=== PATIENT | female | born 1960 | race Caucasian/White ===

== ENCOUNTER → 2018-09-29 08:55 | Outpatient (CLI) | payer BC, SELFPAY ==
[2018-09-29 10:28] LABS: C-Reactive Protein 1.7 mg/L (0.0-0.9); Uric Acid 4.8 mg/dL (2.6-7.2)
[2018-09-30 12:38] LABS: RA Latex Turbid. 10.1 IU/mL (0.0-13.9)
[2018-09-30 15:46] LABS: Erythrocyte Sedimentation Rate 11 mm/hr (0-30)
[2018-10-03 13:07] LABS: Anti-Cyclic Citrullinated Pept 9 units (0-19)
[2018-10-05 08:06] LABS: Antinuclear Antibodies, IFA Positive (.)
== END ==
PROVIDERS: Visit Provider Orthopaedic Surgery Hand Surgery
DX: M06.049 Rheumatoid arthritis without rheumatoid factor, unspecified hand (principal)
CPT/HCPCS: 36415; 84550; 85651; 86038; 86140; 86200; 86431

== ENCOUNTER → 2019-02-09 09:21 | Outpatient (CLI) | payer BC, SELFPAY ==
--- NOTE | 2019-02-09 09:22 | XR_ITS ---
XR DEXA axial skeleton HISTORY: ITS.REASON: screen ORDERING PHYSICIAN: Benton Wheatley MD PATIENT AGE: 58 years COMPARISON: 05/21/2016 FINDINGS: The BMD measured at the Right femoral neck is 0.888 g/cm squared with a T score of -1.1. This is considered Osteopenic according to the World Health Organization criteria. Fracture risk is Moderate. Treatment is advised. The L1 L4 density has a T score 0.9 unchanged. The density is also unchanged IMPRESSION: Osteopenia with moderate fracture risk. Suggest follow-up exam January 2021
--- NOTE | 2019-02-09 09:22 | MM_ITS ---
MM Dig screening mamm BI w/CAD CAD Screening COMPARISON: Digital mammograms with CAD 05/26/2016 INDICATION: There is no personal or family history of breast cancer TECHNIQUE: Standard CC and MLO images were obtained. R2 CAD reviewed. FINDINGS: Scattered fibroglandular densities are seen throughout both breasts. There are stable tiny nodular density outer quadrant left breast. There is a mole marker left breast. There is no suspicious lesion and no suspicious microcalcifications. IMPRESSION: Fibrofatty parenchyma no suspicious lesion seen BI-RADS Category: 2 Benign Finding(s) RECOMMENDED FOLLOW-UP: 1YR - 1 YEAR FOLLOW-UP (A letter has been sent to the patient regarding results of the study.)
== END ==
PROVIDERS: PCP Internal Medicine Adolescent Medicine; Visit Provider Obstetrics & Gynecology
DX: Z78.0 Asymptomatic menopausal state (principal); Z12.31 Encounter for screening mammogram for malignant neoplasm of breast
CPT/HCPCS: 77067; 77080

== ENCOUNTER → 2019-03-02 09:41 | Outpatient (CLI) | payer BC, SELFPAY ==
[2019-03-02 11:52] LABS: Basophils % 0.4 % (0.1-2.0); Eosinophils # 0.1 K/mm3 (0.0-0.4); Eosinophils % 1.1 % (0.1-12.0); Hematocrit 46.1 % (37.0-47.0); Hemoglobin 14.8 g/dL (12.2-16.2); Lymphocytes # 2.2 K/mm3 (0.7-4.5); Lymphocytes % 29.6 % (10-50); Mean Corpuscular HGB Conc 32.1 g/dL (31.8-35.4); Mean Corpuscular Hemoglobin 29.5 pg (27.0-31.2); Mean Corpuscular Volume 91.8 fl (81-99); Mean Platelet Volume 7.9 fl (7.4-10.4); Monocytes # 0.3 K/mm3 (0.1-1.0); Monocytes % 3.6 % (1.7-9.3); Neutrophils # 4.9 K/mm3 (1.8-7.8); Neutrophils % 65.1 % (37.0-80.0); Platelet Count 358 K/mm3 (142-424); Red Blood Count 5.02 M/mm3 (4.20-5.40); Red Cell Distribution Width 12.9 % (11.5-17.5); White Blood Count 7.5 K/mm3 (4.8-10.8)
[2019-03-02 12:10] LABS: Alanine Aminotransferase 28 U/L (12-78); Albumin Level 3.5 gm/dL (3.4-5.0); Alkaline Phosphatase 79 U/L (46-116); Anion Gap 11.9 mEq/L (5-15); Aspartate Amino Transferase 19 U/L (15-37); Bilirubin,Total 0.6 mg/dL (0.2-1.0); Blood Urea Nitrogen 12 mg/dL (7-18); Carbon Dioxide 31 mmol/L (21.0-32.0); Chloride 101 mmol/L (98-107); Cholesterol 252 mg/dL (140-200); Creatinine,Serum 0.76 mg/dL (0.55-1.02); Estimated Glomerular Filt Rate 79 ml/min (>60); GFR (African American) 95 ML/MIN (>60); Globulin 3.6 gm/dl (1.3-3.2); Glucose 101 mg/dL (74-106); HDL Cholesterol 36 mg/dL (29-89); LDL Cholesterol 161 mg/dL (0-130); Potassium 3.9 mmoL/L (3.5-5.1); Sodium 140 mmol/L (136-145); Total Protein,Serum 7.1 gm/dL (6.4-8.2); Triglycerides 273 mg/dL (30-200); VLDL Cholesterol 55 mg/dL (0-40)
== END ==
PROVIDERS: Visit Provider Internal Medicine Adolescent Medicine
DX: R06.02 Shortness of breath (principal); I10 Essential (primary) hypertension
CPT/HCPCS: 36415; 80053; 80061; 85025

== ENCOUNTER → 2019-05-11 07:53 | Outpatient (CLI) | payer BC, SELFPAY ==
--- NOTE | 2019-05-11 07:59 | XR_ITS ---
PROCEDURE: XR SHOULDER RT MIN 2V CLINICAL INDICATION: Right shoulder pain COMPARISON: No exams were available for comparison FINDINGS: No fracture, dislocation, lytic change, or blastic change evident. No significant degenerative change IMPRESSION: No acute findings. Dictated by: Cy Banks MD 05/11/2019 18:20 Electronically signed by Cy Banks MD in [place] 05/11/2019 18:20
== END ==
PROVIDERS: PCP Internal Medicine Adolescent Medicine; Visit Provider Orthopaedic Surgery
DX: M25.511 Pain in right shoulder (principal)
CPT/HCPCS: 73030

== ENCOUNTER 2019-05-11 09:38 | Outpatient (RCR) | payer BC, SELFPAY | END 2019-05-11 09:50 | disposition home or self-care (01) | LOC: OT 09:38 | PROVIDERS: Visit Provider Orthopaedic Surgery | DX: M25.531 Pain in right wrist (principal) | CPT/HCPCS: 97763 ==

== ENCOUNTER → 2019-05-23 15:19 | Outpatient (CLI) | payer BC, SELFPAY ==
--- NOTE | 2019-05-23 15:20 | MR_ITS ---
PROCEDURE: MR SHOULDER RT WO CON CLINICAL INDICATION: shoulder pain Right shoulder pain since August, injury with pain with limited range of motion COMPARISON: XR SHOULDER RT MIN 2V from 05/11/2019 TECHNIQUE: Routine multiplanar multi echo sequences are performed without gadolinium enhancement. FINDINGS: There are hypertrophic changes of the acromioclavicular joint with downsloping acromion and mild subacromial stenosis. There is mild impingement upon the musculotendinous junction of the supraspinatus muscle and tendon. There is mild thickening of the supraspinatus tendon with slight increase in T2 signal consistent with tendinopathy/tendinosis. There is also mild thickening of the infraspinatus tendon with increased T2 signal. There is some discontinuity involving the distal fibers superiorly of the supraspinatus tendon consistent with a partial tear. No evidence of complete or full-thickness tear. The subscapularis and teres minor tendons are intact. There does appear to be a SLAP tear of the anterior glenoid labrum. No fracture or dislocation is evident. Bicipital tendon is in place.. Mild osteoarthritic changes of the glenohumeral joint IMPRESSION: 1. Acromioclavicular arthropathy with subacromial stenosis and tendinopathy/tendinosis of the supraspinatus and infraspinatus tendon with suspected partial tear distally of the supraspinatus tendon 2. Irregular increased T2 signal of the anterior glenoid labrum consistent with a SLAP tear of the anterior glenoid labrum. Dictated by: Cy Banks MD 05/24/2019 07:38 Electronically signed by Cy Banks MD in [place] 05/26/2019 05:16
== END ==
PROVIDERS: PCP Internal Medicine Adolescent Medicine; Visit Provider Orthopaedic Surgery
DX: M75.00 Adhesive capsulitis of unspecified shoulder (principal)
CPT/HCPCS: 73221

== ENCOUNTER → 2019-06-22 11:35 | Outpatient (CLI) | payer BC, SELFPAY ==
[2019-06-22 12:18] LABS: Basophils # 0.1 K/mm3 (0-0.2); Basophils % 0.5 % (0.1-2.0); Eosinophils # 0.1 K/mm3 (0.0-0.4); Hematocrit 45.4 % (37.0-47.0); Hemoglobin 14.7 g/dL (12.2-16.2); Lymphocytes # 2.8 K/mm3 (0.7-4.5); Lymphocytes % 28.3 % (10-50); Mean Corpuscular HGB Conc 32.4 g/dL (31.8-35.4); Mean Corpuscular Hemoglobin 29.9 pg (27.0-31.2); Mean Corpuscular Volume 92.2 fl (81-99); Mean Platelet Volume 7.6 fl (7.4-10.4); Monocytes # 0.5 K/mm3 (0.1-1.0); Monocytes % 4.7 % (1.7-9.3); Neutrophils # 6.4 K/mm3 (1.8-7.8); Neutrophils % 65.5 % (37.0-80.0); Platelet Count 331 K/mm3 (142-424); Red Blood Count 4.92 M/mm3 (4.20-5.40); Red Cell Distribution Width 14.3 % (11.5-17.5); White Blood Count 9.8 K/mm3 (4.8-10.8)
[2019-06-22 13:32] LABS: Anion Gap 11.5 mEq/L (5-15); Blood Urea Nitrogen 16 mg/dL (7-18); Calcium 9.9 mg/dL (8.5-10.1); Carbon Dioxide 28 mmol/L (21.0-32.0); Chloride 100 mmol/L (98-107); Creatinine,Serum 0.79 mg/dL (0.55-1.02); Estimated Glomerular Filt Rate 75 ml/min (>60); GFR (African American) 91 ML/MIN (>60); Glucose 90 mg/dL (74-106); Potassium 3.5 mmoL/L (3.5-5.1); Sodium 136 mmol/L (136-145)
== END ==
PROVIDERS: Visit Provider Orthopaedic Surgery
DX: Z01.818 Encounter for other preprocedural examination (principal); M25.511 Pain in right shoulder
CPT/HCPCS: 36415; 80048; 85025

== ENCOUNTER 2019-06-27 09:30 | Outpatient (RCR) | payer BC, SELFPAY ==
--- NOTE | 2019-05-16 11:46 | HMH.OTOPEV ---
OT Inpatient Evaluation Rehab OT Outpatient Eval Start: 05/16/19 10:53 Freq: Status: Active Protocol: Document 05/16/19 10:53 TFRY (Rec: 05/16/19 11:46 TFRY [id number]) Electronically Signed By Alina Snell OT 05/16/19 10:53 Outpatient Therapy Subjective History Subjective History This is a 58 year old right handed female referred to occupational therapy services. Patient was referred to occupational therapy for right shoulder adhesive capsulitis. The problem started in August after the patient injuried her right wrist at work. Chief Complaint Pain,Stiff Symptom Type Ache,Throb,Dull Symptoms Relieved By Rest/Positioning Symptoms Aggravated By Physical Activity Prior Functional Limitations None Current Functional Limitations Reaching,Lifting,Housework, Sleeping Symptom Description Activity Dependent Level of pain today (0-10) 0 Pain scale - at its best (0-10) 0 Pain scale - at its worst (0-10) 8 Shoulder/Elbow Eval Shoulder Objective Measurements Shoulder ROM Right Shoulder Abduction Active Range of 85 Motion (degrees) Shoulder Abduction Passive Range of 90 Motion (degrees) Shoulder Flexion Active Range of Motion 110 (degrees) Query Text: Shoulder Flexion Passive Range of Motion 133 (degrees) Shoulder External Rotation Active Range 20 of Motion (degrees) Shoulder External Rotation Passive Range 25 of Motion (degrees) Shoulder Internal Rotation Active Range 35 of Motion (degrees) Shoulder Internal Rotation Passive Range 54 of Motion (degrees) Shoulder Extension Active Range of 25 Motion (degrees) pain with active ROM shoulder exam right standard pain with passive ROM shoulder exam right standard decreased ROM shoulder exam standard right Shoulder MMT Shoulder Abduction Strength Grade 3+ Fair+ Shoulder Extension Strength Grade 3+ Fair+ Shoulder Flexion Strength Grade 3+ Fair+ Shoulder Horizontal Abduction Strength 3+ Fair+ Grade Shoulder Horizontal Adduction Strength 3+ Fair+ Grade Shoulder External Rotation Strength 3+ Fair+ Grade Shoulder Internal Rotation Strength 3+ Fair+ Grade Shoulder Strength Patient Testing Sitting Position
--- NOTE | 2019-06-13 11:27 | HMH.RHREAS ---
Rehab Reassessment Rehab OP Re-assessment Start: 06/13/19 11:15 Freq: Status: Active Protocol: Document 06/13/19 11:15 TFRY (Rec: 06/13/19 11:27 TFRY [id number]) Electronically Signed By Alina Snell OT 06/13/19 11:15 Rehab Re-assessment Subjective Subjective I think it's about 40% better . Objective Objective Notes Patient seen this date for skilled occupational therapy services. See exercise flow sheet for exercises. Right shoulder PROM - Flexion - 150; abduction - 115; ext. rot. - 55; int. rot. - 30. Strength - 3+/4-/5 throughout. Assessment Progress Assessment Progressing as Expected Assessment Notes ROM improving gradually as well as strength Patient goals met Met HEP goal and pain decreasing with activities per patient report. Goals Not Met ROM/strength Plan Plan Continue working on improving strength and ROM Frequency of Therapy 2x per week Duration of therapy 4 weeks Time and Billing Re-Eval Time 5 Re-Eval Billing Units 0 PHYSICIAN CERTIFICATION: I certify the specified therapy services for Tracey Jacobs are required, authorized, and reviewed every 30 days.
== END 2019-06-27 09:35 | disposition home or self-care (01) ==
LOC: OT 09:30
PROVIDERS: PCP Internal Medicine Adolescent Medicine; Visit Provider Orthopaedic Surgery
DX: M75.01 Adhesive capsulitis of right shoulder (principal); M75.111 Incomplete rotator cuff tear or rupture of right shoulder, not specified as traumatic; S43.431D Superior glenoid labrum lesion of right shoulder, subsequent encounter
CPT/HCPCS: 97014; 97110; 97140; 97164; 97165; G0283

== ENCOUNTER → 2019-09-04 13:37 | Outpatient (CLI) | payer BC, SELFPAY ==
--- NOTE | 2019-09-04 13:41 | XR_ITS ---
PROCEDURE: XR SHOULDER RT MIN 2V CLINICAL INDICATION: shoulder pain Limited range of motion COMPARISON: XR SHOULDER RT MIN 2V from 05/11/2019 MR SHOULDER RT WO CON from 05/23/2019 FINDINGS: There appears to have been osteotomy at distal aspect of clavicle compared to 05/11/2019. Also appears to be a fracture the superior the distal clavicle. Please correlate with surgical procedure. IMPRESSION: Postsurgical changes distal clavicle with a fracture of the distal clavicle superiorly Dictated by: Cy Banks MD 09/04/2019 14:49 Electronically signed by Cy Banks MD in [place] 09/04/2019 14:49
== END ==
PROVIDERS: PCP Internal Medicine Adolescent Medicine; Visit Provider Orthopaedic Surgery
DX: S43.431A Superior glenoid labrum lesion of right shoulder, initial encounter (principal)
CPT/HCPCS: 73030

== ENCOUNTER → 2019-10-03 13:26 | Outpatient (POV) | payer BC, SELFPAY | PROVIDERS: PCP Dermatology; Visit Provider Dermatology | DX: Z00.00 Encounter for general adult medical examination without abnormal findings (principal) ==

== ENCOUNTER → 2019-11-07 13:26 | Outpatient (CLI) | payer BC, SELFPAY ==
[2019-11-07 15:25] LABS: Hemoglobin A1C 5.5 % (4.0-6.0)
== END ==
PROVIDERS: Visit Provider Orthopaedic Surgery
DX: M75.00 Adhesive capsulitis of unspecified shoulder (principal)
CPT/HCPCS: 36415; 83036

== ENCOUNTER 2019-12-01 10:30 | Outpatient (RCR) | payer BC, SELFPAY ==
--- NOTE | 2019-07-06 10:18 | HMH.OTOPEV ---
OT Inpatient Evaluation Rehab OT Outpatient Eval Start: 07/06/19 09:26 Freq: Status: Active Protocol: Document 07/06/19 09:27 TFRY (Rec: 07/06/19 10:10 TFRY [id number]) Electronically Signed By Alina Snell OT 07/06/19 09:27 Outpatient Therapy Subjective History Subjective History This is a 58 year old right hand female referred to occupational as patient is status post right shoulder arthroscopy, biceps tenotomy, capsular release, subacrominal decompression with acromioplasty, and distal clavicle excision. Chief Complaint Pain Symptom Type Ache,Throb,Sharp,Dull Symptoms Relieved By Rest/Positioning,Prescription Meds Symptoms Aggravated By Physical Activity Prior Functional Limitations None Current Functional Limitations Reaching,Lifting,Housework, Dressing,Driving,Sleeping Symptom Description Constant but Variable Level of pain today (0-10) 9 Pain scale - at its best (0-10) 5 Pain scale - at its worst (0-10) 9 Shoulder/Elbow Eval Shoulder Objective Measurements Palpation Tenderness tenderness shoulder exam standard right Shoulder Palpation Findings Tenderness swelling shoulder exam standard right Shoulder ROM Right Shoulder Abduction Passive Range of 70 Motion (degrees) Shoulder Flexion Passive Range of Motion 135 (degrees) Shoulder External Rotation Passive Range 25 of Motion (degrees) Shoulder Internal Rotation Passive Range 30 of Motion (degrees) pain with passive ROM shoulder exam right standard decreased ROM shoulder exam standard right Shoulder MMT Shoulder Strength Reason Not Measured Orthopedic Precautions Elbow Objective Measurements OT Outpatient Assessment Impairments Problems/Impairments Palpation Tenderness,Impaired Range of Motion,Impaired Strength,Impaired Lifting, Impaired Dressing,Impaired Shower/Bathing,Impaired Household Care,Subjective C/O Pain Prognosis Rehab Potential Good Clinical Impression Consistent with Diagnosis Yes Short Term Goals Number of Weeks 4 Increase Range of Motion Yes: PROM right shoulder - WFL Improve Ability to Dress Self Yes: Patient report increased independence Improve Ability to Shower/Bathe Self Yes: Patient repor
--- NOTE | 2019-07-06 10:46 | HMH.RHREAS ---
Rehab Reassessment Rehab OP Re-assessment Start: 07/06/19 10:33 Freq: Status: Active Protocol: Document 07/06/19 10:34 TFRY (Rec: 07/06/19 10:46 TFRY [id number]) Electronically Signed By Alina Snell OT 07/06/19 10:34 Rehab Re-assessment Subjective Subjective It is at least 75% better from when we started. Objective Objective Notes Patient seen this date for skilled occupational therapy services. See exercise flow sheet for exercises. Reassessment of left shoulder AROM: flexion - 165; abduction - 135; int. rot. - WFL; ext. rot. - WFL. Left shoulder strength - flexion - 3+/5; abduction - 3/ 3+/5; int. rot. - 3+/5; ext. rot. - 3+/5. Reports that she has increased indpendence at home. Assessment Progress Assessment Progressing as Expected Assessment Notes AROM and strength are both improving. Patient goals met STG's - 6/7 LTG's- 11/08 Goals Not Met strength Plan Plan Continue OT working on unmet goals. Frequency of Therapy 2x per week Duration of therapy 5 weeks Time and Billing Re-Eval Time 5 Re-Eval Billing Units 0 PHYSICIAN CERTIFICATION: I certify the specified therapy services for Tracey Jacobs are required, authorized, and reviewed every 30 days.
--- NOTE | 2019-08-10 13:41 | HMH.RHREAS ---
Rehab Reassessment Rehab OP Re-assessment Start: 07/06/19 10:33 Freq: Status: Active Protocol: Document 08/10/19 10:57 MIRZA (Rec: 08/10/19 13:41 MIRZA [id number]) Electronically Signed By Alcides Patel OT 08/10/19 10:57 Rehab Re-assessment Subjective Subjective It is still giving me fits. Objective Objective Notes Pt continues to be seen twice a week in order to address left shoulder deficits. Pt engages in AROM/AAROM/ strengthening exercises. Pt also receives PROM manual stretching to left shoulder in all planes. Pt also receives modalities in order to decrease pain/inflammation. Assessment Progress Assessment Slower Than Expected Assessment Notes Pt continues to have significant decline in AROM and strength at left shoulder. Reassessment of left shoulder Current L shoulde rAROM: flexion - 125; abduction - 110 ; int. rot. - 50; ext. rot. - 50. PROM Current L shoulder Flex: 154 degrees Abd: 125 degrees ER: 58 degrees IR: 48 degrees Left shoulder strength - flexion - 3/5; abduction - 3/5 ; int. rot. - 3/5; ext. rot. - 3/5. 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 Plan Plan Continue OT working on unmet goals. Frequency of Therapy 2x per week Duration of therapy 5 weeks Time and Billing Re-Eval Time 15 Re-Eval Billing Units 1 PHYSICIAN CERTIFICATION: I certify the specified therapy services for Tracey Jacobs are required, authorized, and reviewed every 30 days.
--- NOTE | 2019-08-10 13:48 | HMH.RHREAS ---
Rehab Reassessment Rehab OP Re-assessment Start: 07/06/19 10:33 Freq: Status: Active Protocol: Document 08/10/19 10:57 MIRZA (Rec: 08/10/19 13:41 HANKL [id number]) Electronically Signed By Alcides Patel OT 08/10/19 10:57 Rehab Re-assessment Subjective Subjective It is still giving me fits. Objective Objective Notes Pt continues to be seen twice a week in order to address right shoulder deficits. Pt engages in AROM/AAROM/ strengthening exercises. Pt also receives PROM manual stretching to right shoulder in all planes. Pt also receives modalities in order to decrease pain/inflammation. Assessment Progress Assessment Slower Than Expected Assessment Notes Pt continues to have significant decline in AROM and strength at right shoulder . Reassessment of Right shoulder Current R shoulder AROM: flexion - 125; abduction - 110 ; int. rot. - 50; ext. rot. - 50. PROM Current R shoulder Flex: 154 degrees Abd: 125 degrees ER: 58 degrees IR: 48 degrees Right shoulder strength - flexion - 3/5; abduction - 3/5 ; int. rot. - 3/5; ext. rot. - 3/5. 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 Plan Plan Continue OT working on unmet goals. Frequency of Therapy 2x per week Duration of therapy 5 weeks Time and Billing Re-Eval Time 15 Re-Eval Billing Units 1 PHYSICIAN CERTIFICATION: I certify the specified therapy services for Tracey Jacobs are required, authorized, and reviewed every 30 days.
--- NOTE | 2019-09-13 14:58 | HMH.RHREAS ---
Rehab Reassessment Rehab OP Re-assessment Start: 07/06/19 10:33 Freq: Status: Active Protocol: Document 09/13/19 13:54 RMARSHALL (Rec: 09/13/19 14:58 RMARSHALL [id number]) Electronically Signed By Alcides Patel OT 09/13/19 13:54 Rehab Re-assessment Subjective Subjective I just don't feel like I am getting better. Objective Objective Notes Pt continues to be seen twice a week in order to address right shoulder deficits. Pt engages in AROM/AAROM/ strengthening exercises. Pt also receives PROM manual stretching to right shoulder in all planes. Pt also receives modalities in order to decrease pain/inflammation. Assessment Progress Assessment Slower Than Expected Assessment Notes Pt continues to have significant decline in AROM and strength at right shoulder . Pt reports pain at a 7/10 during use every day. Pt demonstrates minimal improvement in AROM in both flexion and external rotation. Reassessment of Right shoulder Current R shoulder AROM: flexion - 130; abduction - 110 ; int. rot. - 60; ext. rot. - 50. PROM Current R shoulder Flex: 154 degrees Abd: 125 degrees ER: 58 degrees IR: 48 degrees Right shoulder strength - flexion - 3/5; abduction - 3/5 ; int. rot. - 3/5; ext. rot. - 3/5. 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 Plan Plan Continue OT working on unmet goals. Frequency of Therapy 2x per week Duration of therapy 5 weeks Time and Billing Re-Eval Time 15 Re-Eval Billing Units
--- NOTE | 2019-10-10 15:51 | HMH.RHREAS ---
Rehab Reassessment Rehab OP Re-assessment Start: 07/06/19 10:33 Freq: Status: Active Protocol: Document 10/10/19 15:45 RMARSHALL (Rec: 10/10/19 15:51 RMARSHALL [id number]) Electronically Signed By Alcides Patel OT 10/10/19 15:45 Rehab Re-assessment Objective Objective Notes Pt continues to be seen twice a week in order to address right shoulder deficits. Pt engages in AROM/AAROM/ strengthening exercises. Pt also receives PROM manual stretching to right shoulder in all planes. Pt also receives modalities in order to decrease pain/inflammation. Assessment Progress Assessment Slower Than Expected Assessment Notes Pt continues to have significant decline in AROM and strength at right shoulder . Pt was recently given a steroid injection by surgeon this previous wednesday. Pt informed therapist at this time she does not feel the injection has helped. Pt reports pain at a 8/10 at worse. Pt demonstrates minimal improvement in AROM in both flexion and external rotation. Reassessment of Right shoulder Current R shoulder AROM: flexion - 112; abduction - 100 ; int. rot. - 70; ext. rot. - 50. PROM Current R shoulder Flex: 160 degrees Abd: 140 degrees ER: 75 degrees IR: 60 degrees Right shoulder strength - flexion - 3/5; abduction - 3/5 ; int. rot. - 3/5; ext. rot. - 3/5. Pt appears to have delcined since last re-assessment with AROM. However, pt has improved with PROM. 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 Plan
--- NOTE | 2019-11-15 13:54 | HMH.RHREAS ---
Rehab Reassessment Rehab OP Re-assessment Start: 07/06/19 10:33 Freq: Status: Active Protocol: Document 11/15/19 13:03 RMARSHALL (Rec: 11/15/19 13:53 RMARSHALL [id number]) Electronically Signed By Alcides Patel OT 11/15/19 13:03 Rehab Re-assessment Subjective Subjective I still have a lot of pain. Objective Objective Notes Pt continues to be seen twice a week in order to address right shoulder deficits. Pt engages in AROM/AAROM/ strengthening exercises. Pt also receives PROM manual stretching to right shoulder in all planes. Pt also receives modalities in order to decrease pain/inflammation. Assessment Progress Assessment Slower Than Expected Assessment Notes Pt continues to have a decline in AROM at right shoulder. Pt claims she still has severe pain often at right shoulder ~ 8/10 at worst. Pt is still having difficulty with sleeping due to pain. Pt demonstrates minimal improvement in AROM in both flexion and external rotation. Reassessment of Right shoulder Current R shoulder AROM: flexion - 132; abduction - 110 ; int. rot. - 80; ext. rot. - 50. PROM Current R shoulder Flex: 160 degrees Abd: 160 degrees ER: 90 degrees IR: 80 degrees Right shoulder strength - flexion - 4/5; abduction - /5; int. rot. - 3/5; ext. rot. - 4/5. Pt appears to have delcined since last re-assessment with AROM. However, pt has improved with PROM. Patient goals met n/a Goals Not Met short term goals Revised Goals Continue progressing towards goals written on initial evaluation. Plan Plan Continue OT working on unmet goals. Frequenc
== END 2019-12-01 10:35 | disposition home or self-care (01) ==
LOC: OT 10:30
PROVIDERS: PCP Internal Medicine Adolescent Medicine; Visit Provider Orthopaedic Surgery
DX: M75.01 Adhesive capsulitis of right shoulder (principal); M75.111 Incomplete rotator cuff tear or rupture of right shoulder, not specified as traumatic; S43.431D Superior glenoid labrum lesion of right shoulder, subsequent encounter
CPT/HCPCS: 97014; 97110; 97140; 97164; 97165; G0283

== ENCOUNTER 2019-12-01 11:00 | Outpatient (RCR) | payer BC, SELFPAY | END 2019-12-01 11:05 | disposition home or self-care (01) | LOC: OT 11:00 | PROVIDERS: PCP Internal Medicine Adolescent Medicine; Visit Provider Orthopaedic Surgery | DX: G56.01 Carpal tunnel syndrome, right upper limb (principal) | CPT/HCPCS: 97014; 97033; 97110; 97140; 97164; 97165; G0283 ==

== ENCOUNTER → 2019-12-15 08:25 | Outpatient (CLI) | payer BC, SELFPAY ==
--- NOTE | 2019-12-15 08:25 | MR_ITS ---
PROCEDURE: MR SHOULDER RT WO CON CLINICAL INDICATION: rt shoulder pain Right shoulder pain with limited range of motion, previous surgery COMPARISON: XR SHOULDER RT MIN 2V from 05/11/2019 MR SHOULDER RT WO CON from 05/23/2019 XR SHOULDER RT MIN 2V from 09/04/2019 TECHNIQUE: Routine multiplanar multi echo sequences are performed without gadolinium enhancement. FINDINGS: Artifact is present from the previous surgery. The supraspinatus and infraspinatus tendons appear intact. There is some increased T2 signal within the supraspinatus tendon distally suggesting tendinopathy/tendinosis. No evidence of full-thickness or complete tear. Osteotomy changes noted of the distal clavicle. There is some thinning with slight increased signal of the bicipital tendon of the long head of the biceps. There is questionable defect in the inferior aspect of the glenoid labrum slightly posterior. There is some artifact present at this region. This could represent a surgical defect. Please correlate with surgical history. IMPRESSION: 1. Status post osteotomy of the AC joint. Artifact is present from the previous surgery 2. No evidence of full-thickness tear of the supraspinatus or infraspinatus tendons. Suspect tendinopathy/tendinosis of the supraspinatus and infraspinatus tendons 3. There is a questionable small defect in the inferior glenoid labrum posteriorly with some artifact in this region possibly due to postsurgical changes. Dictated by: Cy Banks MD 12/20/2019 09:28 Electronically signed by Cy Banks MD in [place] 12/20/2019 09:28
== END ==
PROVIDERS: PCP Internal Medicine Adolescent Medicine; Visit Provider Orthopaedic Surgery
DX: S43.431D Superior glenoid labrum lesion of right shoulder, subsequent encounter (principal)
CPT/HCPCS: 73221

== ENCOUNTER → 2019-12-21 10:12 | Outpatient (CLI) | payer BC, SELFPAY ==
[2019-12-21 11:08] LABS: Basophils # 0.1 K/mm3 (0-0.2); Basophils % 0.9 % (0.1-2.0); Eosinophils # 0.4 K/mm3 (0.0-0.4); Eosinophils % 4.1 % (0.1-12.0); Hematocrit 45.1 % (37.0-47.0); Hemoglobin 14.6 g/dL (12.2-16.2); Mean Corpuscular HGB Conc 32.4 g/dL (31.8-35.4); Mean Corpuscular Hemoglobin 28.8 pg (27.0-31.2); Mean Platelet Volume 7.5 fl (7.4-10.4); Monocytes # 0.5 K/mm3 (0.1-1.0); Monocytes % 4.7 % (1.7-9.3); Neutrophils # 6.7 K/mm3 (1.8-7.8); Neutrophils % 69.3 % (37.0-80.0); Platelet Count 404 K/mm3 (142-424); Red Blood Count 5.06 M/mm3 (4.20-5.40); Red Cell Distribution Width 14.5 % (11.5-17.5); White Blood Count 9.7 K/mm3 (4.8-10.8)
[2019-12-21 11:41] LABS: Chloride 96 mmol/L (98-107); Potassium 3.6 mmoL/L (3.5-5.1); Sodium 135 mmol/L (136-145)
[2019-12-21 11:43] LABS: Alanine Aminotransferase 29 U/L (12-78); Aspartate Amino Transferase 34 U/L (14-36); Blood Urea Nitrogen 11 mg/dl (7-17); Estimated Glomerular Filt Rate 86 ml/min (>60); GFR (African American) 104 ML/MIN (>60)
[2019-12-21 11:44] LABS: Albumin Level 4.6 g/dl (3.5-5.0); Albumin/Globulin Ratio 1.4 (1.1-1.8); Alkaline Phosphatase 90 U/L (38-126); Anion Gap 12.6 mEq/L (5-15); Bilirubin,Total 0.7 mg/dl (0.2-1.3); Calcium 10.8 mg/dl (8.4-10.2); Carbon Dioxide 30 mmol/L (22.0-30.0); Globulin 3.3 g/dL (1.3-3.2); Glucose 107 mg/dl (74-100); Total Protein,Serum 7.9 g/dl (6.3-8.2)
== END ==
PROVIDERS: Visit Provider Orthopaedic Surgery
DX: Z01.818 Encounter for other preprocedural examination (principal)
CPT/HCPCS: 36415; 80053; 84443; 85025

== ENCOUNTER 2020-03-08 15:00 | Outpatient (RCR) | payer BC, SELFPAY | END 2020-03-08 16:00 | disposition home or self-care (01) | LOC: OT 15:00 | PROVIDERS: PCP Internal Medicine Adolescent Medicine; Visit Provider Orthopaedic Surgery | DX: M25.531 Pain in right wrist; R20.0 Anesthesia of skin | CPT/HCPCS: 97110; 97140; 97165 ==

== ENCOUNTER 2020-03-08 15:30 | Outpatient (RCR) | payer BC, SELFPAY | END 2020-03-08 16:20 | disposition home or self-care (01) | LOC: OT 15:30 | PROVIDERS: PCP Internal Medicine Adolescent Medicine; Visit Provider Orthopaedic Surgery | DX: M75.01 Adhesive capsulitis of right shoulder (principal) | CPT/HCPCS: 97014; 97110; 97140; 97166; G0283 ==

== ENCOUNTER → 2020-05-20 12:22 | Outpatient (CLI) | payer BC, SELFPAY ==
[2020-05-20 13:01] LABS: Chloride 101 mmol/L (98-107)
[2020-05-20 13:02] LABS: Potassium 4.1 mmoL/L (3.5-5.1); Sodium 139 mmol/L (136-145)
[2020-05-20 13:04] LABS: Alanine Aminotransferase 37 U/L (12-78); Alkaline Phosphatase 70 U/L (38-126); Anion Gap 13.1 mEq/L (5-15); Aspartate Amino Transferase 36 U/L (14-36); Bilirubin,Total 0.5 mg/dl (0.2-1.3); Blood Urea Nitrogen 15 mg/dl (7-17); Carbon Dioxide 29 mmol/L (22.0-30.0); Estimated Glomerular Filt Rate 74 ml/min (>60); GFR (African American) 89 ML/MIN (>60)
[2020-05-20 13:05] LABS: Albumin Level 4.5 g/dl (3.5-5.0); Albumin/Globulin Ratio 1.7 (1.1-1.8); Calcium 10.6 mg/dl (8.4-10.2); Chol/HDL Ratio 8.4 (1-3.5); Cholesterol 227 mg/dl (140-200); Globulin 2.6 g/dL (1.3-3.2); Glucose 99 mg/dl (74-100); HDL Cholesterol 27 mg/dl (40-60); Total Protein,Serum 7.1 g/dl (6.3-8.2)
[2020-05-20 13:08] LABS: Basophils % 0.4 % (0.1-2.0); Eosinophils # 0.1 K/mm3 (0.0-0.4); Hematocrit 44.5 % (37.0-47.0); Hemoglobin 14.8 g/dL (12.2-16.2); Lymphocytes # 2.2 K/mm3 (0.7-4.5); Mean Corpuscular HGB Conc 33.2 g/dL (31.8-35.4); Mean Corpuscular Hemoglobin 28.6 pg (27.0-31.2); Mean Corpuscular Volume 86.1 fl (81-99); Mean Platelet Volume 7.7 fl (7.4-10.4); Monocytes # 0.5 K/mm3 (0.1-1.0); Monocytes % 6.6 % (1.7-9.3); Neutrophils # 4.3 K/mm3 (1.8-7.8); Neutrophils % 60.9 % (37.0-80.0); Platelet Count 356 K/mm3 (142-424); Red Blood Count 5.16 M/mm3 (4.20-5.40); Triglycerides 455 mg/dl (30-150); White Blood Count 7.1 K/mm3 (4.8-10.8)
[2020-05-20 13:16] LABS: Direct LDL Cholesterol 105.98 mg/dL (100-129)
== END ==
PROVIDERS: Visit Provider Internal Medicine Adolescent Medicine
DX: E78.5 Hyperlipidemia, unspecified (principal); I10 Essential (primary) hypertension
CPT/HCPCS: 36415; 80053; 80061; 85025

== ENCOUNTER → 2021-01-20 11:33 | Outpatient (CLI) | payer BC, SELFPAY ==
[2021-01-20 11:57] LABS: Basophils # 0.1 K/mm3 (0-0.2); Eosinophils # 0.2 K/mm3 (0.0-0.4); Eosinophils % 2.8 % (0.1-12.0); Hematocrit 42.9 % (37.0-47.0); Hemoglobin 14.6 g/dL (12.2-16.2); Lymphocytes # 1.7 K/mm3 (0.7-4.5); Lymphocytes % 27.7 % (10-50); Mean Corpuscular HGB Conc 34.1 g/dL (31.8-35.4); Mean Corpuscular Hemoglobin 28.8 pg (27.0-31.2); Mean Corpuscular Volume 84.7 fl (81-99); Mean Platelet Volume 7.8 fl (7.4-10.4); Monocytes # 0.4 K/mm3 (0.1-1.0); Monocytes % 5.7 % (1.7-9.3); Neutrophils % 62.8 % (37.0-80.0); Platelet Count 362 K/mm3 (142-424); Red Blood Count 5.07 M/mm3 (4.20-5.40); Red Cell Distribution Width 13.9 % (11.5-17.5); White Blood Count 6.3 K/mm3 (4.8-10.8)
[2021-01-20 12:20] LABS: Alanine Aminotransferase 41 U/L (12-78); Albumin Level 4.9 g/dl (3.5-5.0); Albumin/Globulin Ratio 1.7 (1.1-1.8); Alkaline Phosphatase 68 U/L (38-126); Anion Gap 13.1 mEq/L (5-15); Aspartate Amino Transferase 33 U/L (14-36); Bilirubin,Total 0.5 mg/dl (0.2-1.3); Blood Urea Nitrogen 18 mg/dl (7-17); Calcium 10.9 mg/dl (8.4-10.2); Carbon Dioxide 30 mmol/L (22.0-30.0); Chloride 103 mmol/L (98-107); Chol/HDL Ratio 5.7 (1-3.5); Cholesterol 211 mg/dl (140-200); Estimated Glomerular Filt Rate 64 ml/min (>60); GFR (African American) 78 ML/MIN (>60); Globulin 2.9 g/dL (1.3-3.2); Glucose 104 mg/dl (74-100); HDL Cholesterol 37 mg/dl (40-60); Potassium 5.1 mmoL/L (3.5-5.1); Sodium 141 mmol/L (136-145); Total Protein,Serum 7.8 g/dl (6.3-8.2); Triglycerides 170 mg/dl (30-150); VLDL Cholesterol 34 mg/dL (0-40)
[2021-01-20 12:31] LABS: Direct LDL Cholesterol 136.89 mg/dL (100-129)
[2021-01-20 12:51] LABS: Thyroid Stimulating Hormone 0.84 uIU/mL (0.465-4.68)
[2021-01-20 13:09] LABS: Vitamin B12 627 pg/mL (239-931)
== END ==
PROVIDERS: Visit Provider Internal Medicine Adolescent Medicine
DX: E78.5 Hyperlipidemia, unspecified (principal); F51.01 Primary insomnia
CPT/HCPCS: 36415; 80053; 80061; 82607; 84443; 85025

== ENCOUNTER → 2021-10-02 13:56 | Outpatient (CLI) | payer MEDICARE, SELFPAY ==
--- NOTE | 2021-10-02 14:00 | MR_ITS ---
FINAL REPORT CLINICAL HISTORY: ANTERIOR SHOULDER PAIN, ROTATOR CUFF SYNDROME OF LT SHOULDER. SHOULDER PAIN UNABLE TO SLEEP AT NIGHT. PAIN WHEN RAISING ARM ABOVE HEAD. SYMPTOMS [id number]. NO INJURY OR TRAUMA. FINDINGS: Multiplanar MR imaging of the left shoulder was performed without contrast. There is supraspinatus and infraspinatus tendinosis. There is a small intrasubstance tear of the distal supraspinatus tendon of less than 50%. There is no full-thickness tendon tear. There is moderate acromioclavicular joint degenerative change. A small amount of fluid is seen in the subacromial/subdeltoid bursa. The glenoid labrum is intact. The long head of the biceps tendon is intact. A small glenohumeral joint effusion is seen. There is no evidence of fracture or dislocation. There is a small subchondral cyst in the superior humeral head. The musculature is intact. There is no evidence of soft tissue mass. IMPRESSION: 1. Supraspinatus and infraspinatus tendinosis. 2. Small intrasubstance tear of the distal supraspinatus tendon of less than 50%. No full-thickness tendon tear. 3. Other findings as above. Reviewed, Interpreted and Dictated by Tuan Chow III, MD Transcribed by LOYDA Rodriguez Authenticated by Tuan Chow III, MD on 10/02/2021 04:18:30 PM [facility]
== END ==
PROVIDERS: PCP Internal Medicine Adolescent Medicine; Visit Provider Internal Medicine Adolescent Medicine
DX: M25.512 Pain in left shoulder (principal); M75.102 Unspecified rotator cuff tear or rupture of left shoulder, not specified as traumatic
CPT/HCPCS: 73221

== ENCOUNTER → 2021-11-17 12:05 | Outpatient (CLI) | payer MEDICARE, SELFPAY | PROVIDERS: PCP Internal Medicine Adolescent Medicine; Visit Provider Surgery | DX: Z01.812 Encounter for preprocedural laboratory examination (principal) | CPT/HCPCS: C9803; U0003; U0005 ==

== ENCOUNTER 2021-11-19 06:19 | Day surgery (SDC) | payer MEDICARE, SELFPAY ==
[2021-11-17 13:42] VITALS: BMI 29.6
[2021-11-19 06:36] VITALS: BP 153/76; PULSE 84; RESP 18; TEMP 36.8; O2SAT 94
--- NOTE | 2021-11-19 07:21 | HMH.ANESCL ---
[facility] Anesthesia Checklist - Structural Data Admitted From: Home Planned Operative Procedure/s: flex sig Consent for Planned Operative Procedure(s) Verified: Yes - Additional verifications Anesthesia Reactions: No Hx Blood Transfusions: No Blood Transfusion Reaction: No - Airway Assessment C-Spine Mobility Assessed: Yes TMJ Mobility Assessed: Yes Dentition: Dentures-good fit - Neurological Assessment Level of Consciousness: Awake, Alert, Appropriate - Anesthesia Plan Anesthesia Risk discussed: Yes Anesthesia Plan: Verified ASA Class: II Anesthesia Type: MAC [facility] History I have reviewed the patient's past medical history: Yes Medical History: Reports:: Hypertension, Osteoporosis Denies:: Cancer, Diabetes Mellitus Type 1, Diabetes Mellitus Type 2, Internal Pacemaker, Lung Disease, MRSA, Seizures *Have you ever received a pneumonia vaccine?: No *Have you received a flu vaccine this season?: No Other Medical History: Reports: Osteoporosis. Denies: Blood Transfusion Reaction Anesthesia experience/problems:: none Laterality Cases: Right: Arthroscopy Shoulder, Bilateral: Tonsillectomy Other Surgeries: Yes: Colonoscopy, Hysterectomy-Total, Other. No: Pacemaker Amputation: No Fractures: No - *Social History Last grade of school completed: High school graduate Smoking Status: Former smoker Tobacco Type: cigarettes # Packs/Day (cigarettes): 1 Alcohol Intake: never Substance Use Type: denies use *Occupational Status:: retired Housing: house Household Members: spouse *Travel in the last 8 weeks: None Family Hx:: No significant family history
[2021-11-19 07:28] VITALS: O2SAT 94
--- NOTE | 2021-11-19 07:49 | HMH.SCOPE ---
- Procedure: Date: 11/19/21 Patient Date of :: 1960 Procedure Performed:: Anoscopy Flexible sigmoidoscopy with biopsy Indications:: Diarrhea Bright red blood per rectum Performing Provider:: Ayden Vazquez MD Referring Provider:: Dr. Giles Sedation:: Monitored anesthesia care Procedure:: After informed consent was obtained the patient was taken to the endoscopy suite. Sedation ensued after the patient was transferred to the left lateral decubitus position. Pulse, blood pressure, and oxygen saturation were monitored throughout the procedure. Digital rectal exam revealed minimal mucosal thickening. The anoscope was placed in position. Inflammatory changes and mucosal erosion noted. The endoscope was then placed in position. The rectum and distal sigmoid were evaluated. The endoscope was carefully removed and the patient was transferred to recovery in stable condition. Please see findings and specimens below for detail. Findings:: Fairly severe inflammatory changes with mucosal thickening and patchy erosion throughout distal sigmoid, rectum, and anal canal Specimens:: Fluid for diarrhea panel Rectosigmoid biopsies for culture and pathology Recommendations:: Follow-up diarrhea panel, cultures, and pathology Complications:: No immediate Estimated blood obtained (mL): 1
[2021-11-19 07:50] VITALS: BP 107/53; PULSE 78; RESP 18; TEMP 36.7; O2SAT 95
[2021-11-19 07:58] VITALS: BP 106/68; PULSE 75; RESP 18; O2SAT 94
[2021-11-19 08:06] VITALS: BP 108/69; PULSE 74; RESP 18; O2SAT 96
[2021-11-19 08:15] VITALS: BP 111/67; PULSE 74; RESP 18; O2SAT 96
[2021-11-19 08:33] LABS: Adenovirus F 40/41, stool Not Detected (NotDetected); Astrovirus Not Detected (NotDetected); Campylobacter Not Detected (NotDetected); Clostridium Difficile A/B, PCR Not Detected (NotDetected); Cryptosporidium Not Detected (NotDetected); Cyclospora Cayetanesis Not Detected (NotDetected); Entamoeba histolytica Not Detected (NotDetected); Enteroaggregative E coli Not Detected (NotDetected); Enteropathogenic E coli Not Detected (NotDetected); Enterotoxigenic E coli Not Detected (NotDetected); Giardia lamblia Not Detected (NotDetected); Norovirus Not Detected (NotDetected); Plesimonas Shigalloides, PCR Not Detected (NotDetected); Rotavirus A Not Detected (NotDetected); Salmonella, PCR Not Detected (NotDetected); Sapovirus Not Detected (NotDetected); Shiga-like toxin E coli Not Detected (NotDetected); Shigella Enterovasive E coli Not Detected (NotDetected); Vibrio Cholerae Not Detected (NotDetected); Vibrio, PCR Not Detected (NotDetected); Yersinia Entercolitica, PCR Not Detected (NotDetected)
== END 2021-11-19 08:15 | disposition home or self-care (01) ==
LOC: OUTP 06:21
PROVIDERS: PCP Internal Medicine Adolescent Medicine; Visit Provider Surgery
PROC: 0DJD8ZZ Inspection of Lower Intestinal Tract, Via Natural or Artificial Opening Endoscopic (ICD-10-PCS; CPT 45330; principal; 2021-11-19 07:30)
DX: K63.9 Disease of intestine, unspecified (principal); K62.9 Disease of anus and rectum, unspecified; R19.7 Diarrhea, unspecified; I10 Essential (primary) hypertension; M81.0 Age-related osteoporosis without current pathological fracture; Z88.0 Allergy status to penicillin; Z88.8 Allergy status to other drugs, medicaments and biological substances
CPT/HCPCS: 45331; 87070; 87205; 87507

== ENCOUNTER → 2021-11-24 16:40 | Outpatient (CLI) | payer MEDICARE, SELFPAY ==
[2021-11-24 16:59] LABS: Basophils # 0.2 K/mm3 (0-0.2); Basophils % 1.3 % (0.1-2.0); Eosinophils # 0.5 K/mm3 (0.0-0.4); Eosinophils % 3.9 % (0.1-12.0); Hematocrit 38.2 % (37.0-47.0); Hemoglobin 12.7 g/dL (12.2-16.2); Lymphocytes # 1.4 K/mm3 (0.7-4.5); Lymphocytes % 10.7 % (10-50); Mean Corpuscular HGB Conc 33.2 g/dL (31.8-35.4); Mean Corpuscular Hemoglobin 29.7 pg (27.0-31.2); Mean Corpuscular Volume 89.6 fl (81-99); Mean Platelet Volume 7.2 fl (7.4-10.4); Monocytes # 0.6 K/mm3 (0.1-1.0); Monocytes % 4.7 % (1.7-9.3); Neutrophils # 10.7 K/mm3 (1.8-7.8); Neutrophils % 79.4 % (37.0-80.0); Platelet Count 686 K/mm3 (142-424); Red Blood Count 4.27 M/mm3 (4.20-5.40); Red Cell Distribution Width 13.3 % (11.5-17.5); White Blood Count 13.5 K/mm3 (4.8-10.8)
[2021-11-24 17:35] LABS: Chloride 99 mmol/L (98-107); Potassium 3.1 mmoL/L (3.5-5.1); Sodium 135 mmol/L (136-145)
[2021-11-24 17:38] LABS: Alanine Aminotransferase 33 U/L (12-78); Albumin Level 3.5 g/dl (3.5-5.0); Albumin/Globulin Ratio 1.3 (1.1-1.8); Alkaline Phosphatase 101 U/L (38-126); Anion Gap 8.1 mEq/L (5-15); Aspartate Amino Transferase 28 U/L (14-36); Bilirubin,Total 0.6 mg/dl (0.2-1.3); Blood Urea Nitrogen 11 mg/dl (7-17); Calcium 10.1 mg/dl (8.4-10.2); Carbon Dioxide 31 mmol/L (22.0-30.0); Estimated Glomerular Filt Rate 73 ml/min (>60); GFR (African American) 89 ML/MIN (>60); Globulin 2.7 g/dL (1.3-3.2); Glucose 113 mg/dl (74-100); Total Protein,Serum 6.2 g/dl (6.3-8.2)
== END ==
PROVIDERS: Visit Provider Nurse Practitioner Family
DX: K52.9 Noninfective gastroenteritis and colitis, unspecified (principal)
CPT/HCPCS: 36415; 80053; 85025

== ENCOUNTER → 2022-01-08 13:22 | Outpatient (CLI) | payer MEDICARE, SELFPAY ==
--- NOTE | 2022-01-08 | ECG_ITS ---
APPROVED REPORT Exam: Resting ECG HR:82 bpm ECG Measurements Heart Rate 82 AXES MT 131 P 63 QRSd 91 QRS 40 QT 357 T 9 QTc 395 Conclusion SINUS RHYTHM LOW QRS VOLTAGE IN PRECORDIAL LEADS [QRS DEFLECTION < 1.0 mV IN CHEST LEADS] BORDERLINE ECG UNCONFIRMED REPORT Electronically signed by : Evans Giles MD 01/08/2022 21:16:54
[2022-01-08 14:00] LABS: Basophils # 0.2 K/mm3 (0-0.2); Basophils % 1.7 % (0.1-2.0); Eosinophils % 0.2 % (0.1-12.0); Hematocrit 39.6 % (37.0-47.0); Hemoglobin 12.5 g/dL (12.2-16.2); Lymphocytes # 0.8 K/mm3 (0.7-4.5); Lymphocytes % 6.3 % (10-50); Mean Corpuscular HGB Conc 31.6 g/dL (31.8-35.4); Mean Corpuscular Hemoglobin 28.7 pg (27.0-31.2); Mean Corpuscular Volume 90.8 fl (81-99); Mean Platelet Volume 7.1 fl (7.4-10.4); Monocytes # 0.4 K/mm3 (0.1-1.0); Monocytes % 2.7 % (1.7-9.3); Neutrophils # 11.5 K/mm3 (1.8-7.8); Neutrophils % 89.2 % (37.0-80.0); Platelet Count 553 K/mm3 (142-424); Red Blood Count 4.36 M/mm3 (4.20-5.40); Red Cell Distribution Width 15.5 % (11.5-17.5); White Blood Count 12.9 K/mm3 (4.8-10.8)
[2022-01-08 14:08] LABS: MANUAL DIFFERENTIAL MANUAL DIFFERENTIAL (MANUAL DIFF)
[2022-01-08 14:15] LABS: Anion Gap 10.8 mEq/L (5-15); Blood Urea Nitrogen 18 mg/dl (7-17); Calcium 11.1 mg/dl (8.4-10.2); Carbon Dioxide 31 mmol/L (22.0-30.0); Chloride 101 mmol/L (98-107); Estimated Glomerular Filt Rate 73 ml/min (>60); GFR (African American) 89 ML/MIN (>60); Glucose 115 mg/dl (74-100); Potassium 4.8 mmoL/L (3.5-5.1); Sodium 138 mmol/L (136-145)
[2022-01-08 17:41] LABS: Hypochromasia 2+; Lymphocytes % 9 % (10-50); Monocytes % 2 % (2-9); Neutrophils % 89 % (42-76); Platelet Estimate Normal; Total Cells Counted 100
== END ==
PROVIDERS: PCP Internal Medicine Adolescent Medicine; Visit Provider Colon & Rectal Surgery
DX: K51.20 Ulcerative (chronic) proctitis without complications (principal)
CPT/HCPCS: 36415; 80048; 85007; 85025; 93005

== ENCOUNTER → 2022-11-16 10:58 | Outpatient (POV) | payer MEDICARE, SELFPAY | PROVIDERS: Visit Provider Nurse Practitioner | DX: Z00.00 Encounter for general adult medical examination without abnormal findings (principal) ==

== ENCOUNTER → 2022-11-26 09:57 | Outpatient (CLI) | payer MEDICARE, SELFPAY ==
[2022-11-26 11:12] LABS: Albumin Level 4.2 g/dl (3.5-5.0); Anion Gap 13.1 mEq/L (5-15); Blood Urea Nitrogen 15 mg/dl (7-17); Calcium 9.9 mg/dl (8.4-10.2); Carbon Dioxide 23 mmol/L (22.0-30.0); Chloride 109 mmol/L (98-107); Estimated Glomerular Filt Rate 73 ml/min (>60); GFR (African American) 89 ML/MIN (>60); Glucose 92 mg/dl (74-100); Phosphorous 3.3 mg/dl (2.5-4.5); Potassium 4.1 mmoL/L (3.5-5.1); Sodium 141 mmol/L (136-145)
[2022-11-26 11:21] LABS: Intact Parathyroid Hormone 47.6 pg/mL (7.5-53.5)
[2022-11-27 12:25] LABS: Calcium, Ionized 5.4 mg/dL (4.5-5.6)
[2022-12-06 18:38] LABS: 1,25 Dihydroxy Vitamin D 34 pg/mL (.); 1,25-Dihydroxy, Vitamin D-2 <10 pg/mL (.); 1,25-Dihydroxy, Vitamin D-3 29 pg/mL (.)
== END ==
PROVIDERS: PCP Internal Medicine Adolescent Medicine; Visit Provider Nurse Practitioner
DX: E83.52 Hypercalcemia (principal)
CPT/HCPCS: 36415; 80069; 82330; 82652; 83970

== ENCOUNTER → 2022-11-30 13:03 | Outpatient (POV) | payer MEDICARE, SELFPAY | PROVIDERS: Visit Provider Nurse Practitioner | DX: Z00.00 Encounter for general adult medical examination without abnormal findings (principal) ==

== ENCOUNTER → 2022-12-03 10:59 | Outpatient (CLI) | payer MEDICARE, SELFPAY ==
[2022-12-11 21:23] LABS: PTH Related Peptide < 2.0
== END ==
PROVIDERS: PCP Internal Medicine Adolescent Medicine; Visit Provider Nurse Practitioner
DX: E83.52 Hypercalcemia (principal)
CPT/HCPCS: 82397

== ENCOUNTER 2024-04-26 08:22 | Outpatient (CLI) | payer MEDICARE, SELFPAY ==
--- NOTE | 2024-04-26 08:30 | MM_ITS ---
PROCEDURE INFORMATION: Exam: MG Bilateral Screening 3D Mammography Exam date and time: 04/26/2024 8:39 AM Age: 63 years old Clinical indication: Screening mammogram TECHNIQUE: Imaging protocol: Bilateral Screening tomosynthesis and 2D mammography including computer-aided detection (CAD) when performed. COMPARISON: 1. MG DIG MAMM-SCREEN MADHURI 02/09/2019 10:09 AM 2. MG DMSB DIG MAMM-SCREEN MADHURI 05/26/2016 3:47 PM 3. MG DMSB DIG MAMM-SCREEN MADHURI 03/12/2014 4:50 PM 4. MG DIGMAMMS MAMMOGRAM SCREEN-TECHNOLOGY STRATEGIST N/C 10/08/2006 4:42 PM FINDINGS: MAMMOGRAPHY: Breast composition: There are scattered areas of fibroglandular density. Mass: None. Architectural distortion: No new or suspicious architectural distortion. Calcifications: No new or suspicious calcifications are present Asymmetric density: No new or suspicious asymmetric density is present Skin thickening: None. Axillary adenopathy: None. IMPRESSION: No mammographic evidence of malignancy. Recommend annual screening mammography unless otherwise clinically indicated. ASSESSMENT: BI-RADS category 1: Negative.
--- NOTE | 2024-04-26 08:35 | XR_ITS ---
FINAL REPORT TECHNIQUE: Bone densitometry calculations of the lumbar spine and left hip were obtained. CLINICAL HISTORY: SCR COMPARISON: None FINDINGS: Using L1-4, the bone mineral density of the spine is 1.039 g/cm2, corresponding to T-score of -0.1. Using the left hip, the bone mineral density of the femoral neck is 0.776 g/cm2, corresponding to a T-score of -1.4. NOTE: T-score: Standard deviation compared with peak bone mass of young adult mean. *Following the recommendations of the International Society of Bone densitometry, classification of hip BMD is based on the lower of two T-scores; total hip or femoral neck. IMPRESSION: Diminished bone mineral density of the left hip consistent with osteopenia. Normal bone mineral density of the lumbar spine Reviewed, Interpreted and Dictated by Johann Puga MD Transcribed by Macy Owen Authenticated and [facility]
== END 2024-04-26 23:59 | disposition home or self-care (01) ==
LOC: RAD 08:23
PROVIDERS: PCP Internal Medicine Adolescent Medicine; Visit Provider Internal Medicine Adolescent Medicine
DX: Z12.31 Encounter for screening mammogram for malignant neoplasm of breast (principal); M81.0 Age-related osteoporosis without current pathological fracture; Z00.00 Encounter for general adult medical examination without abnormal findings
CPT/HCPCS: 77063; 77067; 77080

== ENCOUNTER 2024-09-06 15:17 | Outpatient (CLI) | payer MEDICARE, SELFPAY ==
--- NOTE | 2024-09-06 15:20 | CT_ITS ---
FINAL REPORT TECHNIQUE: Thin section axial images were obtained from the lung apices to the upper abdomen by computed tomography. Reformatted images were obtained and reviewed. This study was performed with techniques to keep radiation doses al low as reasonably achievable (ALARA). Individualized dose reduction techniques using automated exposure control or adjustment of mA and/or kV according to the patient's size were employed. CLINICAL HISTORY: SCREENING smoker 30 years 1/2 ppd hx of skin cancer COMPARISON: None FINDINGS: CHEST CT LOW DOSE 63-year-old female, [id number] history, current smoker. CTDI vol (mGy): 2.9 DLP (mGy-cm): 96.38 There is no axillary adenopathy. There is no mediastinal or hilar mass or adenopathy. The heart is normal in size. There is no pericardial or pleural effusion. There is mild emphysema and mild pulmonary scarring. Lung window images demonstrate no suspicious infiltrate or nodule. A few small calcified granulomas are incidentally noted. Limited images of the upper abdomen are unremarkable. IMPRESSION: Lung-RADS category 1. Recommend 12 month follow up low dose chest CT. Reviewed, Interpreted and Dictated by Tom Hall MD Transcribed by Macy Owen Authenticated and [facility]
== END 2024-09-06 23:59 | disposition home or self-care (01) ==
LOC: RAD 15:18
PROVIDERS: PCP Internal Medicine Adolescent Medicine; Visit Provider Internal Medicine Adolescent Medicine
DX: Z87.891 Personal history of nicotine dependence (principal)
CPT/HCPCS: 71271

== ENCOUNTER 2024-12-14 17:21 | Inpatient (IN) | payer MEDICARE, SELFPAY ==
[2024-12-14 17:32] VITALS: BP 129/72; PULSE 92; RESP 13; TEMP 36.9; O2SAT 93; BMI 32.9
--- NOTE | 2024-12-14 17:54 | CT_ITS ---
PROCEDURE INFORMATION: Exam: CT Abdomen And Pelvis With Contrast Exam date and time: 12/14/2024 7:37 PM Age: 64 years old Clinical indication: Abdominal pain; Localized; Right lower quadrant (rlq); Additional info: Rlq pain TECHNIQUE: Imaging protocol: Computed tomography of the abdomen and pelvis with contrast. Radiation optimization: All CT scans at this facility use at least one of these dose optimization techniques: automated exposure control; mA and/or kV adjustment per patient size (includes targeted exams where dose is matched to clinical indication); or iterative reconstruction. Contrast material: ISOVUE; Contrast volume: 75 ml; Contrast route: IV; COMPARISON: CT LUNG SCREENING 09/06/2024 3:27 PM FINDINGS: Lungs: Evidence for calcified lung granuloma in the right chest. Bilateral pulmonary linear interstitial opacities identified within posterior and lower lungs. Coronary arteries: Mild coronary artery calcification. Diaphragm: Questionable hiatal hernia identified. Liver: Liver appears heterogeneous. Possible hepatic parenchymal disease. Consider correlation with liver function tests. Gallbladder and biliary ducts: Unremarkable. No calcified stones. No ductal dilation. Pancreas: Unremarkable. Spleen: Unremarkable. No splenomegaly. Adrenal glands: Right adrenal adenoma is demonstrated measuring 1.8 cm. This was previously hypodense measuring -10 Hounsfield units with noncontrast CT chest imaging dated 09/06/2024. The left adrenal gland appears unremarkable. Kidneys and ureters: Bilateral simple appearing incidental renal cysts are demonstrated. Largest corticomedullary cyst within the posterolateral mid to lower right kidney measures 6 Hounsfield units and 2.6 cm on axial image 51. The visualized kidneys appear otherwise unremarkable. No visualized renal hydronephrosis. No visible renal calculi. Stomach and bowel: Generalized colonic diverticulosis is demonstrated. The bowel appears otherwise unremarkable. Appendix: The appendix appears abnormal, compatible with acute appendicitis. Adjacent edema. No evidence for free air or well defined abscess. Proximal appendix appears normal without distension. The distal appendix is distended measuring up to 10 mm diameter. Wall thickening and enhancement of the distal appendix with minimal adjacent edema. Intraperitoneal space: See Appendix finding. Vasculature: Calcifications in the pelvis, most compatible with phleboliths. Mild atherosclerotic calcification demonstrated within the aorta. Mild atherosclerotic arterial vascular wall calcifications are demonstrated. Lymph nodes: Calcified right hilar and right mediastinal lymph nodes. Urinary bladder: Urinary bladder appears small in size, limiting further assessment. Reproductive: The uterus is not present. Bones/joints: Diffusely decreased bone density. Generalized bony degenerative changes. Soft tissues: Fat containing periumbilical ventral wall hernia is demonstrated. Other findings: Ventral wall postsurgical changes within the pelvis. IMPRESSION: 1. Acute mild distal appendicitis, as described above. Recommend surgical consultation. 2. Pulmonary atelectasis or acute infiltrates within posterior and lower chest bilaterally. 3. Bilateral renal cysts. 4. Benign right adrenal adenoma. 5. Colonic diverticulosis. COMMENTS: Consistent with the [employer]'s Incidental Findings Committee white paper (J Am Marcy Radiol 2018): Any incidental renal lesion less than 1 cm or classified as too small to characterize, or any incidental cystic renal lesion characterized as simple-appearing, is likely benign. No follow-up imaging is recommended for these lesions per consensus recommendations based on imaging criteria.
[2024-12-14 17:57] LABS: Coronavirus 19, PCR Not Detected (NotDetected); Influenza A, PCR Not Detected (NotDetected); Influenza B, PCR Not Detected (NotDetected)
[2024-12-14] MEDS: KETOROLAC 30MG/ML VIAL 15 MG IV (18:27)
[2024-12-14] MEDS: ONDANSETRON 4MG/2ML VIAL 4 MG IV (18:28)
[2024-12-14] MEDS: ACETAMINOPHEN 1,000MG/100ML VIAL 1000 MG IV (18:28)
[2024-12-14] MEDS: LACTATED RINGERS 1000ML 1,000 ML 999 ML IV (18:28)
[2024-12-14 18:31] LABS: Microscopic, Urine URINE MICROSCOPIC (MICROSCOPIC)
[2024-12-14 18:33] LABS: Appearance,Urine CLOUDY (Clear); Blood, Urine 2+ (Negative); Color,Urine YELLOW (Yellow); Glucose,Urine (UA) Negative (Negative); Ketones,Urine Negative (Negative); Leukocyte Esterase,Urine 1+ (Negative); Nitrate,Urine Negative (Negative); PH,Urine 7.5 (5.0-8.5); Protein,Urine 1+ (Negative); Specific Gravity, Urine 1.015 (1.005-1.030)
[2024-12-14 18:33] LABS: Albumin Level 4.5 g/dl (3.5-5.0); Chloride 107 mmol/L (98-107); Sodium 136 mmol/L (136-145)
[2024-12-14 18:36] LABS: Basophils % 0.2 % (0.1-2.0); Eosinophils % 0.3 % (0.1-12.0); Hematocrit 42.2 % (37.0-47.0); Hemoglobin 14.2 g/dL (12.2-16.2); Immature Granulocytes # 0.12 10^3uL; Immature Granulocytes % 0.9 %; Lymphocytes # 0.3 K/mm3 (0.7-4.5); Lymphocytes % 1.8 % (10-50); Mean Corpuscular HGB Conc 33.6 g/dL (31.8-35.4); Mean Corpuscular Hemoglobin 30.3 pg (27.0-31.2); Mean Platelet Volume 9.6 fl (7.4-10.4); Monocytes # 0.7 K/mm3 (0.1-1.0); Monocytes % 4.7 % (1.7-9.3); Neutrophils # 12.9 K/mm3 (1.8-7.8); Neutrophils % 92.1 % (37.0-80.0); Nucleated Red Blood Cells # 0 10^3/uL; Nucleated Red Blood Cells % 0 %; Platelet Count 346 K/mm3 (142-424); Red Blood Count 4.69 M/mm3 (4.20-5.40); Red Cell Distribution Width 13.6 % (11.5-17.5); Red Cell Distribution Width-SD 44.1 fL
[2024-12-14 18:36] LABS: Alanine Aminotransferase 42 U/L (12-78); Albumin/Globulin Ratio 1.6 (1.1-1.8); Alkaline Phosphatase 91 U/L (38-126); Aspartate Amino Transferase 47 U/L (14-36); Blood Urea Nitrogen 14 mg/dl (7-17); Carbon Dioxide 21 mmol/L (22.0-30.0); Creatinine Clearance Estimated 75 mL/min (50-200); Estimated Glomerular Filt Rate 63 ml/min (>60); GFR (African American) 77 ML/MIN (>60); Globulin 2.8 g/dL (1.3-3.2); Glucose 117 mg/dl (74-100); Lipase 51 U/L (23-300); Total Protein,Serum 7.3 g/dl (6.3-8.2)
[2024-12-14 18:45] LABS: Bilirubin,Urine 2+ (Negative)
--- NOTE | 2024-12-14 18:49 | HMH.EDGENADL ---
Discharge Plan Disposition Patient Disposition: Admitted Condition: Good Clinical Impressions Clinical Impression: Acute appendicitis, UTI (urinary tract infection) Discharge ED Provider: Arleen Goodson General Adult HPI General Chief complaint: Fever Stated complaint: vomiting,fever,chills,body aches,headache Time Seen by Provider: 12/14/24 17:44 Mode of Arrival: Ambulatory Source of Information: Patient Description of Symptoms (Recalled from ER Triage Doc. by RN): Pt states she has had chills, nausea, bodyaches. Temp at home was 102.7, took tylenol at 2pm. Pt states she was diagnosed with UTI yesterday History of Present Illness HPI narrative: This patient is a 64-year-old female with a history of hypertension and ulcerative colitis on maintenance medication presented to the emergency department for evaluation with concern for fever, chills, body aches, nausea, and right lower quadrant abdominal pain. Patient notes that she was evaluated yesterday by her PCP for health maintenance and on urinalysis was told she had UTI. She was started on Macrobid, and she is only taken 1 dose before getting much worse today. She took her temp at home and it was 102.7 ?F. She took Tylenol at 2 PM. She denies any chest pain, shortness of breath, cough, congestion, vomiting, changes in bowel movements, or notable urinary symptoms. She does still have her appendix Related Data Home Medications ?Medication ?Instructions ?Recorded ?Confirmed cholecalciferol (vitamin D3) 125 125 mcg PO DAILY Supplement 11/14/21 12/14/24 mcg (5,000 unit) capsule fenofibrate nanocrystallized 145 145 mg PO DAILY . 11/14/21 12/14/24 mg tablet metoprolol succinate 25 mg 25 mg PO DAILY 12/14/24 12/14/24 tablet,extended release 24 hr nitrofurantoin 100 mg PO BID 12/14/24 12/14/24 monohydrate/macrocrystals 100 mg capsule ozanimod 0.92 mg capsule (Zeposia) 0.92 mg PO DAILY 12/14/24 12/14/24 pantoprazole 20 mg tablet,delayed 20 mg PO DAILY 12/14/24 12/14/24 release Allergies Allergy/AdvReac Type Severity Reaction Status Date / Time hydrochlorothiazide Allergy Mild Other Verified 12/14/24 23:32 lisinopril Allergy Mild Facial Verified 11/26/21 13:50 Swelling Penicillins (PENICILLINS) Allergy Mild Hives Verified 12/14/24 23:32 rosuvastatin (From Crestor) AdvReac Mild Headache Verified 12/14/24 23:32 PFSH [facility] Disclaimer: The information contained in this section may have been updated after the patient was seen, as this information can be updated by other users. Social History Smoking Status: Never smoker alcohol intake: never substance use type: denies use current occupational status: retired Travel in the last 8 weeks?: None household members: spouse housing: house caffeine: No Have you lived/traveled outside [place] in past 30 days?: No Contact w/someone who lives/traveled outside US past 30 days?: No Exposure to someone with infectious disease in past 14 days?: No Do you have a fever (greater than 100.4 F or 38 C)?: No Have you tested positive for COVID-19?: No Exposed to someone with COVID-19 in past 14 days?: No Do you have a sore throat?: No Do you have a cough?: No Do you have any weakness?: Yes Do you have any diarrhea?: No Are you experiencing any unusual bleeding?: No Do you have any muscle aches/pain?: No Do you have any abdominal pain?: No Are you experiencing loss of taste or smell?: No Other Medical History Have you received the Flu Vaccine for this season: No Have you received the Pneumonia Vaccine: No ROS Obtained: Yes All systems reviewed & no additional complaints except as documented Physical Exam General General appearance: alert and in no apparent distress Head Head exam: atraumatic and normocephalic Eye Eye exam: Present normal appearance, PERRL and EOMI ENT ENT exam: Present normal exam, normal oropharynx, mucous membranes moist and normal external ear exam Neck Neck exam: Present normal inspection, full ROM and trachea midline; Absent tenderness Chest Chest inspection: Present normal inspection and symmetric chest wall rise; Absent tenderness Respiratory Respiratory exam: Present normal lung sounds bilaterally; Absent respiratory distress, wheezes, stridor or accessory muscle use Cardiovascular Cardiovascular exam: Present regular rate and normal rhythm Abdominal Exam Abdominal exam: Present soft and tenderness (RLQ); Absent distention or guarding Extremities Exam Extremities exam: Present normal inspection, full ROM and normal capillary refill; Absent tenderness or edema Back Exam Back exam: Present normal inspection and full ROM; Absent tenderness Neurological Exam Neurological exam: Present alert, oriented X3, CN II-XII intact and normal gait; Absent motor sensory deficit Psychiatric Psychiatric exam: Present normal affect and normal mood Skin Skin exam: Present warm and dry Medical Decision Making Medical Records Medical records reviewed: Yes I reviewed the patient's medical records. Screening: Per USPSTF and CDC recommendations, given the prevalence of disease in our region, it is our hospital?s policy to screen for HIV and viral Hepatitis for all patients aged 18 and over and those with ongoing risk factors. [place] Inquiry Pt receiving controlled substance: No Vital Signs: 12/14/24 17:32 12/14/24 22:34 12/14/24 22:37 Temperature 98.5 F 98.3 F Temperature Source Temporal Artery Scan Oral Oral Pulse Rate 79 Pulse Rate [Right] 92 H Respiratory Rate 13 16 Blood Pressure 121/78 Blood Pressure [Right Arm] 129/72 Blood Pressure Mean [Right Arm] 91 Blood Pressure Source Blood Pressure Source [Right Arm] Automatic Cuff Blood Pressure Position Blood Pressure Position [Right Arm] Sitting 02 Sat by Pulse Oximetry 93 L Oxygen Delivery Method Room Air 12/14/24 22:39 Temperature 98.5 F Temperature Source Temporal Artery Scan Pulse Rate 72 Pulse Rate [Right] Respiratory Rate 18 Blood Pressure 125/74 Blood Pressure [Right Arm] Blood Pressure Mean [Right Arm] Blood Pressure Source Automatic Cuff Blood Pressure Source [Right Arm] Blood Pressure Position Sitting Blood Pressure Position [Right Arm] 02 Sat by Pulse Oximetry Oxygen Delivery Method Room Air Lab Data Lab results reviewed: Yes I reviewed the patient's lab results. Lab Results 12/14/24 17:36: SARS-CoV-2 (PCR) Not detected, Influenza A Untype (PCR) Not detected, Influenza Type B (PCR) Not detected 12/14/24 17:52: Sodium 136, Potassium 4.0, Chloride 107, Carbon Dioxide 21 L, Anion Gap 12.0, BUN 14, Creatinine 0.90, Estimated Creat Clear 75, Estimated GFR 63, Est GFR ( Amer) 77, Glucose 117 H, Calcium 10.0, Total Bilirubin 2.0 H, AST 47 H, ALT 42, Alkaline Phosphatase 91, Total Protein 7.3, Albumin 4.5, Globulin 2.8, Albumin/Globulin Ratio 1.6, Lipase 51 12/14/24 18:12: WBC 14.0 H, RBC 4.69, Hgb 14.2, Hct 42.2, MCV 90.0, MCH 30.3, MCHC 33.6, RDW 13.6, Plt Count 346, MPV 9.6, Neut % (Auto) 92.1 H, Lymph % (Auto) 1.8 L, [place] % (Auto) 4.7, Eos % (Auto) 0.3, Baso % (Auto) 0.2, Neut # (Auto) 12.9 H, Lymph # (Auto) 0.3 L, [place] # (Auto) 0.7, Eos # (Auto) 0.0, Baso # (Auto) 0.0, Total Counted 100, Neutrophils % (Manual) 95 H, Lymphocytes % (Manual) 4 L, Monocytes % (Manual) 1 L, Platelet Estimate Normal, Stomatocytes 1+ 12/14/24 18:24: Urine Color Yellow, Urine Appearance Cloudy, Urine pH 7.5, Ur Specific [place] 1.015, Urine Protein 1+ A, Urine Glucose (UA) Negative, Urine Ketones Negative, Urine Blood 2+ A, Urine Nitrate Negative, Urine Bilirubin 2+ A, Urine Urobilinogen 1.0, Ur Leukocyte Esterase 1+ A, Urine RBC 20-50, Urine WBC Tntc, Ur Squamous Epith Cells 20-50, Urine Bacteria 2+ 12/14/24 21:50: Lactate 0.9 12/14/24 18:12 12/14/24 17:52 Orders (Tests/Meds): ED MEDICATIONS Generic Name Dose Route Start Last Admin Trade Name Freq PRN Reason Stop Dose Admin Hydromorphone HCl 0.5 mg 12/14/24 23:06 12/14/24 23:24 Hydromorphone 2mg/Ml Syringe IV 01/13/25 23:05 0.5 mg Q3HP PRN Administration Severe Pain (7-10) Levofloxacin/Dextrose 750 mg in 150 mls @ 100 mls/hr 12/14/24 20:30 12/14/24 20:39 Levofloxacin 750mg/150ml Premix IV 12/24/24 20:29 100 mls/hr Q24H TIFFANI Administration Sodium Chloride 1,000 mls @ 100 mls/hr 12/14/24 23:15 12/15/24 01:20 Sod Chlor 0.9% 1000ml Bag IV 01/13/25 23:14 100 mls/hr .Q10H TIFFANI Administration Metronidazole 500 mg in 100 mls @ 100 mls/hr 12/15/24 10:00 Flagyl 500mg/100ml Ivpb IV 12/25/24 09:59 Q12H TIFFANI Ondansetron HCl 4 mg 12/14/24 23:06 Ondansetron 4mg/2ml Vial IV 01/13/25 23:05 Q6HP PRN Nausea Sodium Chloride 10 ml 12/14/24 23:06 Sodium Chloride 0.9% 10ml Flush Syringe IV 01/13/25 23:05 NEEDED PRN Maintain IV Site Discontinued Medications Generic Name Dose Route Start Last Admin Trade Name Freq PRN Reason Stop Dose Admin Acetaminophen 1,000 mg 12/14/24 17:53 12/14/24 18:28 Acetaminophen 1,000mg/100ml Vial IV 12/14/24 17:54 1,000 mg ONCE ONE Administration Lactated Ringer's 1,000 mls @ 999 mls/hr 12/14/24 17:53 12/14/24 18:28 Lactated Ringer's 1000 Ml Bag IV 12/14/24 18:53 999 mls/hr .Q1H1M ONE Administration Lactated Ringer's 1,500 mls @ 750 mls/hr 12/14/24 19:04 Lactated Ringer's 1000 Ml Bag 30 ml/kg infuse over 2 hr (1500 ml) 12/14/24 21:03 IV .Q2H ONE Metronidazole 500 mg in 100 mls @ 100 mls/hr 12/14/24 20:27 12/14/24 20:39 Flagyl 500mg/100ml Ivpb IV 12/14/24 21:26 100 mls/hr ONCE ONE Administration Iopamidol 75 ml 12/14/24 19:37 12/14/24 19:39 Iopamidol-370 (76%);100ml Bottle IV 12/14/24 19:38 75 ml ONCE ONE Administration Ketorolac Tromethamine 15 mg 12/14/24 17:53 12/14/24 18:27 Ketorolac 30mg/Ml Vial IV 12/14/24 17:54 15 mg ONCE ONE Administration Ondansetron HCl 4 mg 12/14/24 17:53 12/14/24 18:28 Ondansetron 4mg/2ml Vial IV 12/14/24 17:54 4 mg ONCE ONE Administration Sodium Chloride 10 ml 12/14/24 19:37 12/14/24 19:39 Sodium Chloride 0.9% 10ml Syr (Rad Only) IV 12/14/24 19:38 10 ml ONCE ONE Administration ORDERS Category Date Time Status CT abdomen pelvis w con Stat Cat Scan 12/14/24 17:54 Completed General Surgery Consult [Consult to General Surgery] [ Cons 12/14/24 20:29 Ordered CONS] Stat CBC w/Auto Diff [Complete Blood Count Auto Diff] Stat Lab 12/14/24 18:12 Completed CMP [Comprehensive Metabolic Panel] Stat Lab 12/14/24 17:52 Completed Lactic Acid Stat Lab 12/14/24 21:50 Completed Lipase Stat Lab 12/14/24 17:52 Completed Rapid PCR Covid and Flu A/B Stat Lab 12/14/24 17:36 Completed UA [Urinalysis and Microscopic] Stat Lab 12/14/24 18:24 Completed Blood Culture Stat Micro 12/14/24 19:25 Received Urine Culture Stat Micro 12/14/24 17:52 Received Medical Decision Narrative: In summary, this patient is a 64-year-old presenting to the Emergency Department for evaluation of right lower quadrant abdominal pain, fevers, nausea, body aches. She was diagnosed with UTI yesterday at PCPs office and started on Macrobid. Differential diagnoses considered include but are not limited to cystitis, pyelonephritis, ureterolithiasis, colitis, appendicitis, sepsis. Ruling out the most morbid conditions drove assessment. It should be noted patient's history includes hypertension, ulcerative colitis which may or may not be at goal therapy. This complicates all aspects of care by increasing patient's risk for morbidity. On exam, the patient is lying in bed in no acute distress and is nontoxic-appearing. She is currently afebrile with reassuring vitals on cardiac telemetry. She has some right lower quadrant tenderness but no rebound, guarding, or rigidity. Workup included CBC, CMP, lipase, lactic acid, urinalysis, urine culture, blood cultures, CT abdomen pelvis with IV contrast. She was given a bolus of IV fluids as well as IV Toradol, acetaminophen, and Zofran for symptomatic improvement. I independently interpreted CT scan prior to the radiologist read and noted concerns for possible appendicitis. Please see their read for final interpretation. Labs were obtained that demonstrated leukocytosis. Her urine is concerning for infection.. Given her fever, leukocytosis, source of infection of concern for possible sepsis, so she was given a sepsis bolus of IV fluids with improved perfusion on reassessment. I started her on IV Levaquin and Flagyl given penicillin allergy and intra-abdominal infection. I had an interactive discussion with Dr. Leon for appendicitis who advised that he is worried about her UC history and recommended talking to her colorectal team who she follows with for management of this. She sees Dr. Beard in [place], so I called and had an interactive discussion with Dr. Baird who is on-call for his group. He advised that he feels it is likely simple acute pending status because her UC has been very well-controlled and she had a recent colonoscopy within the last half of a year that was reassuring with no inflammation or acute issues. He advised that they would be happy to except the patient for transfer to [facility] if we got in for a laparoscopic surgery and things ended up being more complicated. He does not feel this is likely related to UC but is happy to be involved in care if deemed appropriate. I then talked with Dr. Leon again who recommended admission to the hospitalist on IV antibiotics for evaluation in the morning. I had an interactive discussion with the hospitalist who admitted the patient in stable condition. Critical Care Critical Care Time Critical Care Time: No
[2024-12-14 18:59] LABS: MANUAL DIFFERENTIAL MANUAL DIFFERENTIAL (MANUAL DIFF)
[2024-12-14 19:34] LABS: RBC,Urine 20-50 #/hpf (0-3); WBC,Urine TNTC #/hpf (0-3)
[2024-12-14 19:35] LABS: Bacteria,Urine 2+ /lpf; Squamous Epithelial Cell,Urine 20-50 #/hpf (0-5)
[2024-12-14] MEDS: IOPAMIDOL-370 (76%);100ML BOTTLE 75 ML IV (19:39)
[2024-12-14] MEDS: SODIUM CHLORIDE 0.9% 10ML SYR (RAD ONLY) 10 ML IV (19:39)
[2024-12-14 20:31] LABS: Lymphocytes % 4 % (10-50); Monocytes % 1 % (2-9); Neutrophils % 95 % (42-76); Platelet Estimate Normal; Stomatocytes 1+; Total Cells Counted 100
[2024-12-14] MEDS: LEVOFLOXACIN/D5W 750 MG/150 ML 750 MG/150 ML PIGGYBACK 100 MG IV (20:39)
[2024-12-14] MEDS: METRONIDAZ/SOD CHL 500 MG/100 ML PIGGYBACK 100 MG IV (20:39)
--- NOTE | 2024-12-14 20:42 | PC.NURSE ---
patient's colorectal surgeon paged at [phone] Goodson
[2024-12-14 22:09] LABS: Lactic Acid 0.9 mmol/L (0.7-2.1)
--- NOTE | 2024-12-14 22:13 | PC.NURSE ---
care handoff report called to receiving RN
--- NOTE | 2024-12-14 22:33 | PC.NURSE ---
Room assignment changed to 280, care handoff report called.
[2024-12-14 22:37] VITALS: BP 121/78; PULSE 79; RESP 16; TEMP 36.8; O2SAT 93
[2024-12-14 22:39] VITALS: BP 125/74; PULSE 72; RESP 18; TEMP 36.9; O2SAT 98
--- NOTE | 2024-12-14 22:40 | P.HP_ITS ---
<Statement entered by Anoop Robles MD - 12/15/24 09:39> Rounded on patient after nurse practitioner. Personally examined and interviewed patient. Agree with exam findings and care plan as documented. History of Present Illness *Admission Date: 12/14/24 *Reason for visit:: Abdominal pain *History of present illness: This is a 64-year-old female with a past medical history of hypertension and ulcerative colitis on maintenance medication who presents emergency department today with complaints of fever, chills, body aches and nausea. She also reports right lower quadrant pain. States that she was seen by her PCP yesterday for health maintenance and on urinalysis she was told she a UTI. She was started on Macrobid at that time and had only taken 1 dose before she got worse. She took her temp at home and it was 102.7. She denies any chest pain or shortness of breath. Denies any diarrhea. States that her ulcerative colitis has been doing very well since her starting her biologic. She does endorse nausea but denies vomiting. Denies diarrhea. Emergency department workup notable for mild leukocytosis with a white blood cell count of 14, lactic acid of 0.9, urinalysis positive for leuk esterase, too numerous to count white blood cells and +[address] imaging with acute mild distal appendicitis. Dr. Leon was consulted for acute appendicitis. Prior to this ER provider did speak with patient's colorectal surgeon at [facility] who stated that her UC has been very well-controlled with recent colonoscopy showing no signs of inflammation or acute issues. Will be happy to take patient at but also feels that patient can be taken care of locally After confirmation with colorectal surgeon, Dr. Leon supportive of patient's admission here. Will initiate antibiotics IV fluids and narcotic pain medicines overnight and he will see patient in AM. She is admitted to the hospital service at this time. [facility] Disclaimer: The information contained in this section may have been updated after the patient was seen, as this information can be updated by other users. Social History Smoking Status: Never smoker alcohol intake: never substance use type: denies use current occupational status: retired Travel in the last 8 weeks?: None household members: spouse housing: house caffeine: No Have you lived/traveled outside US in past 30 days?: No Contact w/someone who lives/traveled outside US past 30 days?: No Exposure to someone with infectious disease in past 14 days?: No Do you have a fever (greater than 100.4 F or 38 C)?: No Have you tested positive for COVID-19?: No Exposed to someone with COVID-19 in past 14 days?: No Do you have a sore throat?: No Do you have a cough?: No Do you have any weakness?: Yes Do you have any diarrhea?: No Are you experiencing any unusual bleeding?: No Do you have any muscle aches/pain?: No Do you have any abdominal pain?: No Are you experiencing loss of taste or smell?: No Other Medical History Have you received the Flu Vaccine for this season: Yes Have you received the Pneumonia Vaccine: No Review of Systems Review of Systems Review of systems:: pertinent systems reviewed and negative unless documented below Review of systems (narrative): Negative except for HPI Meds Home Medications and Allergies Home Medications ?Medication ?Instructions ?Recorded ?Confirmed ?Type cholecalciferol (vitamin D3) 125 125 mcg PO DAILY Supplement 11/14/21 12/14/24 History mcg (5,000 unit) capsule fenofibrate nanocrystallized 145 145 mg PO DAILY . 11/14/21 12/14/24 History mg tablet metoprolol succinate 25 mg 25 mg PO DAILY 12/14/24 12/14/24 History tablet,extended release 24 hr nitrofurantoin 100 mg PO BID 12/14/24 12/14/24 History monohydrate/macrocrystals 100 mg capsule ozanimod 0.92 mg capsule (Zeposia) 0.92 mg PO DAILY 12/14/24 12/14/24 History pantoprazole 20 mg tablet,delayed 20 mg PO DAILY 12/14/24 12/14/24 History release New Prescriptions to Start Prescriptions: Allergies Allergy/AdvReac Type Severity Reaction Status Date / Time hydrochlorothiazide Allergy Mild Other Verified 12/14/24 23:32 lisinopril Allergy Mild Facial Verified 11/26/21 13:50 Swelling Penicillins (PENICILLINS) Allergy Mild Hives Verified 12/14/24 23:32 rosuvastatin (From Crestor) AdvReac Mild Headache Verified 12/14/24 23:32 Exam Data for Last 24 hours Vital signs and Labs for Last 24 Hours: Temp Pulse Resp BP Pulse Ox O2 Del Method 98.4 F 92 H 18 110/62 94 L Room Air 12/14/24 22:50 12/14/24 22:50 12/14/24 22:50 12/14/24 22:50 12/14/24 23:25 12/14/24 23:25 Laboratory Results - last 24 hr 12/14/24 17:36: SARS-CoV-2 (PCR) Not detected, Influenza A Untype (PCR) Not detected, Influenza Type B (PCR) Not detected 12/14/24 17:52: Sodium 136, Potassium 4.0, Chloride 107, Carbon Dioxide 21 L, Anion Gap 12.0, BUN 14, Creatinine 0.90, Estimated Creat Clear 75, Estimated GFR 63, Est GFR ( Amer) 77, Glucose 117 H, Calcium 10.0, Total Bilirubin 2.0 H, AST 47 H, ALT 42, Alkaline Phosphatase 91, Total Protein 7.3, Albumin 4.5, Globulin 2.8, Albumin/Globulin Ratio 1.6, Lipase 51 12/14/24 18:12: WBC 14.0 H, RBC 4.69, Hgb 14.2, Hct 42.2, MCV 90.0, MCH 30.3, MCHC 33.6, RDW 13.6, Plt Count 346, MPV 9.6, Neut % (Auto) 92.1 H, Lymph % (Auto) 1.8 L, [place] % (Auto) 4.7, Eos % (Auto) 0.3, Baso % (Auto) 0.2, Neut # (Auto) 12.9 H, Lymph # (Auto) 0.3 L, [place] # (Auto) 0.7, Eos # (Auto) 0.0, Baso # (Auto) 0.0, Total Counted 100, Neutrophils % (Manual) 95 H, Lymphocytes % (Manual) 4 L, Monocytes % (Manual) 1 L, Platelet Estimate Normal, Stomatocytes 1+ 12/14/24 18:24: Urine Color Yellow, Urine Appearance Cloudy, Urine pH 7.5, Ur Specific [place] 1.015, Urine Protein 1+ A, Urine Glucose (UA) Negative, Urine Ketones Negative, Urine Blood 2+ A, Urine Nitrate Negative, Urine Bilirubin 2+ A , Urine Urobilinogen 1.0, Ur Leukocyte Esterase 1+ A, Urine RBC 20-50, Urine WBC Tntc, Ur Squamous Epith Cells 20-50, Urine Bacteria 2+ 12/14/24 21:50: Lactate 0.9 I & O for Last 24 hours: Intake & Output 12/12/24 12/13/24 12/14/24 12/15/24 23:59 23:59 23:59 23:59 Weight 81.647 kg Constitutional Constitutional: no acute distress *Routine HEENT Exam Head: Present normocephalic Eye: Present EOMI and PERRL ENT: Present mucous membranes moist *Routine Neck Exam Neck: Present supple; Absent lymphadenopathy *Routine Respiratory Exam Respiratory: Present CTA bilaterally *Routine Cardiovascular Exam Cardiovascular: Present RRR *Routine Abdominal Exam Abdominal: Present soft, normoactive bowel sounds and tenderness (Right lower quadrant) *Routine Rectal Exam Rectal:: deferred *Routine Genitalia Exam Genitalia:: deferred *Routine Extremities Exam Extremities: Absent cyanosis, clubbing or edema *Routine Skin Exam Skin: Present warm; Absent rash *Routine Neurological Exam Neurological: Present alert and oriented X3 Assessment and Plan *Assessment and plan (1) Acute appendicitis: Status: Acute Qualifiers: Acute appendicitis type: other Qualified Code(s): K35.890 - Other acute appendicitis without perforation or gangrene Category: Medical Code(s): K35.80 - Unspecified acute appendicitis (2) Sepsis: Status: Acute Qualifiers: Sepsis acute organ dysfunction status: without acute organ dysfunction Sepsis type: sepsis due to unspecified organism Qualified Code(s): A41.9 - Sepsis, unspecified organism Category: Medical Code(s): A41.9 - Sepsis, unspecified organism (3) UTI (urinary tract infection): Status: Acute Qualifiers: Urinary tract infection type: acute pyelonephritis Qualified Code(s): N10 - Acute pyelonephritis Category: Medical Code(s): N39.0 - Urinary tract infection, site not specified (4) Ulcerative colitis without complications: Status: Acute Category: Medical Code(s): K51.90 - Ulcerative colitis, unspecified, without complications Plan Admit to medicine #Sepsis Meets criteria for fever and leukocytosis with positive appendicitis and positive urinary tract infection Continue Levaquin and Flagyl (penicillin allergy precludes Zosyn usage) Blood cultures obtained prior to antibiotic administration Received 30 mg/kg fluid bolus Lactic acid #Acute appendicitis Continue antibiotics as above. Dr. Leon consulted, will see patient in a.m. Continue IV fluids, pain medications and n.p.o. #Acute cystitis Urinalysis cloudy with TNTC white cells, bacteria and leuk esterase Continue antibiotics as above #Ulcerative colitis Stable, no flares recently per patient #Pain management with parenteral controlled substances multimodal pain medication
--- NOTE | 2024-12-14 22:40 | PC.NURSE ---
Patient arrived to unit via WC from ER with RN and Jak.
[2024-12-14 22:50] VITALS: BP 110/62; PULSE 92; RESP 18; TEMP 36.9; O2SAT 92
--- NOTE | 2024-12-14 22:50 | PC.NURSE ---
[facility] Hospitalist present and assessing pt.
[2024-12-14 22:57] VITALS: O2SAT 92
[2024-12-14] MEDS: HYDROMORPHONE 2MG/ML SYRINGE 0.5 MG IV (23:24)
[2024-12-14 23:25] VITALS: O2SAT 94
[2024-12-15] VITALS (27 sets, daily range): BP systolic 86–126; BP diastolic 47–78; PULSE 73–86; RESP 14–18; TEMP 36.4–38.3; O2SAT 89–97
[2024-12-15] MEDS: 0.9 % SODIUM CHLORIDE 1000ML 1,000 ML 100 ML IV ×3 (01:20→19:58)
--- NOTE | 2024-12-15 01:25 | PC.NURSE ---
Joslyn Hawkins hospitalist aware of pt's temp = 101. orders given for tylenol.
[2024-12-15] MEDS: HYDROMORPHONE 2MG/ML SYRINGE 1 MG IM (01:33)
[2024-12-15] MEDS: ACETAMINOPHEN 1,000MG/100ML VIAL 1000 MG IV (01:39)
[2024-12-15] MEDS: ONDANSETRON 4MG/2ML VIAL 4 MG IV ×2 (01:51→11:19)
--- NOTE | 2024-12-15 02:05 | EXP.SEPSISRE ---
[facility] Tissue Perfusion Eval Sepsis Re-Evaluation Performed: Yes Date Performed: 12/15/24 Time Performed: 02:05
--- NOTE | 2024-12-15 03:06 | PC.NURSE ---
Patient resting comfortably, pain reolved at present. Call light within reach. respirations WNL, Nausea resolved at present
--- NOTE | 2024-12-15 05:00 | PC.NURSE ---
Patient feeling nauseated and zofran not due. call made to [facility], order recieved for Phenergan 12.5mg, see emar for admin info
[2024-12-15] MEDS: PROMETHAZINE HCL 25MG/ML 1ML VIAL 12.5 MG IV ×2 (05:06→19:59)
--- NOTE | 2024-12-15 05:29 | PC.NURSE ---
lab in room with patient for morning labs
--- NOTE | 2024-12-15 05:30 | PC.NURSE ---
patient nausea improving.
--- NOTE | 2024-12-15 05:50 | P.CONS_ITS ---
History of Present Illness *Admission Date: 12/14/24 *Reason for visit:: Abdominal pain, appendicitis *History of present illness: Patient is a 64-year-old female who with history of ulcerative colitis diagnosed 3 years ago. Her colorectal surgeon is Dr. Vicente Beard. She presented to the emergency department in the evening of 12/14/2024 with complaints of fever, chills, aches, nausea, and right lower quadrant pain. She had seen her primary care provider the day before and urinalysis revealed findings consistent with urinary tract infection and she was started on Macrobid. She had a fever to 102.7. Evaluation in the emergency department revealed a mild leukocytosis. Urinalysis revealed positive leukocyte esterase, too numerous to count white blood cells, 2+ bacteria. CT scan was suggestive of acute mild uncomplicated distal appendicitis. Surgery was contacted. 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 Case was discussed and prior colonoscopy history was reviewed. It was felt it may be reasonable to treat this as a mild appendicitis. However, it was suggested if findings consistent with ulcerative colitis exacerbation were noted intraoperatively that patient could be transferred to [facility]. After this discussion with her colorectal surgeon plan was made for admission for management of presumed uncomplicated appendicitis. Patient has never required surgery for her ulcerative colitis as of yet. Her only prior abdominal surgery is on 03/15/2014 she underwent total vaginal hysterectomy by Dr. Wheatley for dysfunctional uterine bleeding. She developed pelvic hematoma for which she underwent transvaginal drainage by Dr. Wheatley with placement of CAHCORRO drain 2 weeks later on 03/29/2014. However, she had developed refractory infected hematoma with pelvic abscess for which Dr. Hill did exploratory laparotomy for surgical washout and drainage. [facility] Disclaimer: The information contained in this section may have been updated after the patient was seen, as this information can be updated by other users. Social History Smoking Status: Never smoker alcohol intake: never substance use type: denies use current occupational status: retired Travel in the last 8 weeks?: None household members: spouse housing: house caffeine: No Have you lived/traveled outside [place] in past 30 days?: No Contact w/someone who lives/traveled outside US past 30 days?: No Exposure to someone with infectious disease in past 14 days?: No Do you have a fever (greater than 100.4 F or 38 C)?: No Have you tested positive for COVID-19?: No Exposed to someone with COVID-19 in past 14 days?: No Do you have a sore throat?: No Do you have a cough?: No Do you have any weakness?: Yes Do you have any diarrhea?: No Are you experiencing any unusual bleeding?: No Do you have any muscle aches/pain?: No Do you have any abdominal pain?: No Are you experiencing loss of taste or smell?: No Meds Home Medications and Allergies Home Medications ?Medication ?Instructions ?Recorded ?Confirmed ?Type cholecalciferol (vitamin D3) 125 125 mcg PO DAILY Supplement 11/14/21 12/14/24 History mcg (5,000 unit) capsule fenofibrate nanocrystallized 145 145 mg PO DAILY . 11/14/21 12/14/24 History mg tablet metoprolol succinate 25 mg 25 mg PO DAILY 12/14/24 12/14/24 History tablet,extended release 24 hr nitrofurantoin 100 mg PO BID 12/14/24 12/14/24 History monohydrate/macrocrystals 100 mg capsule ozanimod 0.92 mg capsule (Zeposia) 0.92 mg PO DAILY 12/14/24 12/14/24 History pantoprazole 20 mg tablet,delayed 20 mg PO DAILY 12/14/24 12/14/24 History release New Prescriptions to Start Prescriptions: Allergies Allergy/AdvReac Type Severity Reaction Status Date / Time hydrochlorothiazide Allergy Mild Other Verified 12/14/24 23:32 lisinopril Allergy Mild Facial Verified 11/26/21 13:50 Swelling Penicillins (PENICILLINS) Allergy Mild Hives Verified 12/14/24 23:32 rosuvastatin (From Crestor) AdvReac Mild Headache Verified 12/14/24 23:32 Exam (Inpt) Vital signs and Labs for Last 24 Hours: Temp Pulse Resp BP Pulse Ox O2 Del Method O2 Flow Rate 98.4 F 77 18 126/72 94 L Room Air 2 12/15/24 05:18 12/15/24 05:18 12/15/24 05:18 12/15/24 05:18 12/15/24 05:24 12/15/24 05:24 12/15/24 04:34 Laboratory Results - last 24 hr 12/14/24 17:36: SARS-CoV-2 (PCR) Not detected, Influenza A Untype (PCR) Not detected, Influenza Type B (PCR) Not detected 12/14/24 17:52: Sodium 136, Potassium 4.0, Chloride 107, Carbon Dioxide 21 L, Anion Gap 12.0, BUN 14, Creatinine 0.90, Estimated Creat Clear 75, Estimated GFR 63, Est GFR ( Amer) 77, Glucose 117 H, Calcium 10.0, Total Bilirubin 2.0 H, AST 47 H, ALT 42, Alkaline Phosphatase 91, Total Protein 7.3, Albumin 4.5, Globulin 2.8, Albumin/Globulin Ratio 1.6, Lipase 51 12/14/24 18:12: WBC 14.0 H, RBC 4.69, Hgb 14.2, Hct 42.2, MCV 90.0, MCH 30.3, MCHC 33.6, RDW 13.6, Plt Count 346, MPV 9.6, Neut % (Auto) 92.1 H, Lymph % (Auto) 1.8 L, [place] % (Auto) 4.7, Eos % (Auto) 0.3, Baso % (Auto) 0.2, Neut # (Auto) 12.9 H, Lymph # (Auto) 0.3 L, [place] # (Auto) 0.7, Eos # (Auto) 0.0, Baso # (Auto) 0.0, Total Counted 100, Neutrophils % (Manual) 95 H, Lymphocytes % (Manual) 4 L, Monocytes % (Manual) 1 L, Platelet Estimate Normal, Stomatocytes 1+ 12/14/24 18:24: Urine Color Yellow, Urine Appearance Cloudy, Urine pH 7.5, Ur Specific [place] 1.015, Urine Protein 1+ A, Urine Glucose (UA) Negative, Urine Ketones Negative, Urine Blood 2+ A, Urine Nitrate Negative, Urine Bilirubin 2+ A , Urine Urobilinogen 1.0, Ur Leukocyte Esterase 1+ A, Urine RBC 20-50, Urine WBC Tntc, Ur Squamous Epith Cells 20-50, Urine Bacteria 2+ 12/14/24 21:50: Lactate 0.9 I & O for Labs for Last 24 Hours: Intake & Output 12/12/24 12/13/24 12/14/24 12/15/24 11:59 11:59 11:59 11:59 Intake Total 510 / 510 Output Total 450 / 450 Balance 60 / 60 Weight 180 lb Constitutional: no acute distress Head: Present normocephalic Respiratory: Present CTA bilaterally Cardiac: Present Reg Rate and Rhythm GI: Present soft Comments:: Mild tenderness in the right pelvis. Rectal (female): Present deferred (female): Present deferred Results Labs 12/15/24 05:26 12/14/24 17:52 Labs: Laboratory Results - last 24 hr 12/14/24 17:36: SARS-CoV-2 (PCR) Not detected, Influenza A Untype (PCR) Not detected, Influenza Type B (PCR) Not detected 12/14/24 17:52: Sodium 136, Potassium 4.0, Chloride 107, Carbon Dioxide 21 L, Anion Gap 12.0, BUN 14, Creatinine 0.90, Estimated Creat Clear 75, Estimated GFR 63, Est GFR ( Amer) 77, Glucose 117 H, Calcium 10.0, Total Bilirubin 2.0 H, AST 47 H, ALT 42, Alkaline Phosphatase 91, Total Protein 7.3, Albumin 4.5, Globulin 2.8, Albumin/Globulin Ratio 1.6, Lipase 51 12/14/24 18:12: WBC 14.0 H, RBC 4.69, Hgb 14.2, Hct 42.2, MCV 90.0, MCH 30.3, MCHC 33.6, RDW 13.6, Plt Count 346, MPV 9.6, Neut % (Auto) 92.1 H, Lymph % (Auto) 1.8 L, [place] % (Auto) 4.7, Eos % (Auto) 0.3, Baso % (Auto) 0.2, Neut # (Auto) 12.9 H, Lymph # (Auto) 0.3 L, [place] # (Auto) 0.7, Eos # (Auto) 0.0, Baso # (Auto) 0.0, Total Counted 100, Neutrophils % (Manual) 95 H, Lymphocytes % (Manual) 4 L, Monocytes % (Manual) 1 L, Platelet Estimate Normal, Stomatocytes 1+ 12/14/24 18:24: Urine Color Yellow, Urine Appearance Cloudy, Urine pH 7.5, Ur Specific [place] 1.015, Urine Protein 1+ A, Urine Glucose (UA) Negative, Urine Ketones Negative, Urine Blood 2+ A, Urine Nitrate Negative, Urine Bilirubin 2+ A , Urine Urobilinogen 1.0, Ur Leukocyte Esterase 1+ A, Urine RBC 20-50, Urine WBC Tntc, Ur Squamous Epith Cells 20-50, Urine Bacteria 2+ 12/14/24 21:50: Lactate 0.9 Assessment and Plan *Assessment and plan (1) Acute appendicitis: Status: Acute Qualifiers: Acute appendicitis type: other Qualified Code(s): K35.890 - Other acute appendicitis without perforation or gangrene Category: Medical Code(s): K35.80 - Unspecified acute appendicitis Plan Plan to proceed with laparoscopic possibly open appendectomy. Nature and details of the proposed procedure along with associated risks and expected outcome were explained to the patient. She understands and agrees to proceed.
[2024-12-15 06:25] LABS: Basophils % 0.1 % (0.1-2.0); Eosinophils # 0.2 Kmm3 (0.0-0.4); Eosinophils % 1.6 % (0.1-12.0); Hematocrit 39.2 % (37.0-47.0); Immature Granulocytes # 0.13 10^3uL; Immature Granulocytes % 0.9 %; Lymphocytes # 0.4 K/mm3 (0.7-4.5); Mean Corpuscular HGB Conc 31.9 g/dL (31.8-35.4); Mean Corpuscular Hemoglobin 29.4 pg (27.0-31.2); Mean Corpuscular Volume 92.2 fl (81-99); Mean Platelet Volume 9.9 fl (7.4-10.4); Monocytes # 0.9 K/mm3 (0.1-1.0); Monocytes % 6.4 % (1.7-9.3); Neutrophils # 12.1 K/mm3 (1.8-7.8); Nucleated Red Blood Cells # 0 10^3/uL; Nucleated Red Blood Cells % 0 %; Platelet Count 303 K/mm3 (142-424); Red Blood Count 4.25 M/mm3 (4.20-5.40); Red Cell Distribution Width 13.9 % (11.5-17.5); Red Cell Distribution Width-SD 47.1 fL; White Blood Count 13.8 K/mm3 (4.8-10.8)
[2024-12-15 06:28] LABS: MANUAL DIFFERENTIAL MANUAL DIFFERENTIAL (MANUAL DIFF)
[2024-12-15 06:34] LABS: Blood Urea Nitrogen 15 mg/dl (7-17); Calcium 9.5 mg/dl (8.4-10.2); Carbon Dioxide 21 mmol/L (22.0-30.0); Chloride 108 mmol/L (98-107); Creatinine Clearance Estimated 75 mL/min (50-200); Estimated Glomerular Filt Rate 63 ml/min (>60); GFR (African American) 77 ML/MIN (>60); Glucose 125 mg/dl (74-100); Magnesium 1.9 mg/dl (1.6-2.3); Phosphorous 2.3 mg/dl (2.5-4.5); Sodium 138 mmol/L (136-145)
--- NOTE | 2024-12-15 07:01 | PC.NURSE ---
report given to Morales Constantino RN
--- NOTE | 2024-12-15 07:03 | PC.NURSE ---
Patient to OR.
--- NOTE | 2024-12-15 07:18 | P.PNANES_ITS ---
[facility] Disclaimer: The information contained in this section may have been updated after the patient was seen, as this information can be updated by other users. Social History Smoking Status: Never smoker alcohol intake: never substance use type: denies use current occupational status: retired Travel in the last 8 weeks?: None household members: spouse housing: house caffeine: No Have you lived/traveled outside [place] in past 30 days?: No Contact w/someone who lives/traveled outside US past 30 days?: No Exposure to someone with infectious disease in past 14 days?: No Do you have a fever (greater than 100.4 F or 38 C)?: No Have you tested positive for COVID-19?: No Exposed to someone with COVID-19 in past 14 days?: No Do you have a sore throat?: No Do you have a cough?: No Do you have any weakness?: Yes Do you have any diarrhea?: No Are you experiencing any unusual bleeding?: No Do you have any muscle aches/pain?: No Do you have any abdominal pain?: No Are you experiencing loss of taste or smell?: No [facility] Anesthesia Checklist Patient Identification Patient Identification: Arm Band Structural Data Admitted From: Inpatient Planned Operative Procedure/s: Laparoscopic Appendectomy Consent for Planned Operative Procedure(s) Verified: Yes Verified Documents: Surgical Consent and History and Physical NPO Status Verified Time NPO: 00:00 Additional verifications Anesthesia Reactions: No Hx Blood Transfusions: No Blood Transfusion Reaction: No Airway Assessment Mallampati Score:: Class II C-Spine Mobility Assessed: Yes TMJ Mobility Assessed: Yes Dentition: Good Dentition (upper partial removed) Neurological Assessment Level of Consciousness: Awake, Alert and Appropriate Anesthesia Plan Anesthesia Risk discussed: Yes Anesthesia Plan: Verified ASA Class: II Anesthesia Type: General
[2024-12-15] MEDS: AZTREONAM 2 GM in 0.9 % SODIUM CHLORIDE 100 ML IV (07:30)
[2024-12-15 08:00] LABS: Lymphocytes % 6 % (10-50); Monocytes % 2 % (2-9); Neutrophils % 92 % (42-76); Platelet Estimate Normal; RBC Morphology Normal; Total Cells Counted 100
[2024-12-15 08:04] LABS: Hemoglobin 12.5 g/dL (12.2-16.2)
[2024-12-15] MEDS: LIDOCAINE 1% 20ML MDV 20 ML (08:48)
[2024-12-15] MEDS: ROPIVACAINE 0.5% 30ML VIAL 150 MG (08:48)
--- NOTE | 2024-12-15 08:49 | SUR.OPER ---
0805- VO given by Dr Leon to call family and have consent updated for possible bowel resection. VO repeated and correct. Called the number on the chart (alysha Mendoza) to explain the need for updated consent and for the husbands phone number to get consent from. Husbands phone number is [phone]. Ilir Jacobs () called at this time to go over what needed to be added to the consent. He verbalized understanding and gave consent over the phone. Janet Fraser RN witnessed verbal consent over the phone along with this RN. Consent updated and placed in chart.
--- NOTE | 2024-12-15 09:18 | [facility].PHAINT1 ---
Pharmacy Intervention Comments: MEDICATION RECONCILIATION COMPLETED ON PATIENT USING EXTERNAL FILL HISTORY FROM PHARMACY. -JUDY YEPEZ, LYDIAD
--- NOTE | 2024-12-15 10:02 | EXP.OP.NOTE ---
Date of procedure: 12/15/24 Pre-op Diagnosis:: Appendicitis Post-op Diagnosis:: Same Procedure performed:: Diagnostic laparoscopy Laparoscopic appendectomy Laparotomy, small bowel resection Surgeon:: Tuan Leon MD Anesthesia: GETBon Estimated blood loss (mL): 30 Clinical Note:: Patient is a 64-year-old female who with history of ulcerative colitis diagnosed 3 years ago. Her colorectal surgeon is Dr. Vicente Beard. She presented to the emergency department in the evening of 12/14/2024 with complaints of fever, chills, aches, nausea, and right lower quadrant pain. She had seen her primary care provider the day before and urinalysis revealed findings consistent with urinary tract infection and she was started on Macrobid. She had a fever to 102.7. Evaluation in the emergency department revealed a mild leukocytosis. Urinalysis revealed positive leukocyte esterase, too numerous to count white blood cells, 2+ bacteria. CT scan was suggestive of acute mild uncomplicated distal appendicitis. Surgery was contacted. Suggestion was made to discuss the case with her colorectal surgeon utilization management manager. Case was discussed and prior colonoscopy history was reviewed. It was felt it may be reasonable to treat this as a mild appendicitis. However, it was suggested if findings consistent with ulcerative colitis exacerbation were noted intraoperatively that patient could be transferred to [facility]. After this discussion with her colorectal surgeon plan was made for admission for management of presumed uncomplicated appendicitis. Patient has never required surgery for her ulcerative colitis as of yet. Her only prior abdominal surgery is on 03/15/2014 she underwent total vaginal hysterectomy by Dr. Wheatley for dysfunctional uterine bleeding. She developed pelvic hematoma for which she underwent transvaginal drainage by Dr. Wheatley with placement of CACHORRO drain 2 weeks later on 03/29/2014. However, she had developed refractory infected hematoma with pelvic abscess for which Dr. Hill did exploratory laparotomy for surgical washout and drainage at which time she had small bowel serosal tears repaired. . Operative findings:: She had adhesions in the periumbilical location and right abdomen. There were densely adherent loops of bowel in the right lower quadrant with no clearly definable plane between the bowel serosa and peritoneum. This ultimately required segmental small bowel resection. Appendix was somewhat edematous and mildly indurated consistent with mild noncomplicated early appendicitis. . Operative note:: Consent was obtained and patient was taken to the operating room. She was given preoperative intravenous antibiotics. In the operating room she was placed in a supine position. General anesthesia was induced. Indwelling urinary catheter was placed. Abdomen was prepped and draped in the standard surgical fashion. Due to her previous low midline laparotomy 5 mm trocar was inserted in the left subcostal area under laparoscopic visualization. CO2 pneumoperitoneum was achieved to 15 mmHg. Laparoscopic surveillance was carried out. She was noted to have some omental adhesions in the mid abdomen from prior surgery. 5 mm trocar was inserted in the right upper abdomen. Adhesions were taken down using a's ultrasonic harmonic dakota. However there is noted to be densely adherent loop of small bowel in the right lateral abdomen. This obscured visualization of the right lower quadrant and thus the appendix. Ultimately a 12 mm subumbilical incision was made in her previous laparotomy scar. Attempt was made to take down the small bowel adhesions from the anterior abdominal wall. There was no discernible plane between the abdominal wall and the adhesions. Meticulous dissection was carried down and appeared as though there were some unavoidable serosal tears. There was no full-thickness enterotomy however. Decision was made to proceed with possible laparoscopic appendectomy. Ultimately she required an additional 5 mm trocar in the right lower quadrant for retraction. Cecum was identified. Visualization of the appendix was somewhat difficult. Ultimately the appendix was identified and found to be essentially retrocecal. Lateral peritoneal attachments were incised lateral to the cecum mobilizing the cecum somewhat and ultimately freeing the appendix such that its tip could be delivered anteriorly. Remaining attachments were incised with laparoscopic Metzenbaum dissection freeing the appendix on the its mesoappendix. Cecum appeared normal. Mesoappendix was carefully divided with a's ultrasonic harmonic dakota with dissection carried down to the base of the appendix which was uninflamed. The appendix was divided at its base with an endoscopic REYNA linear cutting stapling device. Staple line was inspected for hemostasis and integrity which was assured. Limited irrigation was performed. There appeared to be good hemostasis. The previously mentioned loop of small bowel was grasped with an endoscopic Keith. Some omental adhesions to this were incised to allow for delivery of the small bowel through midline incision. 12 mm trocar was removed and mini laparotomy incision was made inferior to the umbilicus. Subcutaneous tissues were incised. Fascia was incised. Retractors were placed. Loop of small bowel was brought through the incision. It was inspected. There were several serosal tears. It was noted that this was previous loop of bowel which had been repaired during her laparotomy in 2014 as there were visible sutures in the subserosa. It was felt that this would not be amenable to safe repair but plan was made to proceed with a segmental resection. The short segment of bowel was divided proximal and distal to the serosal tears with REYNA linear cutting stapling device. Mesentery was scored. Small bowel mesentery was divided with the Enseal device. Small bowel sent off as specimen. [id number] anastomosis was created with REYNA 75 linear cutting stapling device. The common enterotomy was closed with a TX 60B stapling device. A couple of 3-0 Surgilon seromuscular sutures were placed at the staple line angle. Radiant of staple lines at the anastomosis was closed with 3-0 Surgilon seromuscular sutures. Several additional seromuscular sutures were used to invert and oversew the staple line. The small mesenteric defect was closed with a running 2-0 Vicryl. Anastomosis was patent and hemostatic. Small bowel was returned to the peritoneal cavity. Retractors were removed. Peritoneum was closed with running 0 Vicryl. Fascia was closed with running #1 PDS. At this time completion laparoscopy was performed. There appeared to be good hemostasis. She had somewhat of a fatty liver and visualization of the stomach was difficult. However it was decompressed after anesthesia had placed nasogastric tube. Therefore trocars were removed the CO2 pneumoperitoneum was evacuated. Skin incisions and all incisions including the mini laparotomy incision were closed with skin jesse. Clean dry sterile dressings were applied. . Condition: stable Disposition: PACU Complications:: None immediately apparent
--- NOTE | 2024-12-15 10:13 | XR_ITS ---
FINAL REPORT CLINICAL HISTORY: NG placement FINDINGS: A portable view of the chest is obtained. No prior exam for comparison. NG tube is present with the tip in the stomach. The heart is normal in size. The lung volumes are low. Bibasilar opacities left greater than right, probable atelectasis versus pneumonia. There is likely a small pleural effusion. No pneumothorax. IMPRESSION: Left greater than right atelectasis versus pneumonia with likely small pleural effusion Reviewed, Interpreted and Dictated by Eileen Martínez MD Transcribed by Tahira Lyle Authenticated and [facility]
--- NOTE | 2024-12-15 10:13 | EXP.ANES.I ---
[facility] Anesthesia Record Part I Anesthesia Record I Intake, IV Amount: 2,000 Hydration: Adequate Estimated blood loss (mL): 10 Urine output (mL): 100 Blood Pressure: 96/48 SaO2: 94 Pulse Rate: 81 Airway Patency: Patent Respiratory Rate: 18 Temperature: 98 F Patient is:: Awake Stable to PACU at:: 10:20
[2024-12-15] MEDS: KETOROLAC 30MG/ML VIAL 30 MG IV (10:36)
--- NOTE | 2024-12-15 10:49 | PC.NURSE ---
Patient on unit from OR.
--- NOTE | 2024-12-15 11:05 | EXP.ANES.II ---
[facility] Anesthesia Record Part II Anesthesia Record Part II Discharge Time: 10:40 Destination: Medical Surgical Department PACU nurse assessment reviewed?: Yes Patient Condition:: Good Anesthesia Complications:: None Swallowing reflex intact?: Yes Airway Patency: Patent Cyanosis?: No Blood Pressure: 116/72 SaO2: 95 Respiratory Rate: 18 Pulse Rate: 77 Temperature: 98 F Mental Status: Alert & Oriented Pain level:: 0 Nausea and/or vomitting:: None Intake, IV Amount: 0 Hydration: Adequate
[2024-12-15] MEDS: HYDROMORPHONE 2MG/ML SYRINGE 0.5 MG IV (11:14)
[2024-12-15] MEDS: METRONIDAZ/SOD CHL 500 MG/100 ML PIGGYBACK 100 MG IV ×2 (11:21→22:37)
--- NOTE | 2024-12-15 11:28 | SUR.PHASEI ---
Report called to MARY Fajardo per MARY Deshpande. Patient vital signs stable. Slight abdominal pain reported as tenderness on incision site. 30mg toradol given IV. Patient resting with eyes closed and transported to OB.
[2024-12-15] MEDS: HYDROMORPHONE 2MG/ML SYRINGE 1 MG IV ×2 (11:52→20:04)
[2024-12-15 15:01] LABS: Microscopic,Cath URINE MICROSCOPIC (MICROSCOPIC)
[2024-12-15 15:02] LABS: Appearance,Urine/Cath CLEAR (Clear); Blood, Urine/Cath 2+ (Negative); Color,Urine/Cath YELLOW (Yellow); Glucose,Urine/Cath (UA) Negative (Negative); Ketones,Urine/Cath Negative (Negative); Leukocyte Esterase,Cath Negative (Negative); Nitrate,Cath Negative (Negative); PH,Urine/Cath 5.5 (5.0-8.5); Protein,Urine/Cath 1+ (Negative); Specific Gravity, Urine/Cath >= 1.030 (1.005-1.030)
[2024-12-15 15:09] LABS: Bilirubin,Cath 1+ (Negative)
[2024-12-15 15:30] LABS: Bacteria,Urine/Cath 1+ /lpf; Squamous Epithelial Ur./Cath Occasional #/hpf (0-5); WBC,Urine/Cath 20-50 #/hpf (0-3)
[2024-12-15 15:31] LABS: Hyaline Casts,Urine/Cath OCC #/lpf (0)
--- NOTE | 2024-12-15 16:53 | PC.NURSE ---
Patient is alert and oriented. Bowel sounds remain hypoactive. Lung sound are clear but diminished in bases. Surgical sites are clean, dry and intact with gauze and tegaderm. No drainage noted on dressings. Hernandez catheter is draining dark yellow, cloudy urine by gravity at bedside. SCUDS in place. NG tube to right nare hooked to continuous low wall suction.
--- NOTE | 2024-12-15 19:30 | PC.NURSE ---
Pt talking on Phone requesting nausea and pain meds with assessment, RN to review careplans and MAR. Call light within reach of patient
[2024-12-15] MEDS: LEVOFLOXACIN/D5W 750 MG/150 ML 750 MG/150 ML PIGGYBACK 100 MG IV (19:57)
[2024-12-15] MEDS: PANTOPRAZOLE 40MG VIAL 40 MG IV (19:59)
[2024-12-15] MEDS: SODIUM CHLORIDE 0.9% 25ML BAG 25 ML IV (20:00)
--- NOTE | 2024-12-15 21:30 | PC.NURSE ---
Patient laying on left side, reports she is able to pass gas and pain in improved. Patient is going to attempt to sleep. call light within reach
[2024-12-15] MEDS: diphenhydrAMINE 50MG/ML VIAL 25 MG IV (22:32)
--- NOTE | 2024-12-15 22:52 | P.PN_ITS ---
Subjective *Date: 12/15/24 *Time: 22:52 Interval history: Taken for surgery this morning. Returned with NG due to partial resection of small bowel. Blood pressure soft with MAP greater than 60. Afebrile. Pain stable with hydromorphone. Afebrile. Medical Exam Vital signs and Labs for Last 24 Hours: Vital Signs Temp Pulse Pulse Resp BP BP Pulse Ox 12/15/24 22:30 12/15/24 20:00 98.3 F 86 17 119/64 93 L 12/15/24 17:28 98.0 F 85 16 103/55 L 93 L 12/15/24 17:28 12/15/24 16:38 97.9 F 80 16 95/55 L 94 L 12/15/24 15:49 12/15/24 15:38 98.2 F 85 15 96/47 L 94 L 12/15/24 14:32 98.0 F 73 15 88/47 L 95 12/15/24 13:38 98.7 F 85 15 86/53 L 95 12/15/24 13:12 12/15/24 13:08 97.9 F 83 15 101/67 L 94 L 12/15/24 12:38 97.9 F 81 16 107/63 L 90 L 12/15/24 12:08 97.9 F 79 15 114/72 94 L 12/15/24 11:38 81 15 109/72 L 94 L 12/15/24 11:23 97.9 F 78 15 114/66 95 12/15/24 11:14 95 12/15/24 11:08 82 14 115/72 96 12/15/24 11:06 18 12/15/24 11:00 12/15/24 10:53 97.6 F 80 14 107/70 L 89 L 12/15/24 10:40 98.0 F 77 18 116/72 95 12/15/24 10:30 98.0 F 75 18 110/72 97 12/15/24 10:20 98.0 F 76 18 105/53 L 96 12/15/24 10:15 98 F 81 18 96/48 L 12/15/24 10:10 98.0 F 81 18 96/48 L 93 L 12/15/24 06:55 98.0 F 78 18 126/72 94 L 12/15/24 06:44 12/15/24 05:30 12/15/24 05:24 94 L 12/15/24 05:18 98.4 F 77 18 126/72 92 L 12/15/24 04:34 12/15/24 03:04 12/15/24 02:30 12/15/24 02:00 99.0 F 18 96 12/15/24 01:20 12/15/24 01:20 101.0 F H 79 16 94 L 12/14/24 23:25 94 L 12/14/24 22:57 92 L O2 Del Method O2 Flow Rate 12/15/24 22:30 Room Air 12/15/24 20:00 Room Air 12/15/24 17:28 Nasal Cannula 2 12/15/24 17:28 Nasal Cannula 2 12/15/24 16:38 Nasal Cannula 2 12/15/24 15:49 Nasal Cannula 2 12/15/24 15:38 Nasal Cannula 2 12/15/24 14:32 Nasal Cannula 2 12/15/24 13:38 Nasal Cannula 2 12/15/24 13:12 Nasal Cannula 2 12/15/24 13:08 Nasal Cannula 2 12/15/24 12:38 Nasal Cannula 2 12/15/24 12:08 Nasal Cannula 2 12/15/24 11:38 Nasal Cannula 2 12/15/24 11:23 Nasal Cannula 2 12/15/24 11:14 Nasal Cannula 2 12/15/24 11:08 Nasal Cannula 2 12/15/24 11:06 12/15/24 11:00 Nasal Cannula 2 12/15/24 10:53 Nasal Cannula 2 12/15/24 10:40 Room Air 12/15/24 10:30 Simple Mask 5 12/15/24 10:20 Simple Mask 10 12/15/24 10:15 12/15/24 10:10 Simple Mask 15 12/15/24 06:55 12/15/24 06:44 Room Air 12/15/24 05:30 Room Air 12/15/24 05:24 Room Air 12/15/24 05:18 Room Air 12/15/24 04:34 Nasal Cannula 2 12/15/24 03:04 Nasal Cannula 2 12/15/24 02:30 Nasal Cannula 2 12/15/24 02:00 Nasal Cannula 2 12/15/24 01:20 Nasal Cannula 2 12/15/24 01:20 Nasal Cannula 2 12/14/24 23:25 Room Air 12/14/24 22:57 Room Air Intake and Output 12/15/24 12/15/24 12/15/24 07:59 15:59 23:59 Intake Total 510 / 2510 1999 Output Total 450 / 450 Balance 2059 Intake: Intake, Total IV Amount 510 / 2510 1999 0.9 % Sodium Chloride 1000ML 1, 510 / 510 000 ml @ 100 mls/hr IV .Q10H [facility] Rx#:[id number] Output: Output, Urine Amount 450 / 450 Other: Number of Unmeasured Voids 1 Laboratory Results - last 24 hr 12/15/24 05:26: WBC 13.8 H, RBC 4.25, Hgb 12.5 D, Hct 39.2, MCV 92.2, MCH 29.4, MCHC 31.9, RDW 13.9, Plt Count 303, MPV 9.9, Neut % (Auto) 88.0 H, Lymph % (Auto) 3.0 L, [place] % (Auto) 6.4, Eos % (Auto) 1.6, Baso % (Auto) 0.1, Neut # (Auto) 12.1 H, Lymph # (Auto) 0.4 L, [place] # (Auto) 0.9, Eos # (Auto) 0.2, Baso # (Auto) 0.0, Total Counted 100, Neutrophils % (Manual) 92 H, Lymphocytes % (Manual) 6 L, Monocytes % (Manual) 2, Platelet Estimate Normal, RBC Morphology Normal, Sodium 138, Potassium 4.0, Chloride 108 H, Carbon Dioxide 21 L, Anion Gap 13.0, BUN 15, Creatinine 0.90, Estimated Creat Clear 75, Estimated GFR 63, Est GFR ( Amer) 77, Glucose 125 H, Calcium 9.5, Phosphorus 2.3 L, Magnesium 1.9 12/15/24 07:25: Urine Color Yellow, Urine Appearance Clear, Urine pH 5.5, Ur Specific [place] >= 1.030, Urine Protein 1+, Urine Glucose (UA) Negative, Urine Ketones Negative, Urine Blood 2+, Urine Nitrate Negative, Urine Bilirubin 1+ A, Urine Urobilinogen 1.0, Ur Leukocyte Esterase Negative, Urine RBC 3-5, Urine WBC 20-50 A, Ur Squamous Epith Cells Occasional, Urine Bacteria 1+, Hyaline Casts Occ I & O for Labs for Last 24 Hours: Intake & Output 12/12/24 12/13/24 12/14/24 12/15/24 23:59 23:59 23:59 23:59 Intake Total 2510 / 2510 Output Total 450 / 450 Balance 2059 / 2059 Weight 81.647 kg Microbiology Reports for the Last 24 Hours: Microbiology 12/14/24 19:25 Blood Blood Culture - Preliminary NO GROWTH AFTER 24 HOURS 12/14/24 18:19 Blood Blood Culture - Preliminary NO GROWTH AFTER 24 HOURS Constitutional: Present mild distress, obese and cooperative Head: Present atraumatic and normocephalic ENT: Present normal exam Comment:: NG in right nare with clear output Respiratory: Present normal respiratory effort; Absent rhonchi, wheezes or crackles Cardiac: Present Reg Rate and Rhythm GI: Present soft, tenderness (Worsen right lower abdomen) and diminished bowel sounds; Absent distention Extremities: Present normal inspection and full ROM Skin: Present intact; Absent erythema Neuro: Present Grossly Intact, alert, awake, oriented x 3 and moves all extremities Assessment and Plan *Assessment and plan (1) Acute appendicitis: Status: Acute Qualifiers: Acute appendicitis type: other Qualified Code(s): K35.890 - Other acute appendicitis without perforation or gangrene Category: Medical Code(s): K35.80 - Unspecified acute appendicitis (2) Sepsis: Status: Acute Qualifiers: Sepsis type: sepsis due to unspecified organism Sepsis acute organ dysfunction status: without acute organ dysfunction Qualified Code(s): A41.9 - Sepsis, unspecified organism Category: Medical Code(s): A41.9 - Sepsis, unspecified organism (3) UTI (urinary tract infection): Status: Acute Qualifiers: Urinary tract infection type: acute pyelonephritis Qualified Code(s): N10 - Acute pyelonephritis Category: Medical Code(s): N39.0 - Urinary tract infection, site not specified (4) Ulcerative colitis without complications: Status: Acute Category: Medical Code(s): K51.90 - Ulcerative colitis, unspecified, without complications Plan Status post appendectomy. Prolonged surgery necessitating partial removal of small bowel due to adhesions and significance of appendicitis. NG in place. Continues to require inpatient management. N.p.o. at this time pending improvement/resumption of bowel function. Problems addressed as follows: #Sepsis Appendicitis Meets criteria for fever and leukocytosis with positive appendicitis and positive urinary tract infection Continue Levaquin and Flagyl (penicillin allergy precludes Zosyn usage) Blood cultures obtained prior to antibiotic administration Continue maintenance fluids with NS at 100 cc an hour #Acute appendicitis Discussed case with surgery, procedure complex due to adhesions. Removed a few inches of small bowel as well as appendix. Patient tolerated procedure well. Bowel rest with NG in place. N.p.o. pending resumption of bowel function. Continue IV antibiotics and IV pain medication. Monitor for toxicity with hydromorphone IV. #Acute cystitis Urinalysis cloudy with TNTC white cells, bacteria and leuk esterase Continue antibiotics as above Urine culture pending #Ulcerative colitis Stable, no flares recently per patient #Pain management with parenteral controlled substances multimodal pain medication White count 13.8. Kidney function normal with BUN 15, creatinine 0.9. Potassium 4.8 with magnesium 1.9. Repeat CBC, CMP, magnesium ordered for the morning. Full code N.p.o.
--- NOTE | 2024-12-15 23:15 | PC.NURSE ---
pt resting with eyes closed. no distress noted. call light within reach
--- NOTE | 2024-12-16 01:10 | PC.NURSE ---
patient wakes to nurse doing hourly round, requests pain medication at this time. See Mar. Call light within reach
[2024-12-16] MEDS: HYDROMORPHONE 2MG/ML SYRINGE 1 MG IV ×4 (01:12→22:27)
--- NOTE | 2024-12-16 03:25 | PC.NURSE ---
patient sleeping, respirations WNL. Call light within reach
[2024-12-16 04:15] VITALS: BP 114/64; PULSE 75; RESP 17; TEMP 36.9; O2SAT 94
--- NOTE | 2024-12-16 04:15 | PC.NURSE ---
Patient slept at interval, RN assisting patient with use of flutter valve and incentive spiromneter. Rn encouraged patient to use pillow against abbdomen for coughing and deep breathing, Patient demonstrated understanding. Patient A/OX4, BS present X4 quads, Vitals WNL. Patient remains NPO. NG at wall suction with small amount of light brown fluid noted in cannister. Dressings remain intact without drainage. Lungs clear X4. No distress noted. Call light within reach
[2024-12-16 04:20] VITALS: BMI 34.0
--- NOTE | 2024-12-16 05:16 | PC.NURSE ---
Patient sleeping at this time. No signs of discomfort or distress. call light within reach
[2024-12-16 07:31] LABS: Basophils % 0.1 % (0.1-2.0); Eosinophils # 0.2 Kmm3 (0.0-0.4); Eosinophils % 1.7 % (0.1-12.0); Hematocrit 30.6 % (37.0-47.0); Hemoglobin 10.1 g/dL (12.2-16.2); Immature Granulocytes % 1.2 %; Lymphocytes # 0.3 K/mm3 (0.7-4.5); Mean Corpuscular Hemoglobin 30.5 pg (27.0-31.2); Mean Corpuscular Volume 92.4 fl (81-99); Mean Platelet Volume 9.8 fl (7.4-10.4); Monocytes # 0.7 K/mm3 (0.1-1.0); Neutrophils # 7.5 K/mm3 (1.8-7.8); Nucleated Red Blood Cells # 0 10^3/uL; Nucleated Red Blood Cells % 0 %; Platelet Count 268 K/mm3 (142-424); Red Blood Count 3.31 M/mm3 (4.20-5.40); Red Cell Distribution Width 13.7 % (11.5-17.5); Red Cell Distribution Width-SD 46.4 fL; White Blood Count 8.7 K/mm3 (4.8-10.8)
[2024-12-16 07:35] LABS: MANUAL DIFFERENTIAL MANUAL DIFFERENTIAL (MANUAL DIFF)
[2024-12-16 07:49] LABS: Chloride 113 mmol/L (98-107)
[2024-12-16 07:50] LABS: Albumin Level 2.9 g/dl (3.5-5.0); Potassium 3.8 mmoL/L (3.5-5.1); Sodium 139 mmol/L (136-145)
[2024-12-16 07:52] LABS: Blood Urea Nitrogen 17 mg/dl (7-17); Creatinine Clearance Estimated 77 mL/min (50-200); Estimated Glomerular Filt Rate 73 ml/min (>60); GFR (African American) 88 ML/MIN (>60)
[2024-12-16 07:53] LABS: Alanine Aminotransferase 21 U/L (12-78); Albumin/Globulin Ratio 1.2 (1.1-1.8); Alkaline Phosphatase 60 U/L (38-126); Anion Gap 7.8 mEq/L (5-15); Aspartate Amino Transferase 26 U/L (14-36); Bilirubin,Total 0.4 mg/dl (0.2-1.3); Calcium 8.3 mg/dl (8.4-10.2); Carbon Dioxide 22 mmol/L (22.0-30.0); Globulin 2.4 g/dL (1.3-3.2); Glucose 95 mg/dl (74-100); Magnesium 1.7 mg/dl (1.6-2.3); Total Protein,Serum 5.3 g/dl (6.3-8.2)
[2024-12-16] MEDS: PROMETHAZINE HCL 25MG/ML 1ML VIAL 12.5 MG IV ×3 (07:53→22:27)
[2024-12-16] MEDS: SODIUM CHLORIDE 0.9% 25ML BAG 25 ML IV ×2 (08:06→16:27)
[2024-12-16] MEDS: 0.9 % SODIUM CHLORIDE 1000ML 1,000 ML 100 ML IV (08:09)
[2024-12-16 08:16] VITALS: BP 120/70; PULSE 73; RESP 16; TEMP 37.1; O2SAT 91
[2024-12-16 09:36] LABS: Anisocytosis 1+; Eosinophils % 1 % (0-3); Hypochromasia 1+; Lymphocytes % 2 % (10-50); Monocytes % 9 % (2-9); Neutrophils % 88 % (42-76); Platelet Estimate Normal; Total Cells Counted 100
[2024-12-16] MEDS: METRONIDAZ/SOD CHL 500 MG/100 ML PIGGYBACK 100 MG IV ×2 (10:20→22:42)
[2024-12-16 12:34] VITALS: BP 129/62; PULSE 80; RESP 18; TEMP 36.8; O2SAT 96
--- NOTE | 2024-12-16 14:33 | P.PN_ITS ---
Subjective *Date: 12/16/24 *Time: 14:33 Interval history: Status post abdominal surgery yesterday with appendectomy. Pain stable on current regimen. Had small amount of flatus overnight. No significant output from NG. Afebrile. Medical Exam Vital signs and Labs for Last 24 Hours: Vital Signs Temp Pulse Resp BP Pulse Ox O2 Del Method O2 Flow Rate 12/16/24 13:25 Nasal Cannula 2 12/16/24 12:34 98.3 F 80 18 129/62 96 Room Air 12/16/24 12:34 Nasal Cannula 2 12/16/24 11:17 Nasal Cannula 2 12/16/24 10:36 Nasal Cannula 2 12/16/24 09:13 Nasal Cannula 2 12/16/24 08:16 98.8 F 73 16 120/70 91 L Nasal Cannula 2 12/16/24 08:16 91 L Nasal Cannula 2 12/16/24 08:16 Nasal Cannula 2 12/16/24 07:30 Nasal Cannula 2 12/16/24 06:04 Nasal Cannula 2 12/16/24 04:15 98.5 F 75 17 114/64 94 L Room Air 12/16/24 00:05 Nasal Cannula 2 12/15/24 23:57 98.3 F 77 18 126/78 94 L Nasal Cannula 2 12/15/24 22:30 Room Air 12/15/24 20:00 98.3 F 86 17 119/64 93 L Room Air 12/15/24 17:28 98.0 F 85 16 103/55 L 93 L Nasal Cannula 2 12/15/24 17:28 Nasal Cannula 2 12/15/24 16:38 97.9 F 80 16 95/55 L 94 L Nasal Cannula 2 12/15/24 15:49 Nasal Cannula 2 12/15/24 15:38 98.2 F 85 15 96/47 L 94 L Nasal Cannula 2 Intake and Output 12/15/24 12/16/24 12/16/24 23:59 07:59 15:59 Intake Total 683 / 683 Output Total 450 / 450 Balance 233 / 233 Intake: Intake, Oral Amount 0 / 0 Intake, Total IV Amount 683 / 683 0.9 % Sodium Chloride 1000ML 1, 683 / 683 000 ml @ 100 mls/hr IV .Q10H [facility] Rx#:[id number] Output: Output, Urine Amount 450 / 450 Other: Number of Unmeasured Voids 0 Weight 83.915 kg Patient Weight 12/16/24 23:59 Weight 83.915 kg Laboratory Results - last 24 hr 12/15/24 07:25: Urine Color Yellow, Urine Appearance Clear, Urine pH 5.5, Ur Specific [place] >= 1.030, Urine Protein 1+, Urine Glucose (UA) Negative, Urine Ketones Negative, Urine Blood 2+, Urine Nitrate Negative, Urine Bilirubin 1+ A, Urine Urobilinogen 1.0, Ur Leukocyte Esterase Negative, Urine RBC 3-5, Urine WBC 20-50 A, Ur Squamous Epith Cells Occasional, Urine Bacteria 1+, Hyaline Casts Occ 12/16/24 06:55: WBC 8.7 D, RBC 3.31 L, Hgb 10.1 L, Hct 30.6 L, MCV 92.4, MCH 30.5, MCHC 33.0, RDW 13.7, Plt Count 268, MPV 9.8, Neut % (Auto) 86.0 H, Lymph % (Auto) 3.0 L, [place] % (Auto) 8.0, Eos % (Auto) 1.7, Baso % (Auto) 0.1, Neut # (Auto) 7.5, Lymph # (Auto) 0.3 L, [place] # (Auto) 0.7, Eos # (Auto) 0.2, Baso # (Auto) 0.0, Total Counted 100, Neutrophils % (Manual) 88 H, Lymphocytes % (Manual) 2 L, Monocytes % (Manual) 9, Eosinophils % (Manual) 1, Platelet Estimate Normal, Hypochromasia 1+, Anisocytosis 1+, Sodium 139, Potassium 3.8, Chloride 113 H, Carbon Dioxide 22, Anion Gap 7.8, BUN 17, Creatinine 0.80, Estimated Creat Clear 77, Estimated GFR 73, Est GFR ( Amer) 88, Glucose 95, Calcium 8.3 L, Magnesium 1.7 D, Total Bilirubin 0.4, AST 26 D, ALT 21 D, Alkaline Phosphatase 60, Total Protein 5.3 L D, Albumin 2.9 L, Globulin 2.4, Albumin/Globulin Ratio 1.2 I & O for Labs for Last 24 Hours: Intake & Output 12/13/24 12/14/24 12/15/24 12/16/24 23:59 23:59 23:59 23:59 Intake Total 2510 / 2510 683 / 683 Output Total 450 / 450 450 / 450 Balance 2059 / 2059 233 / 233 Weight 81.647 kg 83.915 kg Microbiology Reports for the Last 24 Hours: Microbiology 12/14/24 17:52 Urine,Clean Catch Urine Culture - Final Multiple organisms, suggests contamination. 12/14/24 19:25 Blood Blood Culture - Preliminary NO GROWTH AFTER 24 HOURS 12/14/24 18:19 Blood Blood Culture - Preliminary NO GROWTH AFTER 24 HOURS Constitutional: Present mild distress, obese and cooperative Head: Present atraumatic and normocephalic ENT: Present normal exam Comment:: NG in right nare with clear output Respiratory: Present normal respiratory effort; Absent rhonchi, wheezes or crackles Cardiac: Present Reg Rate and Rhythm GI: Present soft, tenderness (Worsen right lower abdomen) and diminished bowel sounds; Absent distention Extremities: Present normal inspection and full ROM Skin: Present intact; Absent erythema Neuro: Present Grossly Intact, alert, awake, oriented x 3 and moves all extremities Assessment and Plan *Assessment and plan (1) Acute appendicitis: Status: Acute Qualifiers: Acute appendicitis type: other Qualified Code(s): K35.890 - Other acute appendicitis without perforation or gangrene Category: Medical Code(s): K35.80 - Unspecified acute appendicitis (2) Sepsis: Status: Acute Qualifiers: Sepsis type: sepsis due to unspecified organism Sepsis acute organ dysf unction status: without acute organ dysfunction Qualified Code(s): A41.9 - Sepsis, unspecified organism Category: Medical Code(s): A41.9 - Sepsis, unspecified organism (3) UTI (urinary tract infection): Status: Acute Qualifiers: Urinary tract infection type: acute pyelonephritis Qualified Code(s): N10 - Acute pyelonephritis Category: Medical Code(s): N39.0 - Urinary tract infection, site not specified (4) Ulcerative colitis without complications: Status: Acute Category: Medical Code(s): K51.90 - Ulcerative colitis, unspecified, without complications Plan Status post appendectomy. Prolonged surgery necessitating partial removal of small bowel due to adhesions and significance of appendicitis. NG in place. Clamp NG today due to flatus. Initiate sips and chips. Monitor function over the next 24 hours. Continues to require patient management. Problems addressed as follows: #Sepsis #Appendicitis Meets criteria for fever and leukocytosis with positive appendicitis and positive urinary tract infection Continue Levaquin and Flagyl (penicillin allergy precludes Zosyn usage) Blood cultures obtained prior to antibiotic administration Discontinue maintenance IV fluids. #Acute appendicitis Discussed case with surgery, procedure complex due to adhesions. Removed a few inches of small bowel as well as appendix. Patient tolerated procedure well. Bowel rest with NG in place. - Will transition to clamping tube today as she is passing gas. Cautious initi ation of sips and chips. Remains n.p.o. until having bowel movement. - Continue IV antibiotics and IV pain medication. Monitor for toxicity with hydromorphone IV. #Acute cystitis Urinalysis cloudy with TNTC white cells, bacteria and leuk esterase Continue antibiotics as above Urine culture pending #Ulcerative colitis Stable, no flares recently per patient #Pain management with parenteral controlled substances multimodal pain medication White count 8.7, hemoglobin 10. BUN 17 with creatinine 0.8. Repeat CBC, CMP, magnesium ordered for the morning. Full code N.p.o.
[2024-12-16 16:25] VITALS: BP 136/73; PULSE 75; RESP 20; TEMP 36.9; O2SAT 94
--- NOTE | 2024-12-16 16:50 | PC.NURSE ---
13:10 - Dr. Robles in pt. room, NG clamped per Dr. Robles, Per Dr. Robles NG to remain clamped, start trial sips of clears and Ice chips. reports he will place orders. Nurse V/U.
--- NOTE | 2024-12-16 17:14 | P.PN_ITS ---
Subjective Narrative: Feels well today. No new complaints. She has passed flatus but has not yet had bowel movement. Her NG tube was clamped earlier today, and she has tolerated sips and chips without any nausea or vomiting. Her lower abdomen still feels sore. She has been up to the chair, but has not yet walked yet. Incentive spi rometry performed at 1500 mL. She reports she has been coughing up more phlegm today. Exam Data for Last 24 hours Vital signs and Labs for Last 24 Hours: Temp Pulse Resp BP Pulse Ox O2 Del Method O2 Flow Rate 98.5 F 75 20 136/73 94 L Nasal Cannula 1 12/16/24 16:25 12/16/24 16:25 12/16/24 16:25 12/16/24 16:25 12/16/24 16:25 12/16/24 16:12/16/24 16:25 Laboratory Results - last 24 hr 12/16/24 06:55: WBC 8.7 D, RBC 3.31 L, Hgb 10.1 L, Hct 30.6 L, MCV 92.4, MCH 30.5, MCHC 33.0, RDW 13.7, Plt Count 268, MPV 9.8, Neut % (Auto) 86.0 H, Lymph % (Auto) 3.0 L, [place] % (Auto) 8.0, Eos % (Auto) 1.7, Baso % (Auto) 0.1, Neut # (Auto) 7.5, Lymph # (Auto) 0.3 L, [place] # (Auto) 0.7, Eos # (Auto) 0.2, Baso # (Auto) 0.0, Total Counted 100, Neutrophils % (Manual) 88 H, Lymphocytes % (Manual) 2 L, Monocytes % (Manual) 9, Eosinophils % (Manual) 1, Platelet Estimate Normal, Hypochromasia 1+, Anisocytosis 1+, Sodium 139, Potassium 3.8, Chloride 113 H, Carbon Dioxide 22, Anion Gap 7.8, BUN 17, Creatinine 0.80, Estimated Creat Clear 77, Estimated GFR 73, Est GFR ( Amer) 88, Glucose 95, Calcium 8.3 L, Magnesium 1.7 D, Total Bilirubin 0.4, AST 26 D, ALT 21 D, Alkaline Phosphatase 60, Total Protein 5.3 L D, Albumin 2.9 L, Globulin 2.4, Albumin/Globulin Ratio 1.2 I & O for Last 24 hours: Intake & Output 12/13/24 12/14/24 12/15/24 12/16/24 23:59 23:59 23:59 23:59 Intake Total 2510 / 2510 683 / 683 Output Total 450 / 450 1150 / 1150 Balance 0 / 2059 -467 / -467 Weight 180 lb 185 lb Microbiology Reports for the Last 24 Hours: Microbiology 12/14/24 17:52 Urine,Clean Catch Urine Culture - Final Multiple organisms, suggests contamination. 12/14/24 19:25 Blood Blood Culture - Preliminary NO GROWTH AFTER 24 HOURS 12/14/24 18:19 Blood Blood Culture - Preliminary NO GROWTH AFTER 24 HOURS Constitutional Constitutional: no acute distress *Routine Abdominal Exam Abdominal: Present soft and normoactive bowel sounds; Absent tenderness or distended Comments: Dressings for lap sites and mini laparotomy incision are clean and dry. Progress Note: A&P Assessment and plan (1) Acute appendicitis: Status: Acute Assessment and plan: Postop day 1 status post laparoscopic appendectomy, and small bowel resection via mini laparotomy incision. She is doing well. Continue sips and chips. NG tube output was minimal, she had bowel sounds, and with passing flatus. She also tolerated her NG tube clamp most of the day. I removed at the bedside. Okay to slowly advance diet as GI function returns. Continue SCDs. Currently not on any pharmacologic anticoagulation. Patient encouraged to walk. Her hemoglobin has drifted down from 14 upon admission to 10 today. No tachycardia or hypotension to suggest active bleeding. If stable tomorrow, consider adding Lovenox for DVT prophylaxis. Chest x-ray showed atelectasis versus pneumonia. Encouraged pulmonary toilet. (2) Sepsis: Status: Acute (3) UTI (urinary tract infection): Status: Acute (4) Ulcerative colitis without complications: Status: Acute
[2024-12-16 20:15] VITALS: BP 147/76; PULSE 86; RESP 17; TEMP 36.9; O2SAT 90
--- NOTE | 2024-12-16 20:15 | PC.WOUNDNOTE ---
Lap sites x3 noted to abdomen. Telfa and tegaderm dressing clean, dry and intact.
[2024-12-16] MEDS: PANTOPRAZOLE 40MG VIAL 40 MG IV (20:40)
[2024-12-16] MEDS: TOPIRAMATE 100MG TABLET 100 MG PO (20:40)
[2024-12-16] MEDS: LEVOFLOXACIN/D5W 750 MG/150 ML 750 MG/150 ML PIGGYBACK 100 MG IV (20:40)
[2024-12-16] MEDS: ACETAMINOPHEN 1,000MG/100ML VIAL 1000 MG IV (22:42)
[2024-12-17] VITALS: BP 109/56; PULSE 75; RESP 18; TEMP 37; O2SAT 85
[2024-12-17 01:45] VITALS: O2SAT 96
[2024-12-17 04:00] VITALS: BMI 34.9
[2024-12-17 04:20] VITALS: BP 114/70; PULSE 66; RESP 17; TEMP 36.6; O2SAT 96
--- NOTE | 2024-12-17 04:30 | PC.WOUNDNOTE ---
Lap sites x3 noted to abdomen. Telfa and tegaderm dressing clean, dry and intact.
[2024-12-17 07:30] VITALS: BP 136/72; PULSE 65; RESP 18; TEMP 36.9; O2SAT 97
[2024-12-17 08:35] VITALS: O2SAT 97
--- NOTE | 2024-12-17 08:46 | EXP.DC.SUM ---
General Admission date:: 12/14/24 Discharge date: 12/17/24 HPI HPI HPI: Patient is a 64-year-old female who with history of ulcerative colitis diagnosed 3 years ago. Her colorectal surgeon is Dr. Vicente Beard. She presented to the emergency department in the evening of 12/14/2024 with complaints of fever, chills, aches, nausea, and right lower quadrant pain. She had seen her primary care provider the day before and urinalysis revealed findings consistent with urinary tract infection and she was started on Macrobid. She had a fever to 102.7. Evaluation in the emergency department revealed a mild leukocytosis. Urinalysis revealed positive leukocyte esterase, too numerous to count white blood cells, 2+ bacteria. CT scan was suggestive of acute mild uncomplicated distal appendicitis. Surgery was contacted. 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 Case was discussed and prior colonoscopy history was reviewed. It was felt it may be reasonable to treat this as a mild appendicitis. However, it was suggested if findings consistent with ulcerative colitis exacerbation were noted intraoperatively that patient could be transferred to [facility]. After this discussion with her colorectal surgeon plan was made for admission for management of presumed uncomplicated appendicitis. Patient has never required surgery for her ulcerative colitis as of yet. Her only prior abdominal surgery is on 03/15/2014 she underwent total vaginal hysterectomy by Dr. Wheatley for dysfunctional uterine bleeding. She developed pelvic hematoma for which she underwent transvaginal drainage by Dr. Wheatley with placement of CACHORRO drain 2 weeks later on 03/29/2014. However, she had developed refractory infected hematoma with pelvic abscess for which Dr. Hill did exploratory laparotomy for surgical washout and drainage. Hospital Course Hospital Course Hospital Course: Admitted for abdominal pain. Found to have necrotizing appendicitis. Status post appendectomy. Prolonged surgery necessitating partial removal of small bowel due to adhesions and significance of appendicitis. Initially had NG in place. Was able to remove after patient started passing gas. Advance to full liquid diet. Had bowel movement. Pain stable on oral regimen. Ambulating independently. Stable to discharge home with close follow-up as an outpatient. Problems addressed as follows: #Sepsis #Acute appendicitis # Ileocecal resection with end to end anastomosis Discussed case with surgery, procedure complex due to adhesions. Removed a few inches of small bowel as well as appendix. Patient tolerated procedure well. Meets criteria for sepsis with fever and leukocytosis with positive appendicitis and positive urinary tract infection. Initiated on Levaquin and Flagyl due to penicillin allergy. Tolerating well. Will transition to oral therapy at discharge to complete 7 days total of therapy. Able to progress diet as she had flatus and bowel movement prior to discharge. Tolerating full liquid diet. Afebrile with improvement in white count prior to harge with white count 5.9. Kidney function normal with BUN 13, creatinine 0.7. #Acute cystitis Urinalysis cloudy with TNTC white cells, bacteria and leuk esterase. Culture with multiple organisms. Complete antibiotics as above however. #Ulcerative colitis: Stable, no flares recently per patient #Pain management with parenteral controlled substances: Discharged home with short course of hydrocodone. Encourage bowel regimen to decrease risk for constipation secondary to opiates. Total time spent on discharge 36 minutes in counseling, documentation, chart review, and direct care with patient. Exam Data for Last 24 hours Vital signs and Labs for Last 24 Hours: Temp Pulse Resp BP Pulse Ox O2 Del Method O2 Flow Rate 98.5 F 65 18 136/72 97 Room Air 2 12/17/24 07:30 12/17/24 07:30 12/17/24 07:30 12/17/24 07:30 12/17/24 08:35 12/17/24 08:35 12/17/24 07:35 Laboratory Results - last 24 hr 12/16/24 06:55: Total Counted 100, Neutrophils % (Manual) 88 H, Lymphocytes % (Manual) 2 L, Monocytes % (Manual) 9, Eosinophils % (Manual) 1, Platelet Estimate Normal, Hypochromasia 1+, Anisocytosis 1+ I & O for Last 24 hours: Intake & Output 12/14/24 12/15/24 12/16/24 12/17/24 23:59 23:59 23:59 23:59 Intake Total 2510 / 2510 2538 / 2538 Output Total 450 / 450 1875 / 1875 750 / 750 Balance 2059 / 2059 663 / 663 -750 / -750 Weight 81.647 kg 83.915 kg 86.183 kg Microbiology Reports for the Last 24 Hours: Microbiology 12/15/24 07:25 Urine,Catheterized Urine Culture - Final No growth. 12/14/24 19:25 Blood Blood Culture - Preliminary NO GROWTH AFTER 48 HOURS 12/14/24 18:19 Blood Blood Culture - Preliminary NO GROWTH AFTER 48 HOURS 12/14/24 17:52 Urine,Clean Catch Urine Culture - Final Multiple organisms, suggests contamination. Constitutional Constitutional: no acute distress, obese and cooperative *Routine HEENT Exam Head: Present normocephalic Eye: Present EOMI and PERRL ENT: Present mucous membranes moist *Routine Neck Exam Neck: Present supple; Absent lymphadenopathy *Routine Respiratory Exam Respiratory: Present CTA bilaterally *Routine Cardiovascular Exam Cardiovascular: Present RRR *Routine Abdominal Exam Abdominal: Present soft, normoactive bowel sounds and tenderness (Over surgical site.); Absent distended, rebound or guarding Comments: Active bowel sound *Routine Rectal Exam Patient deferred: visual exam *Routine Extremities Exam Extremities: Absent cyanosis, clubbing or edema *Routine Skin Exam Skin: Present warm; Absent rash *Routine Neurological Exam Neurological: Present alert, oriented X3 and moving all extremities; Absent altered mental status Results Data Completed and Pending Labs on day of discharge: Labs from last 24 hours 12/16/24 06:55 Total Counted 100 Neutrophils % (Manual) 88 H Lymphocytes % (Manual) 2 L Monocytes % (Manual) 9 Eosinophils % (Manual) 1 Platelet Estimate Normal Hypochromasia 1+ Anisocytosis 1+ Preliminary micro results at discharge 12/14/24 19:25 Blood Culture - Preliminary Blood NO GROWTH AFTER 48 HOURS 12/14/24 18:19 Blood Culture - Preliminary Blood NO GROWTH AFTER 48 HOURS DS: Diagnosis Discharge Diagnosis (1) Acute appendicitis: Status: Acute Code(s): K35.80 - Unspecified acute appendicitis Qualifiers: Acute appendicitis type: other Qualified Code(s): K35.890 - Other acute appendicitis without perforation or gangrene (2) Sepsis: Status: Acute Code(s): A41.9 - Sepsis, unspecified organism Qualifiers: Sepsis acute organ dysfunction status: without acute organ dysfunction Sepsis type: sepsis due to unspecified organism Qualified Code(s): A41.9 - Sepsis, unspecified organism (3) UTI (urinary tract infection): Status: Acute Code(s): N39.0 - Urinary tract infection, site not specified Qualifiers: Urinary tract infection type: acute pyelonephritis Qualified Code(s): N10 - Acute pyelonephritis (4) Ulcerative colitis without complications: Status: Acute Code(s): K51.90 - Ulcerative colitis, unspecified, without complications Meds Home Medications and Allergies Home Medications ?Medication ?Instructions ?Recorded ?Confirmed ?Type cholecalciferol (vitamin D3) 125 125 mcg PO DAILY 11/14/21 12/14/24 History mcg (5,000 unit) capsule fenofibrate nanocrystallized 145 145 mg PO DAILY 11/14/21 12/14/24 History mg tablet metoprolol succinate 25 mg 25 mg PO DAILY 12/14/24 12/14/24 History tablet,extended release 24 hr ozanimod 0.92 mg capsule (Zeposia) 0.92 mg PO DAILY 12/14/24 12/14/24 History pantoprazole 20 mg tablet,delayed 20 mg PO DAILY 12/14/24 12/14/24 History release bupropion HCl 150 mg 24 hr tablet, 150 mg PO DAILY 12/15/24 12/15/24 History extended release topiramate 100 mg tablet 100 mg PO HS 12/15/24 12/15/24 History hydrocodone 5 mg-acetaminophen 325 1 tab PO Q6HP PRN Moderate To 12/17/24 Rx mg tablet Severe Pain (4-10) 3 days #12 tabs levofloxacin 750 mg tablet 750 mg PO 2100 3 days #3 tabs 12/17/24 Rx metronidazole 500 mg tablet 500 mg PO Q12H 3 days #6 tabs 12/17/24 Rx promethazine 25 mg tablet 25 mg PO TID PRN nausea and 12/17/24 Rx vomiting #20 tabs sennosides 8.6 mg-docusate sodium 1 tab-cap PO HS #7 tabs 12/17/24 Rx 50 mg tablet (Colace 2-In-1) New Prescriptions to Start Prescriptions: hydrocodone-acetaminophen Anoop Robles levofloxacin Travis,Anoop metronidazole Anoop Robles promethazine Travis,Anoop sennosides-docusate sodium [Colace 2-In-1] Anoop Robles Allergies Allergy/AdvReac Type Severity Reaction Status Date / Time hydrochlorothiazide Allergy Mild Other Verified 12/14/24 23:32 lisinopril Allergy Mild Facial Verified 11/26/21 13:50 Swelling Penicillins (PENICILLINS) Allergy Mild Hives Verified 12/14/24 23:32 rosuvastatin (From Crestor) AdvReac Mild Headache Verified 12/14/24 23:32 Discharge Plan Disposition Patient Disposition: Home, Self-Care Condition: Good Discharge Order Discharge Orders: Discharge Order (Routine); Ordered 12/17/24 Ordered By: Anoop Robles Follow up Plan Follow up with: Tuan Leon MD [Staff Physician] - Enter time for follow up (Call the office on Wednesday to setup an appointment for this Wednesday.) Evans Giles MD [Primary Care Provider] - Enter time for follow up (Call the office on Wednesday for Follow up appointment in 1 week.) Prescriptions/Medication Reconciliation: New hydrocodone-acetaminophen 5-325 mg Tablet 1 tab PO Q6HP PRN (Reason: Moderate To Severe Pain (4-10)) 3 Days Qty: 12 0RF metronidazole 500 mg Tablet 500 mg PO Q12H 3 Days Qty: 6 0RF levofloxacin 750 mg Tablet 750 mg PO 2100 3 Days Qty: 3 0RF promethazine 25 mg tablet 25 mg PO TID PRN (Reason: nausea and vomiting) Qty: 20 0RF sennosides-docusate sodium [Colace 2-In-1] 8.6-50 mg tablet 1 tab-cap PO HS Qty: 7 0RF Continued fenofibrate nanocrystallized 145 mg tablet 145 mg PO DAILY cholecalciferol (vitamin D3) 125 mcg (5,000 unit) capsule 125 mcg PO DAILY pantoprazole 20 mg tablet,delayed release (DR/EC) 20 mg PO DAILY Patient Comments: TAKE 1 TABLET BY MOUTH ONCE DAILY metoprolol succinate 25 mg tablet extended release 24 hr 25 mg PO DAILY Patient Comments: TAKE 1 TABLET BY MOUTH ONCE DAILY FOR 90 DAYS Zeposia 0.92 mg Capsule 0.92 mg PO DAILY Held topiramate 100 mg tablet 100 mg PO HS Hold Instructions: Hold pending follow-up with PCP Patient Comments: TAKE 1 TABLET BY MOUTH AT BEDTIME FOR 30 DAYS bupropion HCl 150 mg tablet extended release 24 hr 150 mg PO DAILY Hold Instructions: Hold pending follow-up with PCP Patient Comments: TAKE 1 TABLET BY MOUTH IN THE MORNING ONCE DAILY FOR 30 DAYS Discontinued nitrofurantoin monohyd/m-cryst 100 mg capsule 100 mg PO BID Problem Reconciliation Problems Reviewed?: Yes Patient Discharge Instructions ACTIVITY: Continue current activity DIET: continue same diet and advance to your usual diet Patient Instructions: Appendicitis, DI for Small Bowel Resection, Appendectomy -- Laparoscopic Surgery Print Language: [place] Providers Primary Care Provider: Evans Giles Admit Provider: Aonop Robles Attending Provider: Anoop Robles
[2024-12-17 08:50] LABS: Basophils % 0.3 % (0.1-2.0); Eosinophils # 0.3 Kmm3 (0.0-0.4); Eosinophils % 5.4 % (0.1-12.0); Hematocrit 33.9 % (37.0-47.0); Immature Granulocytes # 0.07 10^3uL; Immature Granulocytes % 1.2 %; Lymphocytes # 0.2 K/mm3 (0.7-4.5); Lymphocytes % 3.7 % (10-50); Mean Corpuscular HGB Conc 32.4 g/dL (31.8-35.4); Mean Corpuscular Hemoglobin 30.3 pg (27.0-31.2); Mean Corpuscular Volume 93.4 fl (81-99); Mean Platelet Volume 9.6 fl (7.4-10.4); Monocytes # 0.5 K/mm3 (0.1-1.0); Monocytes % 8.8 % (1.7-9.3); Neutrophils # 4.7 K/mm3 (1.8-7.8); Neutrophils % 80.6 % (37.0-80.0); Nucleated Red Blood Cells # 0 10^3/uL; Nucleated Red Blood Cells % 0 %; Platelet Count 294 K/mm3 (142-424); Red Blood Count 3.63 M/mm3 (4.20-5.40); Red Cell Distribution Width 13.8 % (11.5-17.5); Red Cell Distribution Width-SD 47.5 fL; White Blood Count 5.9 K/mm3 (4.8-10.8)
[2024-12-17 08:56] LABS: Albumin Level 3.3 g/dl (3.5-5.0); Chloride 112 mmol/L (98-107); Potassium 3.6 mmoL/L (3.5-5.1); Sodium 137 mmol/L (136-145)
[2024-12-17 08:57] LABS: MANUAL DIFFERENTIAL MANUAL DIFFERENTIAL (MANUAL DIFF)
[2024-12-17 08:59] LABS: Alanine Aminotransferase 19 U/L (12-78); Albumin/Globulin Ratio 1.3 (1.1-1.8); Alkaline Phosphatase 65 U/L (38-126); Anion Gap 9.6 mEq/L (5-15); Aspartate Amino Transferase 26 U/L (14-36); Bilirubin,Total 0.5 mg/dl (0.2-1.3); Blood Urea Nitrogen 13 mg/dl (7-17); Calcium 8.9 mg/dl (8.4-10.2); Carbon Dioxide 19 mmol/L (22.0-30.0); Creatinine Clearance Estimated 79 mL/min (50-200); Estimated Glomerular Filt Rate 85 ml/min (>60); GFR (African American) 103 ML/MIN (>60); Globulin 2.5 g/dL (1.3-3.2); Glucose 91 mg/dl (74-100); Total Protein,Serum 5.8 g/dl (6.3-8.2)
--- NOTE | 2024-12-17 09:13 | P.PN_ITS ---
Subjective *Date: 12/17/24 *Time: 09:13 Medical Exam Vital signs and Labs for Last 24 Hours: Vital Signs Temp Pulse Resp BP Pulse Ox O2 Del Method O2 Flow Rate 12/17/24 08:35 97 Room Air 12/17/24 07:35 Nasal Cannula 2 12/17/24 07:30 98.5 F 65 18 136/72 97 Nasal Cannula 2 12/17/24 05:00 Nasal Cannula 2 12/17/24 04:20 97.9 F 66 17 114/70 96 Nasal Cannula 2 12/17/24 04:15 Nasal Cannula 12/17/24 03:00 Nasal Cannula 2 12/17/24 01:45 96 Nasal Cannula 2 12/17/24 01:00 Nasal Cannula 2 12/17/24 00:00 98.6 F 75 18 109/56 L 85 L Room Air 12/16/24 23:00 Room Air 12/16/24 21:00 Room Air 12/16/24 20:15 Room Air 12/16/24 20:15 98.4 F 86 17 147/76 H 90 L Room Air 12/16/24 19:00 Room Air 12/16/24 18:25 Nasal Cannula 2 12/16/24 17:27 Nasal Cannula 2 12/16/24 16:25 94 L Nasal Cannula 1 12/16/24 16:25 98.5 F 75 20 136/73 94 L Nasal Cannula 1 12/16/24 16:25 Nasal Cannula 1 12/16/24 15:09 Room Air 12/16/24 14:20 Nasal Cannula 2 12/16/24 13:25 Nasal Cannula 2 12/16/24 12:34 98.3 F 80 18 129/62 96 Room Air 12/16/24 12:34 Nasal Cannula 2 12/16/24 11:17 Nasal Cannula 2 12/16/24 10:36 Nasal Cannula 2 Intake and Output 12/16/24 12/17/24 12/17/24 23:59 07:59 15:59 Intake Total 1855 / 2538 480 / 480 Output Total 700 / 1875 750 / 750 Balance 1155 / 663 -750 / -270 480 / -270 Intake: Intake, Oral Amount 480 / 480 Intake, Total IV Amount 940 / 1623 Levofloxacin/D5w 750 mg/150 ml 940 / 940 750 mg In 150 ml @ 100 mls/hr IV Q24H TIFFANI Rx#:[id number] Infusion Intake 915 / 915 0.9 % Sodium Chloride 1000ML 1, 790 / 790 000 ml @ 100 mls/hr IV .Q10H TIFFANI Rx#:[id number] Levofloxacin/D5w 750 mg/150 ml 125 / 125 750 mg In 150 ml @ 100 mls/hr IV Q24H TIFFANI Rx#:[id number] Output: Output, Urine Amount 700 / 1150 750 / 750 Other: Weight 86.183 kg Patient Weight 12/17/24 23:59 Weight 86.183 kg Laboratory Results - last 24 hr 12/16/24 06:55: Total Counted 100, Neutrophils % (Manual) 88 H, Lymphocytes % (Manual) 2 L, Monocytes % (Manual) 9, Eosinophils % (Manual) 1, Platelet Estimate Normal, Hypochromasia 1+, Anisocytosis 1+ 12/17/24 08:25: WBC 5.9 D, RBC 3.63 L, Hgb 11.0 L, Hct 33.9 L, MCV 93.4, MCH 30.3, MCHC 32.4, RDW 13.8, Plt Count 294, MPV 9.6, Neut % (Auto) 80.6 H, Lymph % (Auto) 3.7 L, [place] % (Auto) 8.8, Eos % (Auto) 5.4, Baso % (Auto) 0.3, Neut # (Auto) 4.7, Lymph # (Auto) 0.2 L, [place] # (Auto) 0.5, Eos # (Auto) 0.3, Baso # (Auto) 0.0, Sodium 137, Potassium 3.6, Chloride 112 H, Carbon Dioxide 19 L, Anion Gap 9.6, BUN 13, Creatinine 0.70, Estimated Creat Clear 79, Estimated GFR 85, Est GFR ( Amer) 103, Glucose 91, Calcium 8.9, Total Bilirubin 0.5, AST 26, ALT 19, Alkaline Phosphatase 65, Total Protein 5.8 L, Albumin 3.3 L D, Globulin 2.5, Albumin/Globulin Ratio 1.3 I & O for Labs for Last 24 Hours: Intake & Output 12/14/24 12/15/24 12/16/24 12/17/24 23:59 23:59 23:59 23:59 Intake Total 2510 / 2510 2538 / 2538 480 / 480 Output Total 450 / 450 1875 / 1875 750 / 750 Balance 2059 663 / 663 -270 / -270 Weight 81.647 kg 83.915 kg 86.183 kg Microbiology Reports for the Last 24 Hours: Microbiology 12/15/24 07:25 Urine,Catheterized Urine Culture - Final No growth. 12/14/24 19:25 Blood Blood Culture - Preliminary NO GROWTH AFTER 48 HOURS 12/14/24 18:19 Blood Blood Culture - Preliminary NO GROWTH AFTER 48 HOURS 12/14/24 17:52 Urine,Clean Catch Urine Culture - Final Multiple organisms, suggests contamination. The patient's infection will respond to the chosen ABx?: Yes (BLOOD AND URINE CX NO GROWTH, AFEBRILE OVER 24 HR, WHITE BLOOD CELLS 5.9) Is the patient receiving the right drug, dose, and route?: Yes Could a more targeted ABx be ordered?: No How long ABx needed (days)?: 5
[2024-12-17 09:18] LABS: Magnesium 1.8 mg/dl (1.6-2.3)
[2024-12-17 10:39] LABS: Eosinophils % 3 % (0-3); Lymphocytes % 4 % (10-50); Monocytes % 3 % (2-9); Neutrophils % 90 % (42-76); Platelet Estimate Normal; RBC Morphology Normal; Total Cells Counted 100
--- NOTE | 2024-12-17 10:45 | EXP.SURG.PN ---
Subjective Patient reports: no new complaints Narrative: Passing flatus. Tolerated CLD. Eager to advance diet. Minimal pain. Wants to go home today if possible. Exam Data for Last 24 hours Vital signs and Labs for Last 24 Hours: Temp Pulse Resp BP Pulse Ox O2 Del Method O2 Flow Rate 98.5 F 65 18 136/72 97 Room Air 2 12/17/24 07:30 12/17/24 07:30 12/17/24 07:30 12/17/24 07:30 12/17/24 08:35 12/17/24 09:10 12/17/24 07:35 Laboratory Results - last 24 hr 12/17/24 08:25: WBC 5.9 D, RBC 3.63 L, Hgb 11.0 L, Hct 33.9 L, MCV 93.4, MCH 30.3, MCHC 32.4, RDW 13.8, Plt Count 294, MPV 9.6, Neut % (Auto) 80.6 H, Lymph % (Auto) 3.7 L, [place] % (Auto) 8.8, Eos % (Auto) 5.4, Baso % (Auto) 0.3, Neut # (Auto) 4.7, Lymph # (Auto) 0.2 L, [place] # (Auto) 0.5, Eos # (Auto) 0.3, Baso # (Auto) 0.0, Total Counted 100, Neutrophils % (Manual) 90 H, Lymphocytes % (Manual) 4 L, Monocytes % (Manual) 3, Eosinophils % (Manual) 3, Platelet Estimate Normal, RBC Morphology Normal, Sodium 137, Potassium 3.6, Chloride 112 H, Carbon Dioxide 19 L, Anion Gap 9.6, BUN 13, Creatinine 0.70, Estimated Creat Clear 79, Estimated GFR 85, Est GFR ( Amer) 103, Glucose 91, Calcium 8.9, Magnesium 1.8, Total Bilirubin 0.5, AST 26, ALT 19, Alkaline Phosphatase 65, Total Protein 5.8 L, Albumin 3.3 L D, Globulin 2.5, Albumin/Globulin Ratio 1.3 I & O for Last 24 hours: Intake & Output 12/14/24 12/15/24 12/16/24 12/17/24 23:59 23:59 23:59 23:59 Intake Total 2510 / 2510 2538 / 2538 480 / 480 Output Total 450 / 450 1875 / 1875 1350 / 1350 Balance 2059 / 2059 663 / 663 -870 / -870 Weight 180 lb 185 lb 190 lb Microbiology Reports for the Last 24 Hours: Microbiology 12/15/24 07:25 Urine,Catheterized Urine Culture - Final No growth. 12/14/24 19:25 Blood Blood Culture - Preliminary NO GROWTH AFTER 48 HOURS 12/14/24 18:19 Blood Blood Culture - Preliminary NO GROWTH AFTER 48 HOURS 12/14/24 17:52 Urine,Clean Catch Urine Culture - Final Multiple organisms, suggests contamination. Constitutional Constitutional: no acute distress *Routine Abdominal Exam Abdominal: Present soft and normoactive bowel sounds; Absent tenderness or distended Comments: dressings removed. incisions are c/d/i with jesse. No signs of infection. Progress Note: A&P Assessment and plan (1) Acute appendicitis: Status: Acute Assessment and plan: POD#2 s/p lap appy, SBR via mini-laparotomy incision Doing very well. Passing flatus, + BS. Awaiting BM. Advance diet. Transition to oral pain control. Ok to discharge when tolerating general diet, has has BM, and pain/nausea controlled on po meds. If discharged today, f/u with Dr. Leon in 5-7 days for staple removal, no lifting for 4-6 weeks, diet as tolerated. (2) Sepsis: Status: Acute (3) UTI (urinary tract infection): Status: Acute (4) Ulcerative colitis without complications: Status: Acute
[2024-12-17] MEDS: HYDROCODONE/APAP 5/325 MG TABLET 1 TAB PO (11:45)
[2024-12-17 11:55] VITALS: BP 141/74; PULSE 88; RESP 22; TEMP 36.9; O2SAT 97
[2024-12-17] MEDS: metroNIDAZOLE 500 MG TABLET PO (11:57)
--- NOTE | 2024-12-17 14:35 | PC.NURSE ---
Discharge education provided, questions encouraged and answered. Pt. v/u.
--- NOTE | 2024-12-18 13:31 | SW/DCPLANNER ---
Spoke with patient on the phone. Patient stated that she is doing good as expected. Patient stated that she was able to call and schedule her follow up appointments. Patient stated that she was able to get her new medicine picked up from [facility]. Patient stated that she has no concerns or questions at this time. Gail Garnett
== END 2024-12-17 14:40 | disposition home or self-care (01) | DRG 329 ==
LOC: ER 21:28 → 2ND 22:29 → OB 12-15 06:32 → 2ND 12-15 13:58
PROVIDERS: Nurse Practitioner Acute Care; Surgery; Admitting Provider Internal Medicine Adolescent Medicine; Emergency Provider Emergency Medicine; PCP Internal Medicine Adolescent Medicine; Visit Provider Internal Medicine Adolescent Medicine
PROC: 0DTH0ZZ Resection of Cecum, Open Approach (ICD-10-PCS; CPT 44950; principal; 2024-12-15 07:30)
DX: K35.890 Other acute appendicitis without perforation or gangrene (principal); A41.9 Sepsis, unspecified organism; N10 Acute pyelonephritis; K51.90 Ulcerative colitis, unspecified, without complications; Z88.0 Allergy status to penicillin; Z88.8 Allergy status to other drugs, medicaments and biological substances; Z53.31 Laparoscopic surgical procedure converted to open procedure
CPT/HCPCS: 36415; 71045; 74177; 80048; 80053; 81001; 83605; 83690; 83735; 84100; 85007; 85025; 87040; 87086; 87636; 96374; 99285; J0131; J1100; J1171; J1200; J1885; J1956; J2250; J2405; J2470; J2550; J3010; J7030; J7120; Q9967

== ENCOUNTER 2025-02-20 10:13 | Outpatient (CLI) | payer MEDICARE, SELFPAY ==
--- OUTSIDE RECORDS SUMMARY | 2025-02-20 10:15 | XMS_ITS | Encounter Summary ---
Author Organization [facility] Address [address] [place] [address] Care Team Providers Care Chopping Machine Operator Name Role Phone Evans Giles MD Primary Care Provider [phone] Encounter Details Date Type Department Care Team (Late st Contact Info) Description 04/24/2024 [facility] [address] [place] [address] Evans Giles MD [address] [place] [address] Social History Tobacco Use Types Packs/Day Years Used Date Smoking Tobacco: Former Cigarettes Passive Smoke Exposure: Past Smokeless Tobacco: Never Alcohol Use Standard Drinks/Week Comments Not Currently 0 (1 standard drink = 0.6 oz pur e alcohol) PHQ-2 Answer Date Recorded Patient Health Questionnaire-2 Score 0 05/28/2022 Comments Unknown Sex and Gender Information Value Date Recorded Sex Assigned at Not on file Legal Sex Female 7:32 PM EDT Gender Identity Not on file Sexual Orientation Not on file documented as of this encounter Plan of Treatment Not on file documented as of this encounter Visit Diagnoses Not on filedocumented in this encounter Additional Health Concerns Assessment Noted Time A fall risk assessment has been complete d for the patient 03/18/2023 8:51 AM EDT A Body Mass Index follow-up plan has been documented for the patient 03/24/2023 7:01 PM EDT documented as of this encounter Care Teams Chopping Machine Operator Relationship Specialty Start Date End Date Evans Giles MD [address] [place] [address] PCP - General 10/14/21 documented as of this encounter
--- OUTSIDE RECORDS SUMMARY | 2025-02-20 10:15 | XMS_ITS | Clinical Summary ---
Author Organization [employer] ([place], [place], [place], [place]) Address [address] [place] [address] Care Team Providers Care Artist'S Model Name Role Phone Unavailable Primary Care Provider Unavailabl e Social History Tobacco Use Types Packs/Day Years Used Date Smoking Tobacco: Never Assessed Comments Unknown Sex and Gender Information Value Date Recorded Sex Assigned at Female 01/27/2022 7:02 PM CDT Legal Sex Female 7:02 PM CDT Gender Identity Female 01/27/2022 7:02 PM CDT Sexual Orientation Not on file Plan of Treatment Not on file
--- OUTSIDE RECORDS SUMMARY | 2025-02-20 10:15 | XMS_ITS | Clinical Summary ---
Author Organization [facility] Address [address] [place] [address] Care Team Providers Care Service Loss Control Consultant Name Role Phone Evans Giles MD Primary Care Provider [phone] Allergies Active Allergy Reactions Criticality Noted Date Comments Rosuvastatin Headache Low 11/12/2022 Lisinopril Swelling High 10/14/2021 Penicillins Hives Medium 10/14/2021 Medications hydroCHLOROthiazi de (HYDRODiuril) 25 MG tablet 1 (one) time each day. 09/23/2021 Active methocarbamol (Robaxin) 750 MG tabletIndications :Rotator cuff tendinitis Take 1 tablet (750 mg total) by mouth 4 (four) times a day for 10 days. 40 tablet 10/14/2021 Active Ozanimod HCl (Zeposia) 0.92 MG capsule Take by mouth. Active zinc gluconate 50 MG tablet Take 50 mg by mouth 1 (one) time each day. Active cyanocobalamin (Vitamin B-12) 1000 MCG tablet Take 1,000 mcg by mouth 1 (one) time each day. Active fenofibrate (Tricor) 145 MG tablet Take 145 mg by mouth 1 (one) time each day. Active metoprolol succinate XL (Toprol-XL) 25 MG 24 hr tabletIndications :Essential hypertension Take 1 tablet (25 mg total) by mouth 1 (one) time each day. Do not crush or chew. 30 tablet 11 11/30/2022 Active Active Problems No known active problems Family History Medical History Relation Name Comments Hypertension Mother Relation Name Status Comments Father Mother Alive Social History Tobacco Use Types Packs/Day Years [...] on file Sexual Orientation Not on file Last Filed Vital Signs Vital Sign Reading Time Taken Comments Blood Pressure 127/62 03/18/2023 8:50 AM EDT Pulse 79 11/30/2022 1:13 PM EDT Temperature - - Respiratory Rate - - Oxygen Saturation 97% 07/09/2022 3:38 PM EST Inhaled Oxygen Concentration - - Weight 73.5 kg (162 lb) 03/18/2023 8:50 AM EDT Height 157.5 cm (5' 2 ) 03/18/2023 8:50 AM EDT Body Mass Index 29.63 03/18/2023 8:50 AM EDT Plan of Treatment Health Maintenance Due Date Last Done Comments [facility]-HIV Screening 1960 [facility]-Hepatitis C Screening 1962 [facility]-Medicare Annual Wellness (AWV) 1962 [facility]-/Child/Adol SDOH Screenings 1962 [facility]- SDOH Screenings 1980 [facility]-Adult SDOH Screenings 1980 [facility]-DTaP,Tdap,and Td Vaccines (1 - Tdap) 1981 [facility]-Pap Smear 10/09/1983 [facility]-Cervical Cancer Screening 1992 [facility]-HPV/Cotest 1992 CT Colonography 10/09/2007 Colonoscopy 10/09/2007 FIT-DNA 10/09/2007 FIT 10/09/2007 FOBT 10/09/2007 Sigmoidoscopy 10/09/2007 [facility]-Colorectal Cancer Screening 10/09/2007 [facility]-Breast Cancer Screening 2012 [facility]-Pneumococcal Vaccine: 50+ Years (1 of 1 - PCV) 2012 [facility]-Zoster Vaccines (1 of 2) 2012 [facility]-Depression Screening 05/28/2023 05/28/2022 CLO-MVDDW-12 Vaccine (2 - 2024-25 season) 2024 11/06/2020 [facility]-Influenza Vaccine (#1) 2025 05/20/2020 [facility]-RSV Vaccine: 60+ Years or (1 - 1-dose 75+ series) 2037 [facility]-Obesity Intervention Completed 023, 11/30/2022, 11/16/2022, Additional history exists HPV Vaccines Aged Out No longer eligi ble based on patient's age to complete this topic [facility]-HIB Vaccines Aged Out No longer e ligible based on patient's age to complete this topic [facility]-Hepatitis A Vaccines Aged Out No longer eligible based on patient's age to complete this topic [facility]-IPV Vaccines Aged Out No longer e ligible based on patient's age to complete this topic [facility]-Rotavirus Vaccines Aged Out No lo nger eligible based on patient's age to complete this topic Insurance E OLE[place] GARCES [id number] [facility] MEDICARE Care Teams Service Loss Control Consultant Relationship Specialty Start Date End Date Evans Giles MD [address] [place] [phone] PCP - General 10/14/21
--- OUTSIDE RECORDS SUMMARY | 2025-02-20 10:15 | XMS_ITS | Referral Summary ---
Author Organization [employer] ([place], [place], [place], [place]) Address [address] [place] [address] Care Team Providers Care Demand Planning Analyst Name Role Phone Unavailable Primary Care Provider [...]
[2025-02-20 11:11] LABS: Blood Urea Nitrogen 19 mg/dl (7-17); Creatinine,Serum 1.10 mg/dl (0.52-1.04); Estimated Glomerular Filt Rate 50 ml/min (>60); GFR (African American) 61 ML/MIN (>60)
== END 2025-02-20 23:59 | disposition home or self-care (01) ==
LOC: LAB 10:13
PROVIDERS: PCP Internal Medicine Adolescent Medicine; Visit Provider Surgery
DX: R10.31 Right lower quadrant pain (principal)
CPT/HCPCS: 36415; 82565; 84520

== ENCOUNTER 2025-03-02 07:46 | Outpatient (CLI) | payer MEDICARE, SELFPAY ==
--- OUTSIDE RECORDS SUMMARY | 2025-03-02 07:48 | XMS_ITS | Referral Summary ---
Author Organization [employer] ([place], [place], [place], [place]) Address [address] [place] [address] Care Team Providers Care Foot Doctor Name Role Phone Unavailable Primary Care Provider [...]
--- OUTSIDE RECORDS SUMMARY | 2025-03-02 07:48 | XMS_ITS | Clinical Summary ---
Author Organization [employer] ([place], [place], [place], [place]) Address [address] [place] [address] Care Team Providers Care Wildlife Science Professor Name Role Phone Unavailable Primary Care Provider [...]
--- OUTSIDE RECORDS SUMMARY | 2025-03-02 07:48 | XMS_ITS | Encounter Summary ---
Author Organization [facility] Address [address] [place] [address] Care Team Providers Care Fiber Optic Splicer Name Role Phone Evans Giles MD Primary Care Provider [phone] Encounter Details Date Type Department Care Team (Late st Contact Info) Description 04/24/2024 [facility] [address] [place] [address] Evans Giles MD [address] [place] [address] Social History Tobacco Use Types Packs/Day Years [...] documented as of this encounter Care Teams Fiber Optic Splicer Relationship Specialty Start Date End Date Evans Giles MD [address] [place] [address] PCP - General 10/14/21 documented as of this encounter
--- OUTSIDE RECORDS SUMMARY | 2025-03-02 07:48 | XMS_ITS | Clinical Summary ---
Author Organization [facility] Address [address] [place] [address] Care Team Providers Care Diet Aide Name Role Phone Evans Giles MD Primary Care Provider [phone] Allergies Active Allergy Reactions Criticality Noted Date [...] 2012 [facility]-Zoster Vaccines (1 of 2) 2012 [id number] Vaccine (2 - Sim risk series) 12/04/2020 11/06/2020 [facility]-RSV Vaccine: 60+ Years or (1 - Risk 60-74 years 1-dose series) 2022 [facility]-Depression Screening 05/28/2023 05/28/2022 [facility]-Influenza Vaccine (#1) 2025 05/20/2020 [facility]-Obesity Intervention Completed 023, 11/30/2022, 11/16/2022, Additional [...] complete this topic Insurance E OLEG GARCES [id number] [facility] MEDICARE Care Teams Diet Aide Relationship Specialty Start Date End Date Evans Giles MD [address] [place] [id number] PCP - General 10/14/21
--- NOTE | 2025-03-02 08:00 | CT_ITS ---
FINAL REPORT TECHNIQUE: Thin section axial images are obtained through the abdomen and pelvis after intravenous and oral contrast. Reconstruction images were obtained from the axial data. Exam was performed using dose reduction techniques. CLINICAL HISTORY: s/p Appendectomy 2 months COMPARISON: 12/14/2024 FINDINGS: LUNG BASES: Lung bases are clear. Heart size is normal. LIVER: Diffuse fatty infiltration. No focal lesion. GALLBLADDER/BILIARY SYSTEM: Gallbladder is present. No gallstones. No biliary dilatation. SPLEEN: Unremarkable. PANCREAS: Unremarkable. ADRENALS: Unremarkable. KIDNEYS/URETERS/BLADDER: Stable right renal cyst. No hydronephrosis or solid renal mass. Unremarkable urinary bladder. GI TRACT: No small bowel obstruction or dilatation. Appendix surgically absent. Mild wall thickening of the rectosigmoid junction proximal rectum could represent mild distal colitis. No evidence of abscess. PELVIC ORGANS: Uterus is absent. LYMPH NODES/RETROPERITONEUM/MESENTERY: Several mildly prominent retroperitoneal lymph nodes are stable and favored to be benign. No abdominal aortic aneurysm. ABDOMINAL WALL: Small fat containing umbilical hernia is stable.. FREE FLUID: Trace free fluid, likely physiologic. BONES: No acute osseous abnormality. IMPRESSION: Interval appendectomy. No evidence of abscess. Possible mild distal colitis. Reviewed, Interpreted and Dictated by Eileen Martínez MD Transcribed by Tahira Lyle Authenticated and [facility]
[2025-03-02] MEDS: IOPAMIDOL-370 (76%);100ML BOTTLE 75 ML IV (09:02)
[2025-03-02] MEDS: SODIUM CHLORIDE 0.9% 10ML SYR (RAD ONLY) 10 ML IV (09:02)
== END 2025-03-02 23:59 | disposition home or self-care (01) ==
LOC: RAD 07:47
PROVIDERS: PCP Internal Medicine Adolescent Medicine; Visit Provider Surgery
DX: R93.3 Abnormal findings on diagnostic imaging of other parts of digestive tract (principal); R10.31 Right lower quadrant pain; Z98.890 Other specified postprocedural states
CPT/HCPCS: 74177; Q9967

== ENCOUNTER 2025-05-30 13:27 | Outpatient (CLI) | payer MEDICARE, SELFPAY ==
--- OUTSIDE RECORDS SUMMARY | 2025-05-30 13:34 | XMS_ITS | Clinical Summary ---
Author Organization [employer] ([place], [place], [place], [place]) Address [address] [place] [address] Care Team Providers Care Broaching Machine Repairer Name Role Phone Unavailable Primary Care Provider [...]
--- OUTSIDE RECORDS SUMMARY | 2025-05-30 13:34 | XMS_ITS | Encounter Summary ---
Author Organization [facility] Address [address] [place] [address] Care Team Providers Care Wafer Fab Technician Name Role Phone Evans Giles MD Primary Care Provider [phone] Encounter Details Date Type Department Care Team (Late st Contact Info) Description 04/24/2024 [facility] [address] [place] [address] Evans Giles MD [address] [place] [address] Social History Tobacco Use Types Packs/Day Years [...] documented as of this encounter Care Teams Wafer Fab Technician Relationship Specialty Start Date End Date Evans Giles MD [address] [place] [id number] PCP - General 10/14/21 documented as of this encounter
--- OUTSIDE RECORDS SUMMARY | 2025-05-30 13:34 | XMS_ITS | Referral Summary ---
Author Organization [employer] ([place], [place], [place], [place]) Address [address] [place] [address] Care Team Providers Care Tar Heater Operator Name Role Phone Unavailable Primary Care Provider [...]
--- OUTSIDE RECORDS SUMMARY | 2025-05-30 13:34 | XMS_ITS | Clinical Summary ---
Author Organization [facility] Address [address] [place] [address] Care Team Providers Care Ludlow Machine Operator Name Role Phone Evans Giles MD Primary Care Provider [phone] Allergies Active Allergy Reactions Criticality Noted Date [...] Screening 1962 [facility]-Medicare Annual Wellness (AWV) 1962 [facility]-Infant/Child/Adol SDOH Screenings 1962 [facility]- SDOH Screenings 1980 [...] 2012 [facility]-Zoster Vaccines (1 of 2) 2012 [id number] Vaccine (2 - Sim risk series) 12/04/2020 [...] complete this topic Insurance E OLEG GARCES [id number] [facility] MEDICARE Care Teams Ludlow Machine Operator Relationship Specialty Start Date End Date Evans Giles MD [address] [place] [id number] PCP - General 10/14/21
--- OUTSIDE RECORDS SUMMARY | 2025-05-30 13:34 | XMS_ITS | Data Portability ---
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 [email or web address] Not available 10/02/2020 11:03:58 10/11/2020 10/11/2020 MLF 1) Extrinsic extensor tightness with imbalances 2) Moderate adherence along the dorsal incision site 3) Brawny edema and swelling along the MCP joint and dorsal capsule. [email or web address] Not available 10/11/2020 07:46:46 10/15/2020 10/15/2020 MLF 1) Extrinsic extensor tightness with imbalances 2) Moderate adherence along the dorsal incision site 3) Brawny edema and swelling along the MCP joint and dorsal capsule. Not available 10/15/2020 11:53:05 10/23/2020 10/23/2020 MLF 1) Extrinsic extensor tightness with imbalances 2) Moderate adherence along the dorsal incision site 3) Brawny edema and swelling along the MCP joint and dorsal capsule. [email or web address] Not available 10/23/2020 12:58:29 Plan of Treatment Reminders Order Date Submit Date Provider Last Modified By Organization Details Last Modified Time Details Appointments None record ed. Lab None record ed. Referral None record ed. Procedures None record ed. Surgeries None record ed. Imaging None record ed. Medication Orders None record ed. Patient TargetsNo targets recorded. Patient Instructions Encounter Date Encounter Id Patient Instructions Last Modified By Organization Details Last Modified Time 10/03/2020 [id number] STG 1) Improving functional AROM to within 80-90% of the unaffected within an appropriate time-frame from the injury/surgery. 2) Obtain intrinsic length with a PDC of < 1cm and within 80-90% of the unaffected in 3-4 weeks 3) To achieve 80-90% of functional hydrostatic tester and pinch strength to maintain normal ADL function Rehab potential is Good Plan of Care (POC: 1-2x/week for 4-6 weeks. [email or web address] Not available 10/02/2020 11:03:58 10/11/2020 [id number] STG 1) Improving functional AROM to within 80-90% of the unaffected within an appropriate time-frame from the injury/surgery. 2) Obtain intrinsic length with a PDC of < 1cm and within 80-90% of the unaffected in 3-4 weeks 3) To achieve 80-90% of functional hydrostatic tester and pinch strength to maintain normal ADL function Rehab potential is Good Plan of Care (POC: 1-2x/week for 4-6 weeks. Not available 10/11/2020 07:46:46 10/15/2020 [id number] STG 1) Improving functional AROM to within 80-90% of the unaffected within an appropriate time-frame from the injury/surgery. 2) Obtain intrinsic length with a PDC of < 1cm and within 80-90% of the unaffected in 3-4 weeks 3) To achieve 80-90% of functional hydrostatic tester and pinch strength to maintain normal ADL function Rehab potential is Good Plan of Care (POC: 1-2x/week for 4-6 weeks. [email or web address] Not available 10/15/2020 11:53:05 10/23/2020 [id number] STG 1) Improving functional AROM to within 80-90% of the unaffected within an appropriate time-frame from the injury/surgery. 2) Obtain intrinsic length with a PDC of < 1cm and within 80-90% of the unaffected in 3-4 weeks 3) To achieve 80-90% of functional hydrostatic tester and pinch strength to maintain normal ADL function Rehab potential is Good Plan of Care (POC: 1-2x/week for 4-6 weeks. [email or web address] Not available 10/23/2020 12:58:29 Reason for Referral None Reported. Problems No Known Problems Procedures Surgical History Date Name Laterality Status Provider Name and Address Organization Details Recorded Time 10/24/19 21 OT Therapeutic Exercise completed ALTHEA BEARD, OTR/L, CHT [address] [place], [address], [facility] 10/23/2020 15:26:44 10/24/19 21 OT Manual Therapy completed ALTHEA BEARD, OTR/L, CHT [address] [place], [address], [facility] 10/23/2020 15:26:37 10/24/19 21 PT Paraffin Bath completed ALTHEA BEARD, OTR/L, CHT [address] [place], [address], [facility] 10/23/2020 12:58:29 10/16/19 21 OT Therapeutic Exercise completed ALTHEA BEARD OTR/L, CHT [address] [place], [address], [facility] 10/15/2020 11:53:04 10/16/19 21 OT Manual Therapy completed ALTHEA BEARD OTR/L, CHT [address] [place], [address], [facility] 10/15/2020 11:53:04 10/16/19 21 PT Paraffin Bath completed ALTHEA BEARD OTR/L, CHT [address] [place], [address], [facility] 10/15/2020 11:53:04 10/12/19 21 OT Therapeutic Exercise completed ALTHEA BEARD, OTR/L, CHT [address] [place], [address], [facility] 10/11/2020 14:01:03 10/12/19 21 OT Manual Therapy completed ALTHEA BEARD, OTR/L, CHT [address] [place], [address], [facility] 10/11/2020 07:46:45 10/12/19 21 PT Paraffin Bath completed ALTHEA BEARD, OTR/L, CHT [address] [place], [address], [facility] 10/11/2020 07:46:45 10/04/19 21 OT Therapeutic Exercise completed ALTHEA BEARD, OTR/L, CHT [address] [place], [address], [facility] 10/03/2020 11:46:44 10/04/19 21 OT Manual Therapy completed ALTHEA BEARD OTR/L, CHT [address] [place], [address], [facility] 10/02/2020 11:03:58 10/04/19 21 PT Paraffin Bath completed ALTHEA BEARD OTR/L, CHT [address] [place], [address], [facility] 10/02/2020 11:03:58 09/26/19 21 OT Therapeutic Exercise completed ALTHEA BEARD OTR/L, CHT [address] [place], [address], [facility] 09/26/2020 12:11:38 09/26/19 21 OT Manual Therapy completed ALTHEA BEARD OTR/L, CHT [address] [place], [address], [facility] 09/26/2020 07:45:48 09/26/19 21 PT Paraffin Bath completed ALTHEA BEARD OTR/L, CHT [address] [place], [address], [facility] 09/26/2020 07:45:48 09/10/19 21 OT Therapeutic Exercise completed ALTHEA BEARD OTR/L, CHT [address] [place], [address], [facility] 09/10/2020 14:17:20 09/10/19 21 OT Manual Therapy completed ALTHEA BEARD OTR/L, CHT [address] [place], [address], [facility] 09/10/2020 14:17:31 09/10/19 21 PT Paraffin Bath completed LATHEA BEARD OTR/L, CHT [address] [place], [address], [facility] 09/10/2020 08:15:23 09/06/19 21 OT Therapeutic Exercise completed ALTHEA BEARD OTR/L, CHT [address] [place], [address], [facility] 09/06/2020 14:24:27 09/06/19 21 OT Manual Therapy completed ALTHEA BEARD OTR/L, CHT [address] [place], [address], [facility] 09/06/2020 14:24:10 09/06/19 21 PT Paraffin Bath completed ALTHEA BEARD OTR/L, CHT [address] [place], [address], [facility] 09/06/2020 14:23:39 09/03/19 21 Orthotic Management; Subsequent Encounter completed ALTHEA BEARD OTR/L, CHT [address] [place], [address], [facility] 09/03/2020 15:27:25 09/03/19 21 Orthotic, WHFO, Dynamic Custom completed ALTHEA BEARD OTR/L, CHT [address] [place], [address], [facility] 09/03/2020 07:50:44 09/03/19 21 OT Therapeutic Exercise completed ALTHEA BEARD OTR/L, CHT [address] [place], [address], [facility] 09/03/2020 15:27:46 09/03/19 21 OT Manual Therapy completed ALTHEA BEARD OTR/L, CHT [address] [place], [address], [facility] 09/03/2020 15:27:17 09/03/19 21 PT Hot/Cold Pack completed ALTHEA BEARD OTR/L, CHT [address] [place], [address], [facility] 09/03/2020 07:50:44 08/28/19 21 Orthotic, WHFO, Dynamic Custom completed ALTHEA BEARD, OTR/L, CHT [address] [place], [address], [facility] 08/28/2020 16:58:25 08/28/19 21 OT Therapeutic Exercise completed ALTHEA BEARD, OTR/L, CHT [address] [place], [address], [facility] 08/28/2020 16:57:49 08/28/19 21 OT Manual Therapy completed ALTHEA BEARD, OTR/L, CHT [address] [place], [address], [facility] 08/28/2020 13:04:41 08/28/19 21 PT Hot/Cold Pack completed ALTHEA BEARD, OTR/L, CHT [address] [place], [address], [facility] 08/28/2020 13:04:41 08/26/19 21 OT Therapeutic Exercise completed ALTHEA BEARD, OTR/L, CHT [address] [place], [address], [facility] 08/26/2020 12:28:23 08/26/19 21 OT Manual Therapy completed ALTHEA BEARD, OTR/L, CHT [address] [place], [address], [facility] 08/26/2020 12:28:18 08/26/19 21 PT Hot/Cold Pack completed ALTHEA BEARD, OTR/L, CHT [address] [place], [address], [facility] 08/26/2020 07:55:16 08/23/19 21 OT Therapeutic Exercise completed ALTHEA BEARD, OTR/L, CHT [address] [place], [address], [facility] 08/23/2020 15:54:13 08/23/19 21 OT Manual Therapy completed ALTHEA BEARD, OTR/L, CHT [address] [place], [address], [facility] 08/22/2020 07:32:46 08/23/19 21 PT E-Stim - Unattended completed ALTHEA BEARD, OTR/L, CHT [address] [place], [address], [facility] 08/23/2020 15:54:14 08/23/19 21 PT Hot/Cold Pack completed ALTHEA BEARD, OTR/L, CHT [address] [place], [address], [facility] 08/22/2020 07:32:46 08/19/19 21 OT Therapeutic Exercise completed ALTHEA BEARD, OTR/L, CHT [address] [place], [address], [facility] 08/19/2020 11:20:34 08/19/19 21 OT Manual Therapy completed ALTHEA BEARD, OTR/L, CHT [address] [place], [address], [facility] 08/19/2020 10:22:42 08/19/19 21 PT Hot/Cold Pack completed ALTHEA BEARD, OTR/L, CHT [address] [place], [address], [facility] 08/19/2020 10:22:37 08/15/19 21 OT Evaluation - Moderate complexity completed ALTHEA BEARD, OTR/L, CHT [address] [place], [address], [facility] 08/15/2020 11:22:55 08/05/19 21 OT Therapeutic Exercise completed ALTHEA BEARD, OTR/L, CHT [address] [place], [address], [facility] 08/05/2020 08:18:59 08/05/19 21 OT Manual Therapy completed ALTHEA BEARD, OTR/L, CHT [address] [place], [address], [facility] 08/05/2020 08:18:59 08/05/19 21 PT Paraffin Bath completed ALTHEA BEARD, OTR/L, CHT [address] [place], [address], [facility] 08/05/2020 08:18:59 07/23/20 20 PT Manual Therapy completed SOCORRO NASCIMENTO II, PT, DPT [address] [place], [address], [facility] 08/01/2020 13:38:02 07/23/20 20 PT Therapeutic Exercise completed SOCORRO NASCIMENTO II, PT, DPT [address] [place], [address], [facility] 08/01/2020 13:37:50 07/23/20 20 OT Therapeutic Exercise completed ALTHEA BEARD, OTR/L, CHT [address] [place], [address], [facility] 07/23/2020 11:17:02 07/23/20 20 OT Manual Therapy completed ALTHEA BEARD, OTR/L, CHT [address] [place], [address], [facility] 07/23/2020 08:29:26 07/23/20 20 PT Paraffin Bath completed ALTHEA BEARD, OTR/L, CHT [address] [place], [address], [facility] 07/23/2020 08:29:26 07/11/20 20 OT Manual Therapy completed ALTHEA BEARD, OTR/L, CHT [address] [place], [address], [facility] 07/10/2020 11:11:43 07/11/20 20 PT Paraffin Bath completed ALTHEA BEARD, OTR/L, CHT [address] [place], [address], [facility] 07/10/2020 11:11:43 07/11/20 20 PT Therapeutic Exercise completed ALTHEA BEARD, OTR/L, CHT [address] [place], [address], [facility] 07/11/2020 11:01:23 07/11/20 20 PT Therapeutic Exercise completed SOCORRO NASCIMENTO II, PT, DPT [address] [place], [address], [facility] 07/11/2020 11:26:01 07/05/20 20 OT Manual Therapy cancelled ALTHEA BEARD, OTR/L, CHT [address] [place], [address], [facility] 07/03/2020 10:29:57 07/05/20 20 PT Paraffin Bath cancelled ALTHEA BEARD OTR/L, CHT [address] [place], [address], [facility] 07/03/2020 10:29:57 07/05/20 20 PT Therapeutic Exercise cancelled ALTHEA BEARD OTR/L, CHT [address] [place], [address], [facility] 07/03/2020 10:29:57 06/24/20 20 Injection - Tendon Sheath/Ligament completed LESLIE OLVERA MD [address] [place], [address], [facility] 06/24/2020 15:08:25 06/24/20 20 PT Therapeutic Exercise completed SOCORRO NASCIMENTO II, PT, DPT [address] [place], [address], [facility] 07/03/2020 08:03:12 06/24/20 20 OT Manual Therapy completed ALTHEA BEARD OTR/L, CHT [address] [place], [address], [facility] 06/24/2020 13:56:09 06/24/20 20 PT Paraffin Bath completed ALTHEA BEARD OTR/L, CHT [address] [place], [address], [facility] 06/24/2020 08:42:09 06/24/20 20 PT Therapeutic Exercise completed ALTHEA BEARD OTR/L, CHT [address] [place], [address], [facility] 06/24/2020 13:56:13 06/21/20 20 PT Manual Therapy completed SOCORRO NASCIMENTO II, PT, DPT [address] [place], [address], [facility] 06/24/2020 09:52:18 06/21/20 PT Therapeutic Exercise completed SOCORRO NASCIMENTO II, PT, DPT [address] [place], [address], [facility] 06/24/2020 09:52:01 06/21/20 PT Paraffin Bath completed ALTHEA BEARD, OTR/L, CHT [address] [place], [address], [facility] 06/20/2020 09:55:12 06/21/20 PT Therapeutic Exercise completed ALTHEA BEARD OTR/L, CHT [address] [place], [address], [facility] 06/20/2020 09:55:12 06/14/20 PT Manual Therapy completed SOCORRO NASCIMENTO II, PT, DPT [address] [place], [address], [facility] 06/21/2020 13:25:03 06/14/20 PT Therapeutic Exercise completed SOCORRO NASCIMENTO II, PT, DPT [address] [place], [address], [facility] 06/21/2020 13:24:50 06/14/20 PT E-Stim - Unattended completed ALTHEA BEARD, OTR/L, CHT [address] [place], [address], [facility] 06/13/2020 07:30:43 06/14/20 PT Manual Therapy completed ALTHEA BEARD OTR/L, CHT [address] [place], [address], [facility] 06/14/2020 10:54:24 06/14/20 PT Paraffin Bath completed ALTHEA BEARD OTR/L, CHT [address] [place], [address], [facility] 06/13/2020 07:30:43 06/14/20 PT Therapeutic Exercise completed ALTHEA BEARD OTR/L, CHT [address] [place], [address], [facility] 06/14/2020 10:54:30 05/30/20 20 OT Evaluation - Moderate complexity completed ALTHEA BEARD, OTR/L, CHT [address] [place], [address], [facility] 05/30/2020 07:37:14 05/30/20 20 PT E-Stim - Unattended completed ALTHEA BEARD, OTR/L, CHT [address] [place], [address], [facility] 05/30/2020 11:17:12 05/30/20 20 PT Paraffin Bath completed ALTHEA BEARD, OTR/L, CHT [address] [place], [address], [facility] 05/30/2020 11:17:05 05/30/20 20 PT Therapeutic Exercise completed ALTHEA BEARD, OTR/L, CHT [address] [place], [address], [facility] 05/30/2020 11:35:22 05/09/20 20 PT Manual Therapy completed SOCORRO NASCIMENTO II, PT, DPT [address] [place], [address], [facility] 05/22/2020 12:59:55 05/09/20 20 PT Therapeutic Exercise completed SOCORRO NASCIMENTO II, PT, DPT [address] [place], [address], [facility] 05/22/2020 12:59:45 04/22/20 20 PT Manual Therapy completed SOCORRO PHILIPT II, PT, DPT [address] [place], [address], [facility] 04/22/2020 15:50:36 04/22/20 20 PT Therapeutic Exercise completed SOCORRO PHILIPT II, PT, DPT [address] [place], [address], [facility] 04/22/2020 15:50:16 04/12/20 20 PT Manual Therapy completed SOCORRO PHILIPT II, PT, DPT [address] [place], [address], [facility] 04/22/2020 21:39:33 04/12/20 20 PT Therapeutic Exercise completed SOCORRO NASCIMENTO II, PT, DPT [address] [place], [address], [facility] 04/22/2020 21:39:17 04/02/20 20 PT Evaluation - Moderate Complexity completed SOCORRO NASCIMENTO II, PT, DPT [address] [place], [address], [facility] 04/02/2020 13:26:53 04/02/20 20 PT Therapeutic Exercise completed SOCORRO NASCIMENTO II, PT, DPT [address] [place] [address], [address], [facility] 04/12/2020 14:43:06 03/11/20 20 Injection - Joint/Bursa, Major completed YESY KASPER MD [address] [place] [address], [address] [place] [address] 03/15/2020 22:42:19 03/11/20 20 Injection - Joint/Bursa, Interm completed LESLIE OLVERA MD [address] [place] [address], [phone] [place] [address] 03/11/2020 14:10:08 03/11/20 20 Electromyography (EMG) with Nerve Conduction Study (NCV) completed Cherise oSusa (Nicky) [facility] 03/11/2020 13:25:31 05/03/20 19 Injection - Tendon Sheath/Ligament completed LESLIE OLVERA MD [address] [place] [address], [address] [place] [address] 05/03/2019 10:24:02 05/03/20 19 Injection - Carpal Tunnel completed LESLIE OLVERA MD [address] [place] [address] [address] [place] [address] 05/03/2019 10:23:47 Imaging Results None recorded. Procedure Notes None recorded. Medical Equipment None Reported. Allergies Allergen ID Allergen Name Allergen Category Reaction Reaction Severity Criticality Documentation Date Start Date Code Code System Note Provider Name and Address Organization Details Recorded Time 116192 Product containin g penicilli n (product) medicatio n hives Not available Not available 05/03/2019 42468 8001 SNOMED Lelo Trevino [facility] 9 09:47:00 845108 lisinopri l medicatio n other Not available Not available 07/17/2019 10316 RxNorm face sari Braden [facility] 9 14:40:11 Medications Name Sig Start Date Stop Date Status Note LastModified by Organization Details LastModified Time celecoxib 200 mg capsule Take 1 capsule every day by oral route. 11/26 completed Not Available Not Available Not Available meloxicam 15 mg tablet Take 1 tablet every day by oral route. 11/26 completed Not Available Not Available Not Available Medrol (Maxi) 4 mg tablets in a dose pack as directed 05/01 completed Not Available Not Available Not Available estradiol 0.1 mg/24 hr semiweekly transderma l patch Apply 1 patch twice a week by transder mal route. 11/26 completed Not Available Not Available Not Available tramadol 50 mg tablet TAKE 1 TABL PO Q 6 HRS PRN FOR UNCONTRO LLED PAIN 05/30 completed Not Available Not Available Not Available meloxicam 7.5 mg tablet TAKE 1 TAB PO QD WITH FOOD REGARDLE SS OF PAIL LEVEL FOR 1 WEEK, THEN TAKE ONLY PRN FOR PAIN RELIEF THEREAFT ER 08/26 completed Not Available Not Available Not Available Citrucel 500 mg tablet Take by oral route. 11/26 completed Not Available Not Available Not Available raloxifene 60 mg tablet Take 1 tablet every day by oral route. 11/26 completed Not Available Not Available Not Available hydrochlor othiazide 25 mg tablet Take 1 tablet every day by oral route. 11/04 completed Not Available Not Available Not Available Magnolia 10 mg-325 mg tablet Take 1/2-1 tab PO every 4-6 hrs as needed for uncontro lled pain. 09/23 completed Not Available Not Available Not Available gabapentin 100 mg capsule TAKE 1 CAPSULE PO QHS 09/23 completed Not Available Not Available Not Available ibuprofen 600 mg tablet Every six hours 05/03 completed Frequen cy: q6h;Alt Frequen cy: prn pain;Me dicatio n Descrip tion: ibuprof en; Dosage: 1; Route:o ral; refills :1; Quantit y:60 tablet Not Available Not Available Not Available Tylenol Extra Strength prn active Not Available Not Available Not Available Percocet 11/26 completed Not Available Not Available Not Available Neurontin 07/17 completed Not Available Not Available Not Available fenofibrat e 11/04 completed Not Available Not Available Not Available diclofenac 1 % topical gel APPLY 2 GRAMS TO THE AFFECTED AREA(S) BY TOPICAL ROUTE 4 TIMES PER DAY 11/26 completed Not Available Not Available Not Available Vitals Date Recorded Body height Body mass index (BMI) Body weight Pain severity - 0-10 verbal numeric rating [Score] - Reported Provider Name and Address Organization Details Last Updated DateTime 11/04/2020 157.48 cm 31.1 kg/m2 12232.7 g [address] [facility] 11/04/2020 14:20:07 Social History Question Answer Notes LastModified by [employer] Details LastModified Time Tobacco Smoking Status Former Smoker 9-10 months ago Lelo figueroa, [facility] 05/03/2019 09:47:41 What Is Your Level Of Caffeine Consumption? Occasional [email or web address] Information not available 05/03/2019 Which Of Your Hands Is Dominant? Right [email or web address] Information not available 05/03/2019 Marital Status [email or web address] Information not available 05/03/2019 Sex: Unknown Functional Status Question Answer Note LastModified by [email or web address] Shnergle Details LastModified Time What is your level of alcohol consumption? None [email or web address] Information not available 05/03/2019 Are you currently employed? 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 Family History Nothing Reported. Medical History Condition Response Allergies/Hayfever N Anxiety/Depression N Other N Gout N Thyroid Disease N Kidney Stones N Heart Conditions N Hernia N Migraines N COPD N Glaucoma N Pneumonia N Skin Problems N Immune System Disorder N Anesthesia Complications N Heart Attack (MA) N Mental Illness N Neurological Problems N Diabetes N Rheumatic Fever N Bleeding Disorder N Arthritis N Seizures/Epilepsy N Blood Clot N Tuberculosis N Genetic Disorder N AIDS/HIV N Cancer N Stroke N Asthma N Blood Thinners N Alcohol Overuse/Alcohol Abuse N Sleep Apnea N High Cholesterol N Liver Disease N Included as Review of Systems Y Hypertension N Osteoporosis N Kidney Disease N Gynecological HistoryNo gynecological history recorded. Obstetrics History GPAL:G 0 P 0 0 0 0 Past Encounters Encounter ID Performer Location Encounter Start Date Encounter Closed Date Diagnosis/Indication Diagnosis SNOMED-CT Code Diagnosis ICD10 Code Diagnosis IMO Codes Diagnosis Note [id number] LESLIE OLVERA MD [facility] [address] [place] [address] 05/03/2019 09:33:20 05/03/2019 10:26:01 Radial styloid tenosynovitis 39973435 M65.4 I think this was the initiating problem Carpal adalgisa jeremías syndrome 63743070 G56.01 May be somehow involved in a nerve mediated CRPS picture Swelling o f upper limb 186401575 R22.30 Right upper extremity swelling and stiffness [id number] LESLIE OLVERA MD [facility] [address] [place] [address] 05/31/2019 09:07:28 05/31/2019 10:45:41 Radial styloid tenosynovitis 77363830 M65.4 I think this was the initiating problem Carpal adalgisa jeremías syndrome 11398089 G56.01 May be somehow involved in a nerve mediated CRPS picture Swelling o f upper limb [id number] R22.30 Right upper extremity swelling and stiffness [id number] LESLIE OLVERA MD SURGERY SCHEDULE [address] [place] [address] 06/06/2019 06:35:24 06/06/2019 06:38:19 [id number] JAMEE DOYLE PA-C [facility] [address] [place] [address] 06/16/2019 10:12:49 06/16/2019 10:56:12 Radial styloid tenosynovitis 76797591 M65.4 doing well status post release of the right first dorsal compartmen t Carpal adalgisa jeremías syndrome 32190252 G56.01 doing well status post right carpal tunnel release Stiffness of right wrist 6072673945 19885 M25.426 [id number] LESLIE OLVERA MD [facility] [address] [place] [address] 07/17/2019 14:15:56 07/17/2019 14:52:32 Radial styloid tenosynovitis 63855024 M65.4 doing well status post release of the right first dorsal compartmen t Carpal adalgisa jeremías syndrome 54761787 G56.01 doing well status post right carpal tunnel release Stiffness of right wrist 0754039546 51724 M25.859 [id number] LESLIE OLVERA MD [facility] [address] [place] [address] 08/28/2019 13:19:31 08/28/2019 14:20:03 Radial styloid tenosynovitis 03496411 M65.4 doing well status post release of the right first dorsal compartmen t Carpal adalgisa jeremías syndrome 05019661 G56.01 doing well status post right carpal tunnel release Stiffness of right wrist 5159604412 80281 M25.727 [id number] LESLIE OLVERA MD [facility] [address] [place] [address] 11/27/2019 09:20:44 11/27/2019 11:11:45 Radial styloid tenosynovitis 29936233 M65.4 Resolved Carpal adalgisa jeremías syndrome 34408310 G56.01 Resolved Stiffness of right wrist 2492920695 26771 M25.031 [id number] LESLIE OLVERA MD [facility] [address] [place] [address] 02/14/2020 08:50:00 02/14/2020 10:25:50 Thoracic outlet syndrome 687091044 G54.0 Secondary to shoulder stiffness. Consult Dr. Kasper for shoulder range of motion, begin scapular stabilizat ion nerve gliding exercises to see if that helps, [id number] MARY SEGAL MD NEUROLOGY [facility] [address] [place] [address] 03/11/2020 12:23:25 03/11/2020 13:56:44 Pain of right wrist 7333585837 29436 M25.531 Pain in right thumb 1076 806543 778123 M79.072 [id number] LESLIE OLVERA MD [facility] [address] [place] [address] 03/11/2020 13:46:55 03/11/2020 14:12:46 Thoracic outlet syndrome 653278019 G54.0 Hold off on therapy, see if any treatment for her intrinsic shoulder pathology may help with the numbness and tingling, EMGs negative. Pain of right wrist 3169 401231 56782 M25.531 Moderate degenerati ve change noted, (? OSTEONECRO SIS LUNATE?) also somewhat tight dorsal compartmen t secondary to stiffness. Steroid injection wrist, if no significan t relief with home exercises then MRI wrist to see if the degenerati ve changes are worse than they appear on plain film. Synovitis, Osteonecro sis? [id number] YESY KASPER MD [facility] [address] [place] [address] 03/11/2020 15:11:19 03/11/2020 17:17:06 Adhesive capsulitis of right shoulder 9374574379 82810 M75.01 [id number] SOCORRO NASCIMENTO II, PT, DPT PHYSICAL THERAPY / HAND THERAPY [facility] [address] [place] [address] 04/02/2020 12:40:53 04/02/2020 16:58:48 Muscle spasm of head and/or neck 20616597 M62.838 Muscle weakness 09552418 M62.81 Muscular incoordination 72670722 R27.8 History of operative procedure on shoulder 610235163 Z98.708 [id number] SOCORRO NASCIMENTO II, PT, DPT PHYSICAL THERAPY / HAND THERAPY [facility] [address] [place] [address] 04/12/2020 10:46:42 04/12/2020 12:55:29 Muscle weakness 49711202 M62.81 Muscular incoordination 92659848 R27.8 History of operative procedure on shoulder 993623785 Z98.890 Muscle spa sm of head and/or neck 61720206 M62.094 [id number] LESLIE OLVERA MD [facility]THOPEDI [facility] [address] [place] [address] 04/22/2020 11:50:30 04/22/2020 14:03:36 Thoracic outlet syndrome 422957509 G54.0 Hold off on therapy, see if any treatment for her intrinsic shoulder pathology may help with the numbness and tingling, EMGs negative. Pain of right wrist 3169 275540 54760 M25.531 At this point, evaluate for osteonecro sis or signs of advanced degenerati ve change not visible on x-ray causing limited range of motion and pain. MRI right wrist, follow-up with the test consider arthroscop y versus continuati on of hand therapy [id number] SOCORRO NASCIMENTO II, PT, DPT PHYSICAL THERAPY / HAND THERAPY [facility] [address] [place] [address] 04/22/2020 11:50:02 04/22/2020 13:06:04 Muscle weakness 88033491 M62.81 History of operative procedure on shoulder 227417739 Z98.890 Muscular incoordination 32469020 R27.8 [id number] LESLIE OLVERA MD [facility]THOPEDI [facility] [address] [place] [address] 05/01/2020 14:44:25 05/01/2020 16:00:21 Idiopathic osteoarthritis 178990708 M19.91 Right wrist, possible inflammato ry. Arthroscop ic debridemen t/synovect rin, with soft tissue trapped for pathology, evaluate joint surfaces for definitive treatment, to stage the arthritis Stage II will Olegario menon of the arthritis, with ECU stabilizat ion [id number] SOCORRO NASCIMENTO II, PT, DPT PHYSICAL THERAPY / HAND THERAPY [facility] [address] [place] [address] 05/09/2020 10:45:56 05/09/2020 14:10:10 Muscle weakness 09131784 M62.81 Muscular incoordination 06581138 R27.8 History of operative procedure on shoulder 554384514 Z98.890 Muscle spa sm of head and/or neck 56159300 M62.128 [id number] LESLIE OLVERA MD SURGERY SCHEDULE [address] [place] [address] 05/16/2020 10:53:46 05/16/2020 10:54:29 [id number] LESLIE OLVERA MD [facility] [address] [place] [address] 05/27/2020 13:50:04 05/27/2020 15:14:07 Idiopathic osteoarthritis 805441432 M19.91 No significan t synovitis arthritis mild scapholuna te laxity however I do not recommend any surgery for the wrist pain at this point the maximize her range of motion and strength nonoperati vely. If the ECU subluxatio n flares up and becomes painful, then we can discuss that as a separate procedure [id number] ALTHEA BEARD, OTR/L, CHT PHYSICAL THERAPY / HAND THERAPY [facility] [address] [place] [address] 05/30/2020 10:41:02 05/30/2020 13:44:30 Osteoarthritis of wrist 689533743 M19.039 Right Wrist Arthroscop y [id number] ALTHEA BEARD OTR/L, CHT PHYSICAL THERAPY / HAND THERAPY [facility] [address] [place] [address] 06/14/2020 09:26:44 06/14/2020 11:06:22 Osteoarthritis of wrist 086676775 M19.039 Right Wrist Arthroscop y [id number] SOCORRO NASCIMENTO II, PT, DPT PHYSICAL THERAPY / HAND THERAPY [facility] [address] [place] [address] 06/14/2020 09:47:43 06/14/2020 13:07:27 Muscle weakness 23849291 M62.81 History of operative procedure on shoulder 795548936 Z98.890 Muscular incoordination 47098802 R27.8 Muscle spa sm of head and/or neck 58916933 M62.075 [id number] GEORGE PEREIRA/L, CHT PHYSICAL THERAPY / HAND THERAPY [facility] [address] [place] [address] 06/21/2020 09:49:44 06/21/2020 13:23:37 Osteoarthritis of wrist 574300794 M19.039 Right Wrist Arthroscop y [id number] SOCORRO NASCIMENTO II, PT, DPT PHYSICAL THERAPY / HAND THERAPY [facility] [address] [place] [address] 6 06/21/2020 09:50:59 06/21/2020 13:51:59 Muscle weakness 45143017 M62.81 Muscular incoordination 48462460 R27.8 History of operative procedure on shoulder 152562523 Z98.890 Muscle spa sm of head and/or neck 97260132 M62.511 [id number] GEORGE PEREIRA/L, CHT PHYSICAL THERAPY / HAND THERAPY [facility] [address] [place] [address] 6 06/24/2020 12:52:30 06/25/2020 07:52:18 Osteoarthritis of wrist 214470161 M19.039 Right Wrist Arthroscop y [id number] SOCORRO NASCIMENTO II, PT, DPT PHYSICAL THERAPY / HAND THERAPY [facility] [address] 06/24/2020 12:53:16 06/25/2020 07:23:33 Muscle weakness 10982544 M62.81 Muscular incoordination 62178241 R27.8 History of operative procedure on shoulder 813119585 Z98.890 Muscle spa sm of head and/or neck 60589162 M62.953 [id number] LESLIE OLVERA MD [facility]OPEDI [facility] [address] [place] [address] 06/24/2020 12:53:48 06/24/2020 15:26:14 Idiopathic osteoarthritis 237366016 M19.91 This a very mild scapholuna te laxity but this does not correlate with her symptoms and I would not address it because I believe that the stiffness associated with scapholuna te reconstruc tion would make her chief complaint worse. Radial sty loid tenosynovitis 81284713 M65.4 Status post release first dorsal compartmen t, was felt to be resolved the pain appears to be indicative of adhesions in this area.Stero id injection to perform some hydro-felicita is of any adhesions and also provide some possible pain relief to allow therapy to take effect, continue therapy.Fo llow-up 6 weeks [id number] GEORGE PEREIRA/Mary, CHT PHYSICAL THERAPY / HAND THERAPY [facility] [address] [place] [address] 07/11/2020 09:21:29 07/11/2020 11:01:38 Osteoarthritis of wrist 381188423 M19.039 Right Wrist Arthroscop y [id number] SOCORRO NASCIMENTO II, PT, DPT PHYSICAL THERAPY / HAND THERAPY [facility] [address] 07/11/2020 09:20:26 07/11/2020 11:27:27 Muscle weakness 01603304 M62.81 Muscular incoordination 42795549 R27.8 History of operative procedure on shoulder 127511090 Z98.890 Muscle spa sm of head and/or neck 96051979 M62.535 [id number] GEORGE PEREIRA/Mary, CHT PHYSICAL THERAPY / HAND THERAPY [facility] [address] 07/23/2020 09:52:05 07/23/2020 13:25:08 Osteoarthritis of wrist 442240409 M19.039 Right Wrist Arthroscop y [id number] SOCORRO NASCIMENTO II, PT, DPT PHYSICAL THERAPY / HAND THERAPY [facility] [address] 07/23/2020 09:52:32 07/23/2020 14:06:52 Muscle weakness 39660330 M62.81 Muscular incoordination 30629830 R27.8 History of operative procedure on shoulder 442645565 Z98.890 Muscle spa sm of head and/or neck 45907687 M62.842 [id number] GEORGE PEREIRA/Mary, CHT PHYSICAL THERAPY / HAND THERAPY [facility] [place] [address] 08/05/2020 13:20:40 10/29/2020 13:27:09 Osteoarthritis of wrist 380113759 M19.039 Right Wrist Arthroscop y [id number] LESLIE OLVERA MD [facility]EDI [facility] [place] [address] 08/05/2020 13:15:50 08/05/2020 13:46:23 Idiopathic osteoarthritis 350002465 M19.91 Radial sty loid tenosynovitis 98220472 M65.4 No response with injection. [id number] LESLIE OLVERA MD SURGERY SCHEDULE [address] [place] [address] 08/13/2020 08:03:19 08/13/2020 08:05:31 [id number] ALTHEA BEARD OTR/L, CHT PHYSICAL THERAPY / HAND THERAPY [facility] [place] [address] 08/15/2020 10:58:54 08/15/2020 12:48:06 Osteoarthritis of wrist 544069399 M19.039 Multiple tenolysis' (EPB/APL; ECRB/ECRL) [id number] ALTHEA BEARD OTR/L, CHT PHYSICAL THERAPY / HAND THERAPY [facility] [place] [address] 08/19/2020 09:11:26 08/19/2020 11:29:03 Osteoarthritis of wrist 642020199 M19.039 Multiple tenolysis' (EPB/APL; ECRB/ECRL) [id number] ALTHEA BEARD OTR/L, CHT PHYSICAL THERAPY / HAND THERAPY [facility] [place] [address] 08/23/2020 14:33:31 08/23/2020 16:17:18 Osteoarthritis of wrist 268104391 M19.039 Multiple tenolysis' (EPB/APL; ECRB/ECRL) [id number] GEORGE PEREIRA/L, CHT PHYSICAL THERAPY / HAND THERAPY [facility] [place] [address] 08/26/2020 10:05:38 08/26/2020 13:10:58 Osteoarthritis of wrist 726094445 M19.039 Multiple tenolysis' (EPB/APL; ECRB/ECRL) [id number] JAMEE DOYLE PA-C [facility] [address] [place], [place] [address] [place] [address] 08/26/2020 10:04:56 08/26/2020 10:45:28 Postoperative care 319824371 Z48.89 Idiopathic osteoarthritis 221817593 M19.91 doing well status post multiple extensor tendon tenolysis right wrist. Radial sty loid tenosynovitis 37232613 M65.4 [id number] ALTHEA BEARD OTR/L, CHT PHYSICAL THERAPY / HAND THERAPY [facility] [address] [place], [place] [address] [place] [address] 08/28/2020 14:26:19 08/29/2020 11:16:17 Osteoarthritis of wrist 478823138 M19.039 Multiple tenolysis' (EPB/APL; ECRB/ECRL) [id number] ALTHEA EBARD OTR/L, CHT PHYSICAL THERAPY / HAND THERAPY [facility] [address] [place], [place] [address] [place] [address] 09/03/2020 14:11:56 09/03/2020 16:11:38 Osteoarthritis of wrist 732103077 M19.039 Multiple tenolysis' (EPB/APL; ECRB/ECRL) [id number] ALTHEA BEARD OTR/L, CHT PHYSICAL THERAPY / HAND THERAPY [facility] [address] [place], [place] [address] [place] [address] 09/06/2020 12:43:02 09/06/2020 14:31:08 Osteoarthritis of wrist 093815141 M19.039 Multiple tenolysis' (EPB/APL; ECRB/ECRL) [id number] ALTHEA BEARD OTR/L, CHT PHYSICAL THERAPY / HAND THERAPY [facility] [address] [place], [place] [address] [place] [address] 09/10/2020 13:14:17 09/10/2020 16:19:56 Osteoarthritis of wrist 274299147 M19.039 Multiple tenolysis' (EPB/APL; ECRB/ECRL) [id number] LESLIE OLVERA MD ORTHOPEDI [facility] [place] [address] 09/23/2020 13:48:25 09/23/2020 14:23:25 Radial styloid tenosynovitis 20668418 M65.4 Contractur e of joint of right wrist 0375487099 13107 M24.531 Extensor tendon adhesions, 6 weeks status post tenolysis/ tenosynove ctomy, Excision extensor digiti manus brevis with intraopera tive full wrist flexion, 0 wrist flexion today. Continue therapy. Follow-up 6 weeks final check she knows that she may not have full wrist flexion Once it has all healed. [id number] GEORGE PEREIRA/Mary, CHT PHYSICAL THERAPY / HAND THERAPY [facility] [address] [place], [place] [address] [place] [address] 09/26/2020 11:00:09 09/26/2020 14:09:41 Osteoarthritis of wrist 150413169 M19.039 Multiple tenolysis' (EPB/APL; ECRB/ECRL) [id number] GEORGE PEREIRA/Mary, CHT PHYSICAL THERAPY / HAND THERAPY [facility] [address] [place], [place] [address] [address] 10/03/2020 10:50:10 10/03/2020 13:55:27 Osteoarthritis of wrist 216497112 M19.039 Multiple tenolysis' (EPB/APL; ECRB/ECRL) [id number] GEORGE PEREIRA/Mary, CHT PHYSICAL THERAPY / HAND THERAPY [facility] [address] [place], [place] [address] [address] 10/11/2020 13:00:49 10/11/2020 14:51:57 Osteoarthritis of wrist 330293447 M19.039 Multiple tenolysis' (EPB/APL; ECRB/ECRL) [id number] GEORGE PEREIRA/Mary, CHT PHYSICAL THERAPY / HAND THERAPY [facility] [address] [place], [place] [address] [address] 10/15/2020 13:27:18 10/15/2020 14:38:02 Osteoarthritis of wrist 196295336 M19.039 Multiple tenolysis' (EPB/APL; ECRB/ECRL) [id number] ALTHEA BEARD, OTR/L, CHT PHYSICAL THERAPY / HAND THERAPY [facility] [address] [place] [address] 10/23/2020 13:50:59 10/24/2020 09:16:06 Osteoarthritis of wrist 396692013 M19.039 Multiple tenolysis' (EPB/APL; ECRB/ECRL) [id number] LESLIE OLVERA MD [facility]THOPEDI [facility] [address] [address] 11/04/2020 13:51:35 11/04/2020 15:09:26 Radial styloid tenosynovitis 43802649 M65.4 Contractur e of joint of right wrist 8801899161 76962 M24.531 Extensor tendon adhesions, 12 weeks status post tenolysis/ tenosynove ctomy and excision of extensor digiti manus brevis. At this point she is a maximum medical improvemen t, she has a permanent partial impairment rating associated with her wrist range of motion, 10% upper extremity for the impairment flexion 3% upper extremity for the impairment of extension combines to 13% and converged 8% impairment of the whole person. She has no restrictio ns on the use of her wrist, no further follow-up suggested, she can discontinu e therapy. Health Concerns Section Related Observation LastModified by Organization Detai ls LastModified Time None Recorded Concern Status LastModified by Organization Details LastModified Time None Recorded Advance Directives Directive None Recorded Payers Insurance Date Sequence Insurance Name Policy Number Policy Faulkner Covered Member ID Faulkner Member ID Guarantor Name 08/05/2020 1 [facility] ([facility] [id number] R Tracey R Reynaldo [id number] Tracey Reynaldo 11/05/2020 [employer] Tracey Reynaldo [id number] Tracey Reynaldo 01/11/2022 PAYMENT PLAN Tracey Reynaldo 12/25/2020 1 [place] [id number] R Tracey R Reynaldo [id number] Tracey Reynaldo Notes Date Note Type Note Provider Name and Address Organization Details Recorded Time 10/03/2020 text/html Patient History: Pt reports that she is working on her wrist flexion at home. Pain (0-10): Some stinging/burning Pain in last 24 hours (0-10): How often symptoms experienced Constantly (76-100%), Frequently (51-75%), Occasionally (26-50%), Intermittently (0-25%): DOI: DOS: 08-13-2020 Performance Deficits: Pt reports having at least 3 performance deficits that are limiting ADL and IADL functional secondary to having hand/arm surgery/injury. GEORGE PEREIRA/Mary, [address], [address], [facility] 10/03/2020 11:47:44 10/11/2020 text/html Patient History: Pt reports that her wrist extension continues to improve with active therapy. Pain (0-10): Some stinging/burning Pain in last 24 hours (0-10): How often symptoms experienced Constantly (76-100%), Frequently (51-75%), Occasionally (26-50%), Intermittently (0-25%): DOI: DOS: 08-13-2020 Performance Deficits: Pt reports having at least 3 performance deficits that are limiting ADL and IADL functional secondary to having hand/arm surgery/injury. GEORGE PEREIRA/Mary, [address], [address], [facility] 10/11/2020 14:45:33 10/15/2020 text/html Patient History: Pt reports that she was able to peel potatos for the first time. Pain (0-10): Some stinging/burning Pain in last 24 hours (0-10): How often symptoms experienced Constantly (76-100%), Frequently (51-75%), Occasionally (26-50%), Intermittently (0-25%): DOI: DOS: 08-13-2020 Performance Deficits: Pt reports having at least 3 performance deficits that are limiting ADL and IADL functional secondary to having hand/arm surgery/injury. GEORGE PEREIRA/Mary, [address], [address], [facility] 10/15/2020 14:31:01 10/23/2020 text/html Patient History: Pt reports that she was able to use a vacuum this week. Pain (0-10): Some stinging/burning Pain in last 24 hours (0-10): How often symptoms experienced Constantly (76-100%), Frequently (51-75%), Occasionally (26-50%), Intermittently (0-25%): DOI: DOS: 08-13-2020 Performance Deficits: Pt reports having at least 3 performance deficits that are limiting ADL and IADL functional secondary to having hand/arm surgery/injury. ALTHEA BERAD, OTR/L, CHT [address] [place], [address], [facility] 10/23/2020 15:26:55 11/04/2020 text/html Primary Care Physician: Dr. Hurst Hand dominance: Right Location: Right Wrist Pain level: 3 10 Recent Surgery: Yes Procedure: RIGHT WRIST: Tenolysis Abductor pollicis longus and extensor pollicis brevis; Tenolysis extensor carpi radialis longus and brevis; Tenolysis extensor digitorum communis and extensor indicis proprius; Excision extensor Digiti manus brevis brevis Date of surgery: 08/13/2020 Duration: 4 month(s) GP 11-09-2020 In office procedure? No Previous upper extremity surgery? Yes Procedure:Rt shoulder arthroscopy, biceps tenotomy, capsular relase, subacromial decompression with acromioplasty, distal clavicle excision Approximate date of surgery:07/04/2019 Surgeon (if known): -[facility], 1ST DC RELEASE 06/06/2019 DR OLVERA Currently employed?: Disabled Are they currently working? No Is this injury associated with a Workers Compensation claim? No Patient arrived in: Patient returns for a recheck. Patient states that she will randomly have points in time where it feels like bee stings at random. Patient states that she also is concerned that every once in awhile her whole hand will fall asleep. Patient is still attending therapy once a week, but she does not notice a difference. Patient also notes a knot at the top of her wrist. LESLIE OLVERA MD [address] [place], [address], [facility] 11/04/2020 14:48:08 OBGyn Episode No OBEpisode recorded.
[2025-05-30 13:49] LABS: Blood Urea Nitrogen 21 mg/dl (7-17); Creatinine,Serum 1.20 mg/dl (0.52-1.04); Estimated Glomerular Filt Rate 46 ml/min (>60); GFR (African American) 55 ML/MIN (>60)
--- NOTE | 2025-05-30 14:00 | MR_ITS ---
FINAL REPORT CLINICAL HISTORY: right sided groin pain after hernia repair in november 2024 COMPARISON: None FINDINGS: Multiplanar MR imaging was obtained of the pelvis before and after the administration of contrast. There is no evidence of pelvic mass or inflammation. The urinary bladder is decompressed. There is no abnormal enhancement. There are few small inguinal lymph nodes, probably reactive. No localized inflammatory process. IMPRESSION: No localized inflammatory process. Reviewed, Interpreted and Dictated by Tom Hall MD Transcribed by Tahira Lyle Authenticated and . [facility]
[2025-05-30] MEDS: GADOTERIDOL INJ 20ML SYRINGE 16 ML IV (14:48)
[2025-05-30] MEDS: SODIUM CHLORIDE 0.9% 10ML SYR (RAD ONLY) 10 ML IV (14:48)
== END 2025-05-30 23:59 | disposition home or self-care (01) ==
LOC: RAD 13:27
PROVIDERS: PCP Internal Medicine Adolescent Medicine; Visit Provider Surgery
DX: R10.31 Right lower quadrant pain (principal); Z98.890 Other specified postprocedural states
CPT/HCPCS: 36415; 72197; 82565; 84520; A9576